=== PATIENT | female | born 1950 | race American Indian/Alaskan Native ===

== ENCOUNTER 2016-09-07 22:43 | Observation (INO) | payer MEDICAID, OTHER ==
[~2016-09-07] VITALS: Ht 165.1 cm; Wt 70.0 kg
[~2016-09-07 22:43] MED LIST: ALBU8.5H5 INH; FLUO20CA19 PO; FLUT16SP NAS; HYDR25TA11 PO; HYDR50TA13 PO; LEVO750T26 PO; OXYB5TAB7 PO; PHEN30CA PO; PREG75CA PO; QUET100T4 PO; QUET300T5 PO; TRAZ50TA18 PO
[2016-09-07 23:40] LABS: ASPARTATE AMINO TRANSFERASE 30 U/L (15-37); BLOOD UREA NITROGEN 6 mg/dL (7-18)
[2016-09-07 23:57] LABS: ACETAMINOPHEN < 2 mcg/mL (10-30)
[2016-09-08 00:32] LABS: DAU SCREEN DISCLAIMER
[2016-09-08] MEDS ORDERED: SERT25TA3 PO (01:34)
[2016-09-08] MEDS ORDERED: OXYB5TAB7 PO (01:34)
[2016-09-08] MEDS ORDERED: PREG50CA PO (01:34)
[2016-09-08] MEDS ORDERED: TRAZ50TA18 PO (01:34)
[2016-09-08] MEDS ORDERED: BISACODYL 10 MG SUPP PR PRN (05:00)
[2016-09-08] MEDS ORDERED: TRAZODONE 50MG TABLET PO PRN ×2 (05:00→21:00)
[2016-09-08] MEDS ORDERED: ACETAMINOPHEN 325 MG TABLET PO PRN (05:00)
[2016-09-08] MEDS ORDERED: POLYETHYLENE GLYCOL 17 GM PACKET PO PRN (05:00)
[2016-09-08] MEDS ORDERED: DOCUSATE 100 MG CAPSULE PO PRN (05:00)
[2016-09-08] MEDS ORDERED: FOLIC ACID 1 MG TABLET PO SCH (09:00)
[2016-09-08 17:33] VITALS: BP 112/71
[2016-09-08 19:21] VITALS: BP 113/70
[2016-09-08] MEDS: THIAMINE 100MG TABLET PO SCH (20:30)
[2016-09-08] MEDS: LORazepam 1MG TABLET PO PRN (23:52)
[2016-09-09] MEDS: THIAMINE 100MG TABLET PO SCH (08:26)
[2016-09-09] MEDS: LORazepam 1MG TABLET PO PRN ×2 (08:26→17:49)
[2016-09-09 08:33] VITALS: BP 112/72
[2016-09-09] MEDS ORDERED: OXYBUTYNIN CHLORIDE 5 MG TABLET PO SCH (09:00)
[2016-09-09] MEDS: FOLIC ACID 1 MG TABLET PO SCH (09:46)
[2016-09-09] MEDS: SERTRALINE 50MG TABLET PO SCH (10:13)
[2016-09-09] MEDS: SULFAMETH./TRIMETHOPRIM DS 800MG/160MG TABLET PO SCH ×2 (11:19→20:32)
[2016-09-09 20:01] VITALS: BP 111/75
[2016-09-09] MEDS: FLUOXETINE 20 MG CAPSULE PO SCH (20:31)
[2016-09-09] MEDS: TRAZODONE 150MG TABLET PO SCH (20:32)
[2016-09-09] MEDS: OXYBUTYNIN CHLORIDE 5 MG TABLET PO SCH (21:06)
[2016-09-10] MEDS: LORazepam 1MG TABLET PO PRN ×2 (01:39→16:42)
[2016-09-10 08:02] VITALS: BP 128/76
[2016-09-10] MEDS: OXYBUTYNIN CHLORIDE 5 MG TABLET PO SCH ×2 (08:14→20:40)
[2016-09-10] MEDS: THIAMINE 100MG TABLET PO SCH (08:14)
[2016-09-10] MEDS: SULFAMETH./TRIMETHOPRIM DS 800MG/160MG TABLET PO SCH ×2 (08:14→20:39)
[2016-09-10] MEDS: FOLIC ACID 1 MG TABLET PO SCH (08:14)
[2016-09-10] MEDS: SERTRALINE 50MG TABLET PO SCH (08:15)
[2016-09-10 20:00] VITALS: BP 110/73
[2016-09-10] MEDS: TRAZODONE 150MG TABLET PO SCH (20:39)
[2016-09-10] MEDS: FLUOXETINE 20 MG CAPSULE PO SCH (20:39)
[2016-09-11 08:32] VITALS: BP 83/53
[2016-09-11] MEDS: SULFAMETH./TRIMETHOPRIM DS 800MG/160MG TABLET PO SCH (08:47)
[2016-09-11] MEDS: FOLIC ACID 1 MG TABLET PO SCH (08:47)
[2016-09-11] MEDS: THIAMINE 100MG TABLET PO SCH (08:47)
[2016-09-11] MEDS: OXYBUTYNIN CHLORIDE 5 MG TABLET PO SCH ×2 (08:47→20:35)
[2016-09-11] MEDS: ARIPIPRAZOLE 10 MG TABLET PO SCH (12:38)
[2016-09-11] MEDS: LORazepam 1MG TABLET PO PRN ×2 (18:11→22:50)
[2016-09-11] MEDS: TRAZODONE 150MG TABLET PO SCH (20:35)
[2016-09-11] MEDS: FLUOXETINE 20 MG CAPSULE PO SCH (20:36)
[2016-09-11 21:02] VITALS: BP 122/76
[2016-09-12 08:00] VITALS: BP 100/63
[2016-09-12] MEDS: THIAMINE 100MG TABLET PO SCH (08:44)
[2016-09-12] MEDS: ARIPIPRAZOLE 10 MG TABLET PO SCH (08:44)
[2016-09-12] MEDS: OXYBUTYNIN CHLORIDE 5 MG TABLET PO SCH ×2 (08:44→20:50)
[2016-09-12] MEDS: FOLIC ACID 1 MG TABLET PO SCH (08:44)
[2016-09-12] MEDS ORDERED: FLUOXETINE 20 MG CAPSULE PO ONE (12:16)
[2016-09-12 20:05] VITALS: BP 104/61
[2016-09-12] MEDS: TRAZODONE 150MG TABLET PO SCH (20:50)
[2016-09-13 07:34] VITALS: BP 101/57
[2016-09-13] MEDS: ARIPIPRAZOLE 10 MG TABLET PO SCH (08:04)
[2016-09-13] MEDS: OXYBUTYNIN CHLORIDE 5 MG TABLET PO SCH (08:04)
[2016-09-13] MEDS: THIAMINE 100MG TABLET PO SCH (08:04)
[2016-09-13] MEDS: FOLIC ACID 1 MG TABLET PO SCH (08:31)
[2016-09-13] MEDS ORDERED: FLUOXETINE 20 MG CAPSULE PO SCH (09:00)
[2016-09-13] MEDS ORDERED: FLUO20CA8 PO (12:30)
[2016-09-13] MEDS ORDERED: ARIP10TA13 PO (12:30)
[2016-09-13] MEDS ORDERED: NALT50TA PO (12:33)
== END 2016-09-13 16:24 | disposition home or self-care (01) ==
LOC: ED 23:28 → EDIP 09-08 04:34 → 3E 09-08 17:28
PROVIDERS: ADMIT Internal Medicine
DX: R45.851 Suicidal ideations (principal); F43.21 Adjustment disorder with depressed mood; F31.9 Bipolar disorder, unspecified; F10.220 Alcohol dependence with intoxication, uncomplicated; M19.90 Unspecified osteoarthritis, unspecified site; E86.0 Dehydration; R79.89 Other specified abnormal findings of blood chemistry; E87.1 Hypo-osmolality and hyponatremia; F29 Unspecified psychosis not due to a substance or known physiological condition; N39.0 Urinary tract infection, site not specified; R45.850 Homicidal ideations; Z90.49 Acquired absence of other specified parts of digestive tract
CPT/HCPCS: 36415; 80053; 80307; 80329; 81001; 85025; 87086; 99285; G0378; Q0177; G0480

== ENCOUNTER 2016-12-16 17:48 | Inpatient (IN) | payer OTHER ==
[~2016-12-16] VITALS: Ht 170.2 cm; Wt 67.0 kg
[~2016-12-16 17:48] MED LIST changes: +ARIP10TA33 PO; +ETOMIDATE 40 MG/20 ML ONE; +FLUO20CA8 PO; +MAGNESIUM SULFATE 8 MEQ/2 ML, 2ML ONE; +MIDAZOLAM 1 MG/ML, 5ML ONE; +NALT50TA PO; +PREG50CA PO; +PROPOFOL 10 MG/ML, 50ML ONE; +SERT25TA3 PO; +VECURONIUM 10 MG ONE
[2016-12-16] MEDS ORDERED: LORazepam 2 MG/ML, 1ML ONE (17:52)
[2016-12-16] MEDS ORDERED: SODIUM CHLORIDE 0.9% 1,000ML IVBOLUS ONE (18:00)
[2016-12-16] MEDS ORDERED: PLEASE ENTER HEIGHT AND WEIGHT MC SCH (18:00)
[2016-12-16] MEDS ORDERED: LORazepam 2 MG/ML, 1ML IVPush ONE (18:00)
[2016-12-16] MEDS ORDERED: SODIUM CHLORIDE FLUSH 10ML SYR IVF ONE (18:00)
[2016-12-16 18:04] LABS: HEMATOCRIT 41.6 % (34.6-47.8); HEMOGLOBIN 13.9 g/dL (11.7-16.4); WHITE BLOOD COUNT 8.5 x10^3/uL (3.4-10)
[2016-12-16 18:22] LABS: ASPARTATE AMINO TRANSFERASE 28 U/L (15-37); BLOOD UREA NITROGEN 12 mg/dL (7-18)
[2016-12-16 18:26] LABS: DAU SCREEN DISCLAIMER
[2016-12-16 18:28] LABS: IS PT STATUS REG ER OR PRE ER? YES
[2016-12-16] MEDS ORDERED: METOPROLOL 1 MG/ML, 5ML ONE ×2 (18:54→19:07)
[2016-12-16] MEDS ORDERED: MAGNESIUM SULFATE PMX 2GM/50ML 50 ML IV ONE (19:00)
[2016-12-16] MEDS ORDERED: MAGNESIUM SULFATE 1 GM/2 ML IVPush ONE ×3 (19:00→19:30)
[2016-12-16] MEDS ORDERED: PROPOFOL 100 ML IV PRN (19:30)
[2016-12-16] MEDS ORDERED: VECURONIUM 10 MG IVPush ONE (19:30)
[2016-12-16] MEDS ORDERED: ESMOLOL/NS PMX 250 ML IV PRN ×2 (19:30→21:30)
[2016-12-16] MEDS ORDERED: MAGNESIUM SULFATE PMX 4GM/100M 100 ML IV ONE (19:30)
[2016-12-16] MEDS ORDERED: ETOMIDATE 40 MG/20 ML IVPush ONE (19:30)
[2016-12-16 19:33] LABS: ACETAMINOPHEN < 2 mcg/mL (10-30)
[2016-12-16 19:48] LABS: ABG COLLECTION SITE LEFT BRACHIAL
[2016-12-16] MEDS ORDERED: METOPROLOL 1 MG/ML, 5ML IVPush ONE (20:30)
[2016-12-16] MEDS ORDERED: MIDAZOLAM 1 MG/ML, 5ML IVPush ONE (20:30)
[2016-12-16] MEDS ORDERED: MIDAZOLAM HCL 25 MG in SODIUM CHLORIDE 0.9% 245 ML IV PRN (21:00)
[2016-12-16] MEDS ORDERED: SODIUM CHLORIDE FLUSH 10ML SYR IVF PRN (21:00)
[2016-12-16] MEDS ORDERED: BISACODYL 10 MG SUPP PR PRN ×2 (21:30→22:30)
[2016-12-16] MEDS ORDERED: SENNA/DOCUSATE TABLET NG PRN ×2 (21:30→22:30)
[2016-12-16] MEDS ORDERED: LACTULOSE 20 GM/30 ML UDC NG PRN ×2 (21:30→22:30)
[2016-12-16] MEDS ORDERED: GLUCAGON 1 MG IM PRN (21:30)
[2016-12-16] MEDS ORDERED: DEXTROSE 50%, 50ML SYRINGE IVPush PRN (21:30)
[2016-12-16] MEDS ORDERED: LIDOCAINE-MPF 1%, 2ML ENDO PRN ×2 (21:30→22:30)
[2016-12-16] MEDS ORDERED: PHARMACY MAY ADJ FOR RENAL FX MC SCH ×2 (21:30→22:30)
[2016-12-16] MEDS ORDERED: SENNOSIDES 8.8 MG/5 ML ORAL SOL NG PRN ×2 (21:30→22:30)
[2016-12-16] MEDS: ALBUTEROL/IPRATROPIUM 2.5MG/0.5MG, 3 ML INLINE SCH (22:30)
[2016-12-16] MEDS ORDERED: MIDAZOLAM 1 MG/ML, 2ML IVPush PRN (22:30)
[2016-12-16] MEDS ORDERED: PROPOFOL 100 ML IV ONE (23:19)
[2016-12-16] MEDS: FAMOTIDINE 20 MG/2 ML IV SCH (23:44)
[2016-12-16] MEDS: PROPOFOL 100 ML IV PRN (23:44)
[2016-12-17] MEDS: ALBUTEROL/IPRATROPIUM 2.5MG/0.5MG, 3 ML INLINE SCH ×2 (02:30→06:30)
[2016-12-17 02:32] LABS: HEMATOCRIT 38.3 % (34.6-47.8); HEMOGLOBIN 12.8 g/dL (11.7-16.4); WHITE BLOOD COUNT 7.7 x10^3/uL (3.4-10)
[2016-12-17 02:44] LABS: ASPARTATE AMINO TRANSFERASE 17 U/L (15-37); BLOOD UREA NITROGEN 10 mg/dL (7-18)
[2016-12-17] MEDS ORDERED: POTASSIUM CHLORIDE PMX 100 ML IV STA (03:08)
[2016-12-17] MEDS ORDERED: MAGNESIUM SULFATE PMX 2GM/50ML 50 ML IV STA (03:11)
[2016-12-17] MEDS: PROPOFOL 100 ML IV PRN ×4 (03:31→18:20)
[2016-12-17 04:27] LABS: ABG COLLECTION SITE LEFT RADIAL; COLLATERAL CIRCULATION TESTING NORMAL
[2016-12-17 04:59] VITALS: BP 128/79
[2016-12-17] MEDS ORDERED: LIDOCAINE/DEX 5% IV,2GM/500ML 500 ML IV SCH (07:30)
[2016-12-17] MEDS: LIDOCAINE/DEX 5% IV,2GM/500ML 500 ML IV PRN ×2 (07:57→16:11)
[2016-12-17] MEDS: SODIUM CHLORIDE FLUSH 10ML SYR IVF SCH ×2 (09:03→21:00)
[2016-12-17] MEDS: FAMOTIDINE 20 MG/2 ML IV SCH ×2 (09:04→20:59)
[2016-12-17] MEDS ORDERED: POTASSIUM CHLORIDE 40 MEQ in SODIUM CHLORIDE 0.9% 100 ML IV STA (11:17)
[2016-12-17] MEDS ORDERED: POTASSIUM CHLORIDE 10% 40 MEQ/30 ML UDC PO ONE ×2 (11:17→20:30)
[2016-12-17] MEDS: POTASSIUM CHLORIDE 30 MEQ in SODIUM CHLORIDE 0.9% 1,000 ML IV SCH (11:40)
[2016-12-17] MEDS: MIDAZOLAM HCL 50 MG in SODIUM CHLORIDE 0.9% 240 ML IV PRN (16:11)
[2016-12-17] MEDS ORDERED: MAGNESIUM SULFATE 1 GM/2 ML ONE (17:02)
[2016-12-17] MEDS ORDERED: ATROPINE 0.4 MG/ML, 1ML ONE (17:02)
[2016-12-17] MEDS ORDERED: EPINEPHRINE 1 MG/ML, 1ML ONE (17:02)
[2016-12-18] MEDS: PROPOFOL 100 ML IV PRN ×5 (00:01→21:58)
[2016-12-18] MEDS: POTASSIUM CHLORIDE 30 MEQ in SODIUM CHLORIDE 0.9% 1,000 ML IV SCH ×2 (02:29→16:28)
[2016-12-18] MEDS: LIDOCAINE/DEX 5% IV,2GM/500ML 500 ML IV PRN (02:30)
[2016-12-18 03:45] VITALS: BP 132/71
[2016-12-18 04:18] LABS: HEMATOCRIT 39.1 % (34.6-47.8); HEMOGLOBIN 12.9 g/dL (11.7-16.4); WHITE BLOOD COUNT 8.7 x10^3/uL (3.4-10)
[2016-12-18 04:25] LABS: BLOOD UREA NITROGEN 8 mg/dL (7-18)
[2016-12-18 04:26] LABS: ABG COLLECTION SITE RIGHT RADIAL; COLLATERAL CIRCULATION TESTING NORMAL
[2016-12-18] MEDS: MIDAZOLAM HCL 50 MG in SODIUM CHLORIDE 0.9% 240 ML IV PRN (04:41)
[2016-12-18] MEDS: ENOXAPARIN 40 MG/0.4 ML SQ SCH (10:14)
[2016-12-18] MEDS: FAMOTIDINE 20 MG/2 ML IV SCH (10:14)
[2016-12-18] MEDS: SODIUM CHLORIDE FLUSH 10ML SYR IVF SCH ×2 (10:14→19:54)
[2016-12-18] MEDS ORDERED: ALBUTEROL/IPRATROPIUM 2.5MG/0.5MG, 3 ML INLINE PRN (10:30)
[2016-12-18] MEDS: THIAMINE 100MG TABLET PO SCH (13:08)
[2016-12-18] MEDS ORDERED: POTASSIUM CHLORIDE 20 MEQ PACKET PO ONE ×2 (17:30→22:00)
[2016-12-18] MEDS: ACETAMINOPHEN 325 MG TABLET PO PRN (20:58)
[2016-12-19] MEDS: PROPOFOL 100 ML IV PRN ×2 (01:50→05:58)
[2016-12-19 04:00] VITALS: BP 118/60
[2016-12-19 04:39] LABS: ABG COLLECTION SITE RIGHT RADIAL; COLLATERAL CIRCULATION TESTING NORMAL
[2016-12-19 05:04] LABS: HEMOGLOBIN 12.6 g/dL (11.7-16.4); WHITE BLOOD COUNT 11.4 x10^3/uL (3.4-10)
[2016-12-19 05:14] LABS: BLOOD UREA NITROGEN 7 mg/dL (7-18)
[2016-12-19] MEDS: POTASSIUM CHLORIDE 30 MEQ in SODIUM CHLORIDE 0.9% 1,000 ML IV SCH (05:57)
[2016-12-19] MEDS ORDERED: MAGNESIUM SULFATE 3 GM in SODIUM CHLORIDE 0.9% 100 ML IV ONE (08:00)
[2016-12-19] MEDS: PANTOPRAZOLE 40 MG IV IVPush SCH (09:35)
[2016-12-19] MEDS: SODIUM CHLORIDE FLUSH 10ML SYR IVF SCH ×2 (09:35→20:17)
[2016-12-19] MEDS: ENOXAPARIN 40 MG/0.4 ML SQ SCH (09:35)
[2016-12-19] MEDS: THIAMINE 100MG TABLET PO SCH (09:35)
[2016-12-19] MEDS: LORazepam 2 MG/ML, 1ML IVPush PRN ×3 (16:05→22:41)
[2016-12-20] MEDS: POTASSIUM CHLORIDE 30 MEQ in SODIUM CHLORIDE 0.9% 1,000 ML IV SCH (00:16)
[2016-12-20] MEDS: LORazepam 2 MG/ML, 1ML IVPush PRN ×4 (00:50→15:29)
[2016-12-20 04:10] VITALS: BP 115/52
[2016-12-20 05:12] LABS: ABG COLLECTION SITE RIGHT RADIAL; COLLATERAL CIRCULATION TESTING NORMAL
[2016-12-20 05:23] LABS: BLOOD UREA NITROGEN 9 mg/dL (7-18)
[2016-12-20 05:29] LABS: HEMATOCRIT 36.9 % (34.6-47.8); HEMOGLOBIN 12.4 g/dL (11.7-16.4); WHITE BLOOD COUNT 10.5 x10^3/uL (3.4-10)
[2016-12-20] MEDS ORDERED: POTASSIUM CHLORIDE 20 MEQ TAB.ER.PRT PO ONE ×2 (06:00→21:00)
[2016-12-20] MEDS: ENOXAPARIN 40 MG/0.4 ML SQ SCH (10:37)
[2016-12-20] MEDS: THIAMINE 100MG TABLET PO SCH (10:37)
[2016-12-20] MEDS: PANTOPRAZOLE 40 MG IV IVPush SCH (12:40)
[2016-12-20] MEDS: SODIUM CHLORIDE FLUSH 10ML SYR IVF SCH ×2 (12:40→22:55)
[2016-12-20 19:45] VITALS: BP 119/75
[2016-12-20] MEDS ORDERED: POTASSIUM CHLORIDE 20 MEQ PACKET PO ONE (22:00)
[2016-12-21] MEDS ORDERED: POTASSIUM CHLORIDE 20 MEQ TAB.ER.PRT PO ONE
[2016-12-21 02:07] VITALS: BP 110/65
[2016-12-21] MEDS: LORazepam 2 MG/ML, 1ML IVPush PRN ×9 (02:10→22:42)
[2016-12-21 05:11] LABS: ABG COLLECTION SITE LEFT RADIAL; COLLATERAL CIRCULATION TESTING NORMAL
[2016-12-21 05:20] LABS: HEMATOCRIT 34.2 % (34.6-47.8); HEMOGLOBIN 11.4 g/dL (11.7-16.4); WHITE BLOOD COUNT 6.3 x10^3/uL (3.4-10)
[2016-12-21 05:28] LABS: ASPARTATE AMINO TRANSFERASE 14 U/L (15-37); BLOOD UREA NITROGEN 14 mg/dL (7-18)
[2016-12-21] MEDS: ACETAMINOPHEN 325 MG TABLET PO PRN ×2 (05:57→22:15)
[2016-12-21 07:41] VITALS: BP 102/68
[2016-12-21] MEDS: SODIUM CHLORIDE FLUSH 10ML SYR IVF SCH ×2 (09:24→20:41)
[2016-12-21] MEDS: PANTOPRAZOLE 40 MG IV IVPush SCH (09:33)
[2016-12-21] MEDS: THIAMINE 100MG TABLET PO SCH (09:33)
[2016-12-21] MEDS: ENOXAPARIN 40 MG/0.4 ML SQ SCH (09:33)
[2016-12-21 14:29] VITALS: BP 128/82
[2016-12-21 19:10] VITALS: BP 124/79
[2016-12-21] MEDS: FENTANYL PF 100 MCG/2ML IVPush PRN (23:30)
[2016-12-22] MEDS: LORazepam 2 MG/ML, 1ML IVPush PRN ×5 (02:20→22:06)
[2016-12-22 02:31] VITALS: BP 138/82
[2016-12-22] MEDS: FENTANYL PF 100 MCG/2ML IVPush PRN ×2 (03:10→05:51)
[2016-12-22 05:49] LABS: ABG COLLECTION SITE RIGHT RADIAL; COLLATERAL CIRCULATION TESTING NORMAL
[2016-12-22 06:21] LABS: HEMATOCRIT 33.6 % (34.6-47.8); HEMOGLOBIN 11.3 g/dL (11.7-16.4); WHITE BLOOD COUNT 5.6 x10^3/uL (3.4-10)
[2016-12-22 06:38] LABS: ASPARTATE AMINO TRANSFERASE 17 U/L (15-37); BLOOD UREA NITROGEN 14 mg/dL (7-18)
[2016-12-22 07:08] LABS: DIFF TOTAL CELLS COUNTED 100 CELL DIFF
[2016-12-22 07:12] LABS: VERIFY COUNTS? YES
[2016-12-22 07:49] VITALS: BP 146/80
[2016-12-22] MEDS: PANTOPRAZOLE 40 MG IV IVPush SCH (07:49)
[2016-12-22] MEDS: SODIUM CHLORIDE FLUSH 10ML SYR IVF SCH ×2 (07:50→22:07)
[2016-12-22] MEDS: THIAMINE 100MG TABLET PO SCH (07:50)
[2016-12-22] MEDS: ENOXAPARIN 40 MG/0.4 ML SQ SCH (07:50)
[2016-12-22 20:05] VITALS: BP 106/68
[2016-12-23] MEDS: LORazepam 2 MG/ML, 1ML IVPush PRN (01:49)
[2016-12-23] MEDS: FENTANYL PF 100 MCG/2ML IVPush PRN ×6 (02:42→22:58)
[2016-12-23 04:29] VITALS: BP 118/77
[2016-12-23 05:07] LABS: BLOOD UREA NITROGEN 20 mg/dL (7-18)
[2016-12-23 07:17] VITALS: BP 106/72
[2016-12-23] MEDS: THIAMINE 100MG TABLET PO SCH (08:10)
[2016-12-23] MEDS: ENOXAPARIN 40 MG/0.4 ML SQ SCH (08:10)
[2016-12-23] MEDS: SODIUM CHLORIDE FLUSH 10ML SYR IVF SCH ×2 (08:11→21:00)
[2016-12-23] MEDS: PANTOPRAZOLE 40 MG IV IVPush SCH (08:11)
[2016-12-23 08:55] LABS: ABG COLLECTION SITE RIGHT BRACHIAL
[2016-12-23 15:35] VITALS: BP 121/78
[2016-12-23] MEDS ORDERED: BISACODYL 10 MG SUPP PR PRN (20:00)
[2016-12-23] MEDS ORDERED: GLUCAGON 1 MG IM PRN (20:00)
[2016-12-23] MEDS ORDERED: PHARMACY MAY ADJ FOR RENAL FX MC SCH (20:00)
[2016-12-23] MEDS ORDERED: ACETAMINOPHEN 325 MG TABLET PO PRN (20:00)
[2016-12-23] MEDS ORDERED: LIDOCAINE-MPF 1%, 2ML ENDO PRN (20:00)
[2016-12-23] MEDS ORDERED: DEXTROSE 50%, 50ML SYRINGE IVPush PRN (20:00)
[2016-12-23] MEDS ORDERED: ALBUTEROL/IPRATROPIUM 2.5MG/0.5MG, 3 ML INLINE PRN (20:00)
[2016-12-23 21:30] VITALS: BP 127/70
[2016-12-24 02:14] VITALS: BP 100/64
[2016-12-24] MEDS: FENTANYL PF 100 MCG/2ML IVPush PRN ×4 (02:30→18:40)
[2016-12-24 06:07] LABS: HEMATOCRIT 37.3 % (34.6-47.8); HEMOGLOBIN 12.3 g/dL (11.7-16.4); WHITE BLOOD COUNT 7.2 x10^3/uL (3.4-10)
[2016-12-24 06:41] LABS: ASPARTATE AMINO TRANSFERASE 22 U/L (15-37); BLOOD UREA NITROGEN 34 mg/dL (7-18)
[2016-12-24 07:00] VITALS: BP 116/68
[2016-12-24] MEDS: ENOXAPARIN 40 MG/0.4 ML SQ SCH (08:45)
[2016-12-24] MEDS: PANTOPRAZOLE 40 MG IV IVPush SCH (08:45)
[2016-12-24] MEDS: SODIUM CHLORIDE FLUSH 10ML SYR IVF SCH ×2 (08:45→19:54)
[2016-12-24] MEDS: THIAMINE 100MG TABLET PO SCH (08:45)
[2016-12-24 12:32] VITALS: BP 108/67
[2016-12-24 12:43] LABS: BLOOD UREA NITROGEN 34 mg/dL (7-18)
[2016-12-24 13:52] LABS: HEMATOCRIT 37.9 % (34.6-47.8); HEMOGLOBIN 12.4 g/dL (11.7-16.4); WHITE BLOOD COUNT 8.7 x10^3/uL (3.4-10)
[2016-12-24 15:07] VITALS: BP 108/69
[2016-12-24 18:46] VITALS: BP 100/67
[2016-12-25 01:01] VITALS: BP 107/56
[2016-12-25 05:12] LABS: HEMATOCRIT 36.3 % (34.6-47.8); HEMOGLOBIN 11.8 g/dL (11.7-16.4); WHITE BLOOD COUNT 8.5 x10^3/uL (3.4-10)
[2016-12-25 05:26] LABS: BLOOD UREA NITROGEN 25 mg/dL (7-18)
[2016-12-25] MEDS ORDERED: CYANOCOBALAMIN 1,000 MCG/ML, 1ML IM ONE (07:00)
[2016-12-25 07:55] VITALS: BP 101/56
[2016-12-25] MEDS: ENOXAPARIN 40 MG/0.4 ML SQ SCH (09:19)
[2016-12-25] MEDS: THIAMINE 100MG TABLET PO SCH (09:19)
[2016-12-25] MEDS: OMEPRAZOLE 20 MG CAPSULE.DR PO SCH (09:19)
[2016-12-25] MEDS: SODIUM CHLORIDE FLUSH 10ML SYR IVF SCH ×2 (09:20→21:22)
[2016-12-25 13:22] VITALS: BP 101/61
[2016-12-25] MEDS ORDERED: TRAZ50TA18 PO (16:57)
[2016-12-25] MEDS ORDERED: QUET100T PO (16:57)
[2016-12-25 19:21] VITALS: BP 105/65
[2016-12-26 01:15] VITALS: BP 104/63
[2016-12-26 06:07] LABS: HEMATOCRIT 38.1 % (34.6-47.8); HEMOGLOBIN 12.8 g/dL (11.7-16.4); WHITE BLOOD COUNT 6.4 x10^3/uL (3.4-10)
[2016-12-26 06:38] LABS: BLOOD UREA NITROGEN 15 mg/dL (7-18)
[2016-12-26 07:35] VITALS: BP 99/63
[2016-12-26] MEDS: OMEPRAZOLE 20 MG CAPSULE.DR PO SCH (09:07)
[2016-12-26] MEDS: THIAMINE 100MG TABLET PO SCH (09:07)
[2016-12-26] MEDS: SODIUM CHLORIDE FLUSH 10ML SYR IVF SCH (09:08)
[2016-12-26] MEDS: ENOXAPARIN 40 MG/0.4 ML SQ SCH (09:08)
[2016-12-26 15:00] VITALS: BP 95/55
[2016-12-26 18:57] VITALS: BP 129/79
[2016-12-27 01:47] VITALS: BP 94/53
[2016-12-27 06:05] LABS: BLOOD UREA NITROGEN 14 mg/dL (7-18)
[2016-12-27 06:15] VITALS: BP 107/67
[2016-12-27 06:16] LABS: DIFF TOTAL CELLS COUNTED 100 CELL DIFF; HEMATOCRIT 39.4 % (34.6-47.8); HEMOGLOBIN 12.7 g/dL (11.7-16.4); WHITE BLOOD COUNT 10.9 x10^3/uL (3.4-10)
[2016-12-27 06:19] LABS: VERIFY COUNTS? YES
[2016-12-27 06:22] LABS: POLYCHROMASIA 1+
[2016-12-27] MEDS: SODIUM CHLORIDE FLUSH 10ML SYR IVF SCH ×2 (07:18→07:51)
[2016-12-27] MEDS: OMEPRAZOLE 20 MG CAPSULE.DR PO SCH (07:51)
[2016-12-27] MEDS: THIAMINE 100MG TABLET PO SCH (07:51)
[2016-12-27] MEDS: ENOXAPARIN 40 MG/0.4 ML SQ SCH (07:53)
[2016-12-27] MEDS ORDERED: TEMAZEPAM 30 MG CAPSULE PO PRN (08:00)
[2016-12-27 13:10] VITALS: BP 110/63
[2016-12-27] MEDS ORDERED: LURASIDONE 20 MG TABLET PO SCH (16:30)
[2016-12-27 19:13] VITALS: BP 122/73
[2016-12-27] MEDS ORDERED: TEMAZEPAM 15 MG CAPSULE ONE (23:06)
[2016-12-28] MEDS ORDERED: TEMAZEPAM 15 MG CAPSULE ONE (00:13)
[2016-12-28 01:38] VITALS: BP 117/64
[2016-12-28 07:25] LABS: HEMATOCRIT 40.6 % (34.6-47.8); HEMOGLOBIN 13.5 g/dL (11.7-16.4); WHITE BLOOD COUNT 7.4 x10^3/uL (3.4-10)
[2016-12-28 07:27] VITALS: BP 123/77
[2016-12-28 07:33] LABS: BLOOD UREA NITROGEN 14 mg/dL (7-18)
[2016-12-28] MEDS ORDERED: TEMA15CA PO (07:48)
[2016-12-28] MEDS ORDERED: LURA20TA PO (07:48)
[2016-12-28] MEDS: SODIUM CHLORIDE FLUSH 10ML SYR IVF SCH ×2 (09:00→09:04)
[2016-12-28] MEDS: OMEPRAZOLE 20 MG CAPSULE.DR PO SCH (09:04)
[2016-12-28] MEDS: ENOXAPARIN 40 MG/0.4 ML SQ SCH (09:04)
[2016-12-28] MEDS: THIAMINE 100MG TABLET PO SCH (09:04)
[2016-12-28] MEDS ORDERED: PNEUMOCOCCAL 23 VACCINE IM-VACC ONE (09:30)
== END 2016-12-28 12:50 | disposition home or self-care (01) | DRG 208 ==
LOC: ED 20:25 → EDIP 20:56 → CCU 21:44 → 5SO 12-20 17:52 → DCLOUNGE 12-28 12:35
PROVIDERS: ADMIT Hospitalist; ATTEND Hospitalist
PROC: 5A1945Z Respiratory Ventilation, 24-96 Consecutive Hours (ICD-10-PCS; principal; 2016-12-16)
PROC: 0BH17EZ Insertion of Endotracheal Airway into Trachea, Via Natural or Artificial Opening (ICD-10-PCS; 2016-12-16)
PROC: 02HV33Z Insertion of Infusion Device into Superior Vena Cava, Percutaneous Approach (ICD-10-PCS; 2016-12-16)
DX: J96.00 Acute respiratory failure, unspecified whether with hypoxia or hypercapnia (principal); I46.9 Cardiac arrest, cause unspecified; J69.0 Pneumonitis due to inhalation of food and vomit; G93.40 Encephalopathy, unspecified; I47.2 Ventricular tachycardia; F10.239 Alcohol dependence with withdrawal, unspecified; J98.11 Atelectasis; E87.6 Hypokalemia; F29 Unspecified psychosis not due to a substance or known physiological condition; F31.9 Bipolar disorder, unspecified; I48.91 Unspecified atrial fibrillation; F51.04 Psychophysiologic insomnia; M19.90 Unspecified osteoarthritis, unspecified site; Z78.1 Physical restraint status; Z87.891 Personal history of nicotine dependence; Z90.49 Acquired absence of other specified parts of digestive tract
CPT/HCPCS: 31500; 36415; 36600; 70450; 71010; 74000; 80048; 80053; 80307; 80329; 82040; 82140; 82607; 82803; 82962; 83735; 84100; 84132; 84443; 84478; 84484; 85025; 85610; 85730; 87070; 87081; 87205; 90732; 93005; 93306; 94002; 94003; 94150; 94640; 96361; 96374; 96375; 96376; 99292; J0171; J0461; J1650; J2001; J2250; J2704; J3010; J3475; J3480; J7620; C1751; C9113; G0479; G0480; J2060; J3420; J7030; J7050; S0028

== ENCOUNTER 2017-05-25 17:08 | Emergency (ER) | payer MEDICARE, MEDICAID ==
[~2017-05-25 17:08] MED LIST changes: -ETOMIDATE 40 MG/20 ML ONE; +LURA20TA PO; -MAGNESIUM SULFATE 8 MEQ/2 ML, 2ML ONE; -MIDAZOLAM 1 MG/ML, 5ML ONE; -PROPOFOL 10 MG/ML, 50ML ONE; +QUET100T PO; +TEMA15CA PO; -VECURONIUM 10 MG ONE
[2017-05-25 17:48] VITALS: BP 110/86
== END 2017-05-25 18:22 | disposition home or self-care (01) ==
LOC: ED 18:14
DX: R11.2 Nausea with vomiting, unspecified (principal); Z53.21 Procedure and treatment not carried out due to patient leaving prior to being seen by health care provider

== ENCOUNTER 2017-06-25 17:06 | Inpatient (IN) | payer MEDICARE, MEDICAID ==
[~2017-06-25] VITALS: Ht 167.6 cm; Wt 83.6 kg
[2017-06-25] MEDS ORDERED: SODIUM CHLORIDE 0.9% 1,000ML IVBOLUS ONE (17:30)
[2017-06-25] MEDS ORDERED: DILTIAZEM 5 MG/ML, 5ML ONE (17:43)
[2017-06-25] MEDS ORDERED: DILTIAZEM 5 MG/ML, 5ML IVPush ONE ×2 (18:00)
[2017-06-25 18:05] LABS: BASOPHILS % (AUTO) 0 % (0-1); EOSINOPHILS % (AUTO) 0 % (1-7); LYMPHOCYTES # (AUTO) 0.34 x10^3/uL (1-3.4); LYMPHOCYTES % (AUTO) 4 % (22-44); MD NO; MEAN CORPUSCULAR HEMOGLOBIN 30.4 pg (27.0-34.8); MEAN CORPUSCULAR HGB CONC 33.1 g/dL (32.4-35.8); MEAN CORPUSCULAR VOLUME 91.9 fL (80-100); MEAN PLATELET VOLUME 6.5 fL (7.4-10.4); MONOCYTES # (AUTO) 0.52 x10^3/uL (0.2-0.8); MONOCYTES % (AUTO) 6 % (2-9); NEUTROPHILS # (AUTO) 7.89 x10^3/uL (1.8-6.8); NEUTROPHILS % (AUTO) 90 % (42-75); PLATELET COUNT 190 x10^3/uL (130-400); RED BLOOD COUNT 4.55 x10^6/uL (3.82-5.3); RED CELL DISTRIBUTION WIDTH 16.7 % (9.6-15.2)
[2017-06-25 18:13] LABS: ALANINE AMINOTRANSFERASE 48 U/L (12-78); ALBUMIN 3.4 g/dL (3.4-5.0); ANION GAP 25 mmol/L (5-15); CALCIUM 8.5 mg/dL (8.5-10.1); CHLORIDE 99 mmol/L (98-107); CREATININE 1.21 mg/dL (0.55-1.02)
[2017-06-25] MEDS ORDERED: QUET100T4 PO (18:14)
[2017-06-25] MEDS ORDERED: TRAZ100T15 PO (18:14)
[2017-06-25 18:18] LABS: ALKALINE PHOSPHATASE 133 U/L (45-117); BILIRUBIN,TOTAL 0.8 mg/dL (0.2-1.0)
[2017-06-25] MEDS ORDERED: DILTIAZEM 125 MG in SODIUM CHLORIDE 0.9% 100 ML IV PRN ×2 (19:00→20:30)
[2017-06-25] MEDS ORDERED: ASPIRIN 81 MG TABLET CHEW PO ONE (19:00)
[2017-06-25] MEDS ORDERED: ASPIRIN 81 MG TABLET CHEW ONE ×2 (19:09→19:43)
[2017-06-25] MEDS ORDERED: SODIUM CHLORIDE 0.9% 1,000 ML IV ONE (19:17)
[2017-06-25] MEDS ORDERED: ONDANSETRON 2MG/ML, 2ML IVPush ONE (19:30)
[2017-06-25] MEDS ORDERED: ONDANSETRON ODT 4 MG PO ONE (19:30)
[2017-06-25] MEDS ORDERED: ONDANSETRON 2MG/ML, 2ML IVPush PRN ×2 (19:30→20:30)
[2017-06-25] MEDS ORDERED: LORazepam 2 MG/ML, 1ML ONE (19:42)
[2017-06-25] MEDS ORDERED: LORazepam 2 MG/ML, 1ML IVPush ONE (20:00)
[2017-06-25] MEDS ORDERED: LACTATED RINGERS 1,000 ML IVBOLUS ONE (20:30)
[2017-06-25] MEDS ORDERED: DIGOXIN 0.25 MG/ML, 2ML IVPush ONE (20:30)
[2017-06-25] MEDS ORDERED: ENOXAPARIN 40 MG/0.4 ML SQ SCH (20:30)
[2017-06-25] MEDS ORDERED: ONDANSETRON ODT 4 MG PO PRN (20:30)
[2017-06-25 20:46] VITALS: BP 106/67
[2017-06-25] MEDS ORDERED: LACTATED RINGERS 1,000 ML IV SCH (21:30)
[2017-06-25] MEDS ORDERED: PERMETHRIN CRM 5%, 60GM TP SCH (22:00)
[2017-06-25 23:20] LABS: TROPONIN I 0.159 ng/mL (0.000-0.045)
[2017-06-26] MEDS: LORazepam 2 MG/ML, 1ML IVPush PRN ×3 (00:08→04:49)
[2017-06-26] MEDS: PIPERONYL BUTOXIDE/PYRETHRINS SHAMPOO TP SCH (00:15)
[2017-06-26 01:31] LABS: MICROSCOPIC AUTO
[2017-06-26 01:34] LABS: CULTURE INDICATED? YES
[2017-06-26 01:43] LABS: AMPHETAMINE SCREEN, URINE Negative (Negative); BARBITURATE SCREEN, URINE Negative (Negative); BENZODIAZEPINE SCREEN, URINE Negative (Negative); CANNABINOID SCREEN, URINE Negative (Negative); COCAINE SCREEN, URINE Negative (Negative); METHADONE SCREEN, URINE Negative (Negative); OPIATE SCREEN, URINE Negative (Negative)
[2017-06-26] MEDS ORDERED: DIGOXIN 0.25 MG/ML, 2ML IVPush SCH (02:30)
[2017-06-26] MEDS ORDERED: CEFTRIAXONE PMX 1GM/50ML 50 ML IV SCH (03:00)
[2017-06-26 03:07] VITALS: BP 111/66
[2017-06-26 06:24] LABS: BASOPHILS # (AUTO) 0.02 x10^3/uL (0-0.1); BASOPHILS % (AUTO) 0 % (0-1); EOSINOPHILS % (AUTO) 0 % (1-7); LYMPHOCYTES # (AUTO) 0.33 x10^3/uL (1-3.4); LYMPHOCYTES % (AUTO) 4 % (22-44); MD NO; MEAN CORPUSCULAR HEMOGLOBIN 29.7 pg (27.0-34.8); MEAN CORPUSCULAR HGB CONC 33.1 g/dL (32.4-35.8); MEAN CORPUSCULAR VOLUME 89.9 fL (80-100); MEAN PLATELET VOLUME 6.6 fL (7.4-10.4); MONOCYTES # (AUTO) 0.21 x10^3/uL (0.2-0.8); MONOCYTES % (AUTO) 3 % (2-9); NEUTROPHILS # (AUTO) 7.23 x10^3/uL (1.8-6.8); NEUTROPHILS % (AUTO) 93 % (42-75); PLATELET COUNT 159 x10^3/uL (130-400); RED CELL DISTRIBUTION WIDTH 16.9 % (9.6-15.2)
[2017-06-26] MEDS ORDERED: FUROSEMIDE 20 MG/2 ML IV ONE ×2 (06:30→09:30)
[2017-06-26 06:36] LABS: ALANINE AMINOTRANSFERASE 37 U/L (12-78); ALBUMIN 2.9 g/dL (3.4-5.0); ANION GAP 16 mmol/L (5-15); CALCIUM 8.4 mg/dL (8.5-10.1); CHLORIDE 104 mmol/L (98-107); CREATININE 1.04 mg/dL (0.55-1.02)
[2017-06-26 06:41] LABS: ALKALINE PHOSPHATASE 111 U/L (45-117); TOTAL PROTEIN 6.7 g/dL (6.4-8.2)
[2017-06-26 08:40] VITALS: BP 101/62
[2017-06-26] MEDS ORDERED: FLUMAZENIL 0.1 MG/1 ML, 5ML IVPush ONE ×2 (09:30→12:00)
[2017-06-26] MEDS ORDERED: AMIODARONE 150 MG in DEXTROSE 5% 100 ML IVPB ONE (12:30)
[2017-06-26 12:31] LABS: FIO2 90 %
[2017-06-26] MEDS: AMIODARONE 450 MG in DEXTROSE 5% 250 ML IV PRN ×2 (12:54→21:47)
[2017-06-26] MEDS: FILTER 0.22 MICRON IV PRN (12:54)
[2017-06-26] MEDS: DOXYCYCLINE 100 MG in DEXTROSE 5% 250 ML IV SCH (12:55)
[2017-06-26] MEDS ORDERED: HEPARIN 5,000 UNITS/ML, 1ML IV ONE (13:30)
[2017-06-26] MEDS ORDERED: PROPOFOL 10 MG/ML, 100ML IV ONE (14:00)
[2017-06-26] MEDS ORDERED: SUCCINYLCHOLINE 20 MG/ML, 10ML ONE (14:00)
[2017-06-26] MEDS ORDERED: MIDAZOLAM 1 MG/ML, 5ML ONE (14:00)
[2017-06-26] MEDS: CEFTRIAXONE PMX 2GM/50ML 50 ML IV SCH (15:00)
[2017-06-26] MEDS: HEPARIN 25,000 UNITS/500ML PMX 500 ML IV PRN (15:14)
[2017-06-26] MEDS: ALBUTEROL/IPRATROPIUM 2.5MG/0.5MG, 3 ML INLINE SCH ×3 (16:30→23:13)
[2017-06-26] MEDS: FAMOTIDINE 20 MG/2 ML IV SCH (16:30)
[2017-06-26] MEDS ORDERED: BISACODYL 10 MG SUPP PR PRN (16:30)
[2017-06-26] MEDS ORDERED: SENNA/DOCUSATE TABLET NG PRN (16:30)
[2017-06-26] MEDS ORDERED: LIDOCAINE-MPF 1%, 2ML ENDO PRN (16:30)
[2017-06-26] MEDS ORDERED: PHARMACY MAY ADJ FOR RENAL FX MC SCH (16:30)
[2017-06-26] MEDS ORDERED: SENNOSIDES 8.8 MG/5 ML ORAL SOL NG PRN (16:30)
[2017-06-26] MEDS ORDERED: LACTULOSE 20 GM/30 ML UDC NG PRN (16:30)
[2017-06-26] MEDS: FUROSEMIDE 20 MG/2 ML IV SCH (17:00)
[2017-06-26] MEDS: CEFTRIAXONE 2 GM in DEXTROSE 5% 50 ML IVPB SCH (17:00)
[2017-06-26] MEDS ORDERED: DILTIAZEM 125 MG in SODIUM CHLORIDE 0.9% 100 ML IV SCH (20:30)
[2017-06-26] MEDS ORDERED: FAMOTIDINE 20 MG/2 ML IVPush SCH (21:00)
[2017-06-26] MEDS: POTASSIUM CHLORIDE 10% 20 MEQ/15 ML UDC PO SCH (21:27)
[2017-06-26] MEDS: ACETAMINOPHEN 325 MG TABLET PO PRN (21:37)
[2017-06-26 21:55] LABS: TROPONIN I 0.164 ng/mL (0.000-0.045)
[2017-06-26] MEDS: HEPARIN 5,000 UNITS/ML, 1ML IV PRN (22:50)
[2017-06-26] MEDS: PROPOFOL 100 ML IV PRN (23:02)
[2017-06-27] MEDS: DOXYCYCLINE 100 MG in DEXTROSE 5% 250 ML IV SCH ×3 (00:27→23:18)
[2017-06-27] MEDS: PROPOFOL 100 ML IV PRN ×5 (02:53→23:46)
[2017-06-27] MEDS: ALBUTEROL/IPRATROPIUM 2.5MG/0.5MG, 3 ML INLINE SCH ×6 (03:00→23:08)
[2017-06-27 04:42] LABS: BASOPHILS # (AUTO) 0.01 x10^3/uL (0-0.1); BASOPHILS % (AUTO) 0 % (0-1); EOSINOPHILS # (AUTO) 0.02 x10^3/uL (0-0.4); EOSINOPHILS % (AUTO) 0 % (1-7); LYMPHOCYTES # (AUTO) 1.02 x10^3/uL (1-3.4); LYMPHOCYTES % (AUTO) 17 % (22-44); MD NO; MEAN CORPUSCULAR HEMOGLOBIN 30.6 pg (27.0-34.8); MEAN CORPUSCULAR HGB CONC 33.5 g/dL (32.4-35.8); MEAN CORPUSCULAR VOLUME 91.5 fL (80-100); MEAN PLATELET VOLUME 7.6 fL (7.4-10.4); MONOCYTES # (AUTO) 0.38 x10^3/uL (0.2-0.8); MONOCYTES % (AUTO) 6 % (2-9); NEUTROPHILS % (AUTO) 76 % (42-75); PLATELET COUNT 105 x10^3/uL (130-400); RED BLOOD COUNT 3.95 x10^6/uL (3.82-5.3); RED CELL DISTRIBUTION WIDTH 16.5 % (9.6-15.2)
[2017-06-27 04:49] LABS: ALANINE AMINOTRANSFERASE 26 U/L (12-78); ALBUMIN 2.7 g/dL (3.4-5.0); ANION GAP 10 mmol/L (5-15); CALCIUM 8.3 mg/dL (8.5-10.1); CHLORIDE 98 mmol/L (98-107); CREATININE 0.98 mg/dL (0.55-1.02)
[2017-06-27 04:52] LABS: ALKALINE PHOSPHATASE 95 U/L (45-117); BILIRUBIN,TOTAL 0.8 mg/dL (0.2-1.0); TOTAL PROTEIN 6.7 g/dL (6.4-8.2)
[2017-06-27] MEDS: FAMOTIDINE 20 MG/2 ML IV SCH ×2 (05:05→16:58)
[2017-06-27] MEDS: POTASSIUM CHLORIDE 10% 20 MEQ/15 ML UDC PO SCH (07:45)
[2017-06-27] MEDS: FUROSEMIDE 20 MG/2 ML IV SCH ×2 (07:45→16:58)
[2017-06-27 08:48] LABS: TROPONIN I 0.133 ng/mL (0.000-0.045)
[2017-06-27] MEDS ORDERED: POTASSIUM PHOSPHATE 44 MEQ in SODIUM CHLORIDE 0.9% 500 ML IV ONE (09:00)
[2017-06-27] MEDS ORDERED: MAGNESIUM SULFATE PMX 2GM/50ML 50 ML IV ONE (09:30)
[2017-06-27] MEDS: FENTANYL PF 100 MCG/2ML IVPush PRN ×2 (10:26→18:44)
[2017-06-27] MEDS: HEPARIN 5,000 UNITS/ML, 1ML IV PRN (13:28)
[2017-06-27] MEDS: INSULIN LISPRO 100 UNITS/ML, PEN SQ-INSULIN SCH ×3 (13:29→21:00)
[2017-06-27] MEDS: AMIODARONE 450 MG in DEXTROSE 5% 250 ML IV PRN (13:29)
[2017-06-27] MEDS: FILTER 0.22 MICRON IV PRN (13:29)
[2017-06-27] MEDS: CEFTRIAXONE PMX 2GM/50ML 50 ML IV SCH (15:00)
[2017-06-27] MEDS: HEPARIN 25,000 UNITS/500ML PMX 500 ML IV PRN (15:32)
[2017-06-27] MEDS: CEFTRIAXONE 2 GM in DEXTROSE 5% 50 ML IVPB SCH (16:59)
[2017-06-27] MEDS ORDERED: POTASSIUM CHLORIDE 20 MEQ TAB.ER.PRT PO ONE ×2 (19:00→23:30)
[2017-06-28 02:22] LABS: ANION GAP 8 mmol/L (5-15); CALCIUM 7.7 mg/dL (8.5-10.1); CHLORIDE 100 mmol/L (98-107)
[2017-06-28 02:25] LABS: MEAN CORPUSCULAR HEMOGLOBIN 30.8 pg (27.0-34.8); MEAN CORPUSCULAR HGB CONC 33.9 g/dL (32.4-35.8); MEAN CORPUSCULAR VOLUME 90.9 fL (80-100); RED BLOOD COUNT 3.47 x10^6/uL (3.82-5.3); RED CELL DISTRIBUTION WIDTH 16.3 % (9.6-15.2)
[2017-06-28 02:39] LABS: BASOPHILS # (AUTO) 0.01 x10^3/uL (0-0.1); BASOPHILS % (AUTO) 0 % (0-1); EOSINOPHILS # (AUTO) 0.03 x10^3/uL (0-0.4); EOSINOPHILS % (AUTO) 1 % (1-7); LYMPHOCYTES % (AUTO) 12 % (22-44); MD SCAN; MEAN PLATELET VOLUME 8.4 fL (7.4-10.4); MONOCYTES # (AUTO) 0.26 x10^3/uL (0.2-0.8); MONOCYTES % (AUTO) 6 % (2-9); NEUTROPHILS # (AUTO) 3.42 x10^3/uL (1.8-6.8); NEUTROPHILS % (AUTO) 81 % (42-75); PLATELET COUNT 77 x10^3/uL (130-400)
[2017-06-28] MEDS: ALBUTEROL/IPRATROPIUM 2.5MG/0.5MG, 3 ML INLINE SCH ×4 (02:59→15:00)
[2017-06-28] MEDS: FAMOTIDINE 20 MG/2 ML IV SCH ×2 (04:01→17:08)
[2017-06-28] MEDS: PROPOFOL 100 ML IV PRN (04:01)
[2017-06-28] MEDS: HEPARIN 5,000 UNITS/ML, 1ML IV PRN ×2 (04:20→17:45)
[2017-06-28] MEDS: POTASSIUM CHLORIDE 10% 40 MEQ/30 ML UDC PO SCH ×3 (05:23→20:22)
[2017-06-28] MEDS: INSULIN LISPRO 100 UNITS/ML, PEN SQ-INSULIN SCH ×4 (07:00→20:23)
[2017-06-28] MEDS: AMIODARONE 450 MG in DEXTROSE 5% 250 ML IV PRN ×2 (07:22→23:22)
[2017-06-28] MEDS: FUROSEMIDE 20 MG/2 ML IV SCH ×2 (08:15→17:07)
[2017-06-28] MEDS ORDERED: DEXMEDETOMIDINE 1,000 MCG in SODIUM CHLORIDE 0.9% 240 ML IV PRN (08:30)
[2017-06-28] MEDS ORDERED: DEXMEDETOMIDINE 200 MCG in SODIUM CHLORIDE 0.9% 48 ML IV PRN (09:00)
[2017-06-28] MEDS: DOXYCYCLINE 100 MG in DEXTROSE 5% 250 ML IV SCH ×2 (11:59→23:24)
[2017-06-28 13:58] LABS: HIT RESULT NEGATIVE (NEGATIVE)
[2017-06-28] MEDS: HEPARIN 25,000 UNITS/500ML PMX 500 ML IV PRN (15:31)
[2017-06-28] MEDS: CEFTRIAXONE 2 GM in DEXTROSE 5% 50 ML IVPB SCH (17:07)
[2017-06-28] MEDS: TRAZODONE 100MG TABLET PO SCH (20:23)
[2017-06-28] MEDS: QUETIAPINE 100MG TABLET PO SCH (20:23)
[2017-06-28] MEDS: FILTER 0.22 MICRON IV PRN (23:26)
[2017-06-29] MEDS: METRONIDAZOLE PMX 500MG/100ML 100 ML IV SCH ×3 (03:35→20:21)
[2017-06-29] MEDS: FAMOTIDINE 20 MG/2 ML IV SCH ×2 (03:35→16:30)
[2017-06-29 04:38] LABS: ANION GAP 8 mmol/L (5-15); CALCIUM 8.5 mg/dL (8.5-10.1); CHLORIDE 102 mmol/L (98-107)
[2017-06-29 04:40] LABS: CREATININE 0.74 mg/dL (0.55-1.02); TRIGLYCERIDES 65 mg/dL (50-200)
[2017-06-29] MEDS: THIAMINE 100MG TABLET PO SCH ×2 (04:44→08:00)
[2017-06-29 04:45] LABS: MEAN CORPUSCULAR HGB CONC 33.9 g/dL (32.4-35.8); MEAN CORPUSCULAR VOLUME 91.5 fL (80-100); MEAN PLATELET VOLUME 7.8 fL (7.4-10.4); PLATELET COUNT 87 x10^3/uL (130-400); RED BLOOD COUNT 3.33 x10^6/uL (3.82-5.3); RED CELL DISTRIBUTION WIDTH 16.9 % (9.6-15.2)
[2017-06-29 05:14] LABS: BASOPHILS % (AUTO) 0 % (0-1); EOSINOPHILS # (AUTO) 0.07 x10^3/uL (0-0.4); EOSINOPHILS % (AUTO) 2 % (1-7); LYMPHOCYTES # (AUTO) 0.83 x10^3/uL (1-3.4); LYMPHOCYTES % (AUTO) 27 % (22-44); MD SCAN; MONOCYTES # (AUTO) 0.41 x10^3/uL (0.2-0.8); MONOCYTES % (AUTO) 13 % (2-9); NEUTROPHILS # (AUTO) 1.78 x10^3/uL (1.8-6.8); NEUTROPHILS % (AUTO) 58 % (42-75)
[2017-06-29] MEDS: INSULIN LISPRO 100 UNITS/ML, PEN SQ-INSULIN SCH (07:00)
[2017-06-29] MEDS: POTASSIUM CHLORIDE 10% 40 MEQ/30 ML UDC PO SCH ×2 (08:01→20:22)
[2017-06-29] MEDS: FUROSEMIDE 20 MG/2 ML IV SCH ×2 (08:01→18:39)
[2017-06-29] MEDS: AMIODARONE 200 MG TABLET PO SCH ×2 (10:41→20:21)
[2017-06-29] MEDS ORDERED: OMNIPAQUE 350 MG/ML, 100ML BOTTLE ONE (11:31)
[2017-06-29] MEDS: DOXYCYCLINE 100 MG in DEXTROSE 5% 250 ML IV SCH ×2 (12:05→23:54)
[2017-06-29] MEDS: HEPARIN 25,000 UNITS/500ML PMX 500 ML IV PRN (12:07)
[2017-06-29] MEDS: SODIUM CHLORIDE 0.9% 1,000 ML IV SCH ×2 (12:29→22:08)
[2017-06-29 14:56] VITALS: BP 99/61
[2017-06-29] MEDS: CEFTRIAXONE 2 GM in DEXTROSE 5% 50 ML IVPB SCH (18:39)
[2017-06-29 19:09] VITALS: BP 120/80
[2017-06-29] MEDS ORDERED: QUETIAPINE 25MG TABLET ONE (20:11)
[2017-06-29] MEDS: TRAZODONE 100MG TABLET PO SCH (20:21)
[2017-06-29] MEDS: QUETIAPINE 100MG TABLET PO SCH (20:22)
[2017-06-30 01:31] VITALS: BP 93/61
[2017-06-30] MEDS: METRONIDAZOLE PMX 500MG/100ML 100 ML IV SCH ×2 (03:38→12:50)
[2017-06-30] MEDS: FAMOTIDINE 20 MG/2 ML IV SCH (04:52)
[2017-06-30 05:10] LABS: BASOPHILS # (AUTO) 0.01 x10^3/uL (0-0.1); BASOPHILS % (AUTO) 0 % (0-1); EOSINOPHILS # (AUTO) 0.13 x10^3/uL (0-0.4); EOSINOPHILS % (AUTO) 5 % (1-7); LYMPHOCYTES # (AUTO) 0.81 x10^3/uL (1-3.4); LYMPHOCYTES % (AUTO) 27 % (22-44); MD NO; MEAN CORPUSCULAR HEMOGLOBIN 30.7 pg (27.0-34.8); MEAN CORPUSCULAR HGB CONC 33.4 g/dL (32.4-35.8); MEAN PLATELET VOLUME 7.5 fL (7.4-10.4); MONOCYTES # (AUTO) 0.57 x10^3/uL (0.2-0.8); MONOCYTES % (AUTO) 19 % (2-9); NEUTROPHILS # (AUTO) 1.43 x10^3/uL (1.8-6.8); NEUTROPHILS % (AUTO) 48 % (42-75); PLATELET COUNT 114 x10^3/uL (130-400); RED BLOOD COUNT 3.44 x10^6/uL (3.82-5.3); RED CELL DISTRIBUTION WIDTH 16.9 % (9.6-15.2)
[2017-06-30 05:17] LABS: ANION GAP 10 mmol/L (5-15); CALCIUM 9.1 mg/dL (8.5-10.1); CHLORIDE 102 mmol/L (98-107)
[2017-06-30 05:20] LABS: CREATININE 0.72 mg/dL (0.55-1.02)
[2017-06-30 07:12] VITALS: BP 88/54
[2017-06-30] MEDS ORDERED: MAGNESIUM SULFATE PMX 2GM/50ML 50 ML IV ONE (08:00)
[2017-06-30] MEDS: THIAMINE 100MG TABLET PO SCH (08:13)
[2017-06-30] MEDS: ACETAMINOPHEN 325 MG TABLET PO PRN (08:13)
[2017-06-30] MEDS: AMIODARONE 200 MG TABLET PO SCH ×2 (08:14→20:18)
[2017-06-30] MEDS: FUROSEMIDE 20 MG/2 ML IV SCH (08:14)
[2017-06-30] MEDS: SODIUM CHLORIDE 0.9% 1,000 ML IV SCH (08:14)
[2017-06-30] MEDS: POTASSIUM CHLORIDE 10% 40 MEQ/30 ML UDC PO SCH (09:00)
[2017-06-30] MEDS: HEPARIN 25,000 UNITS/500ML PMX 500 ML IV PRN (10:59)
[2017-06-30] MEDS: DOXYCYCLINE 100 MG in DEXTROSE 5% 250 ML IV SCH (12:50)
[2017-06-30 12:51] VITALS: BP 111/64
[2017-06-30] MEDS: metroNIDAZOLE 500 MG TABLET PO SCH ×2 (16:43→20:18)
[2017-06-30] MEDS: RIVAROXABAN 15 MG TABLET PO SCH (16:43)
[2017-06-30 19:37] VITALS: BP 109/65
[2017-06-30] MEDS ORDERED: QUETIAPINE 25MG TABLET ONE (20:13)
[2017-06-30] MEDS: TRAZODONE 100MG TABLET PO SCH (20:17)
[2017-06-30] MEDS: QUETIAPINE 100MG TABLET PO SCH (20:18)
[2017-07-01 01:07] VITALS: BP 118/72
[2017-07-01 05:25] LABS: MEAN CORPUSCULAR HEMOGLOBIN 30.5 pg (27.0-34.8); MEAN CORPUSCULAR HGB CONC 33.7 g/dL (32.4-35.8); MEAN CORPUSCULAR VOLUME 90.7 fL (80-100); MEAN PLATELET VOLUME 7.2 fL (7.4-10.4); PLATELET COUNT 131 x10^3/uL (130-400); RED BLOOD COUNT 3.23 x10^6/uL (3.82-5.3); RED CELL DISTRIBUTION WIDTH 16.5 % (9.6-15.2)
[2017-07-01 05:28] LABS: ANION GAP 8 mmol/L (5-15); CALCIUM 8.9 mg/dL (8.5-10.1); CHLORIDE 102 mmol/L (98-107); CREATININE 0.69 mg/dL (0.55-1.02)
[2017-07-01 06:19] LABS: MD YES
[2017-07-01 06:24] LABS: BAND#(MANUAL) 0.03 x10^3/uL; BANDS%(MANUAL) 1 % (0-7); EOS#(MANUAL) 0.16 x10^3/uL (0.0-0.4); EOS% (MANUAL) 6 % (1-7); LYMPH#(MANUAL) 0.65 x10^3/uL (1-3.4); LYMPHS% (MANUAL) 24 % (22-44); MONOS#(MANUAL) 0.51 x10^3/uL (0.3-2.7); MONOS% (MANUAL) 19 % (2-9); REACTIVE LYMPHS # (MANUAL) 0.03 x10^3/uL (0-0); REACTIVE LYMPHS % (MANUAL) 1 % (0-0); SEG#(MANUAL) 1.32 x10^3/uL (1.8-6.8); SEGS% (MANUAL) 49 % (42-75)
[2017-07-01 06:25] LABS: ANISOCYTOSIS 1+
[2017-07-01 06:26] LABS: <PLATELET ESTIMATE> DECREASED; <PLT MORPHOLOGY> NORMAL PLT MORPH; POLYCHROMASIA 1+
[2017-07-01] MEDS: metroNIDAZOLE 500 MG TABLET PO SCH ×3 (09:24→20:33)
[2017-07-01] MEDS: AMIODARONE 200 MG TABLET PO SCH ×2 (09:24→20:34)
[2017-07-01] MEDS: FUROSEMIDE 40 MG TABLET PO SCH (09:25)
[2017-07-01] MEDS: POTASSIUM CHLORIDE 10 MEQ TABLET.ER PO SCH (09:25)
[2017-07-01] MEDS: THIAMINE 100MG TABLET PO SCH (09:25)
[2017-07-01 09:45] VITALS: BP 104/68
[2017-07-01] MEDS ORDERED: DIPHENHYDRAMINE 25 MG CAPSULE PO ONE (15:00)
[2017-07-01] MEDS: RIVAROXABAN 15 MG TABLET PO SCH (17:33)
[2017-07-01 20:24] VITALS: BP 99/65
[2017-07-01] MEDS ORDERED: DIPHENHYDRAMINE 25 MG CAPSULE ONE (20:29)
[2017-07-01] MEDS ORDERED: QUETIAPINE 25MG TABLET ONE (20:30)
[2017-07-01] MEDS: TRAZODONE 100MG TABLET PO SCH (20:33)
[2017-07-01] MEDS: QUETIAPINE 100MG TABLET PO SCH (20:34)
[2017-07-02 01:36] VITALS: BP 108/69
[2017-07-02 05:23] LABS: MEAN CORPUSCULAR HEMOGLOBIN 30.6 pg (27.0-34.8); MEAN CORPUSCULAR HGB CONC 33.4 g/dL (32.4-35.8); MEAN CORPUSCULAR VOLUME 91.5 fL (80-100); MEAN PLATELET VOLUME 7.5 fL (7.4-10.4); PLATELET COUNT 175 x10^3/uL (130-400); RED BLOOD COUNT 3.61 x10^6/uL (3.82-5.3); RED CELL DISTRIBUTION WIDTH 16.8 % (9.6-15.2)
[2017-07-02 05:29] LABS: CHLORIDE 100 mmol/L (98-107)
[2017-07-02 05:33] LABS: ANION GAP 9 mmol/L (5-15); CALCIUM 9.5 mg/dL (8.5-10.1); CREATININE 0.85 mg/dL (0.55-1.02); TRIGLYCERIDES 114 mg/dL (50-200)
[2017-07-02 06:00] LABS: MD YES
[2017-07-02 06:03] LABS: EOS#(MANUAL) 0.27 x10^3/uL (0.0-0.4); EOS% (MANUAL) 8 % (1-7); LYMPH#(MANUAL) 1.29 x10^3/uL (1-3.4); LYMPHS% (MANUAL) 38 % (22-44); MONOS#(MANUAL) 0.78 x10^3/uL (0.3-2.7); MONOS% (MANUAL) 23 % (2-9); SEG#(MANUAL) 1.05 x10^3/uL (1.8-6.8); SEGS% (MANUAL) 31 % (42-75)
[2017-07-02 06:04] LABS: <PLATELET ESTIMATE> ADEQUATE; ANISOCYTOSIS 1+; LARGE PLATELETS 1+; POLYCHROMASIA 1+
[2017-07-02 08:27] VITALS: BP 95/58
[2017-07-02] MEDS: POTASSIUM CHLORIDE 10 MEQ TABLET.ER PO SCH (09:10)
[2017-07-02] MEDS: FUROSEMIDE 40 MG TABLET PO SCH (09:10)
[2017-07-02] MEDS: metroNIDAZOLE 500 MG TABLET PO SCH ×3 (09:10→20:37)
[2017-07-02] MEDS: THIAMINE 100MG TABLET PO SCH (09:11)
[2017-07-02] MEDS: AMIODARONE 200 MG TABLET PO SCH ×2 (09:11→20:37)
[2017-07-02 13:32] VITALS: BP_SYST 103; BP_SYST 108; BP_SYST 99; BP_DIAS 64; BP_DIAS 66; BP_DIAS 69
[2017-07-02] MEDS ORDERED: PHENOL THROAT SPRAY BOTTLE MM PRN (16:30)
[2017-07-02] MEDS: RIVAROXABAN 15 MG TABLET PO SCH (17:40)
[2017-07-02] MEDS: ACETAMINOPHEN 325 MG TABLET PO PRN (17:40)
[2017-07-02 19:46] VITALS: BP 100/62
[2017-07-02] MEDS ORDERED: QUETIAPINE 25MG TABLET ONE ×2 (20:35→20:40)
[2017-07-02] MEDS: TRAZODONE 100MG TABLET PO SCH (20:37)
[2017-07-02] MEDS: QUETIAPINE 100MG TABLET PO SCH (20:38)
[2017-07-02 21:35] LABS: TROPONIN I 0.022 ng/mL (0.000-0.045)
[2017-07-02] MEDS: PIPERONYL BUTOXIDE/PYRETHRINS SHAMPOO TP SCH (22:07)
[2017-07-03 00:03] VITALS: BP 98/61
[2017-07-03 05:24] LABS: MEAN CORPUSCULAR HEMOGLOBIN 30.4 pg (27.0-34.8); MEAN CORPUSCULAR HGB CONC 33.1 g/dL (32.4-35.8); MEAN CORPUSCULAR VOLUME 91.7 fL (80-100); MEAN PLATELET VOLUME 7.6 fL (7.4-10.4); PLATELET COUNT 217 x10^3/uL (130-400); RED BLOOD COUNT 3.61 x10^6/uL (3.82-5.3); RED CELL DISTRIBUTION WIDTH 16.6 % (9.6-15.2)
[2017-07-03 05:35] LABS: TROPONIN I 0.022 ng/mL (0.000-0.045)
[2017-07-03 05:36] LABS: ANION GAP 9 mmol/L (5-15); CALCIUM 9.3 mg/dL (8.5-10.1); CHLORIDE 101 mmol/L (98-107); CREATININE 0.95 mg/dL (0.55-1.02)
[2017-07-03 06:35] LABS: MD YES
[2017-07-03 06:38] LABS: <PLATELET ESTIMATE> ADEQUATE; ANISOCYTOSIS 1+; BAND#(MANUAL) 0.04 x10^3/uL; BANDS%(MANUAL) 1 % (0-7); EOS% (MANUAL) 8 % (1-7); LYMPH#(MANUAL) 2.09 x10^3/uL (1-3.4); LYMPHS% (MANUAL) 55 % (22-44); MONOS#(MANUAL) 0.65 x10^3/uL (0.3-2.7); MONOS% (MANUAL) 17 % (2-9); POLYCHROMASIA 1+; SEG#(MANUAL) 0.72 x10^3/uL (1.8-6.8); SEGS% (MANUAL) 19 % (42-75)
[2017-07-03 06:39] LABS: <PLT MORPHOLOGY> NORMAL PLT MORPH
[2017-07-03 08:40] VITALS: BP 88/57
[2017-07-03] MEDS: metroNIDAZOLE 500 MG TABLET PO SCH ×3 (08:43→20:50)
[2017-07-03] MEDS: POTASSIUM CHLORIDE 10 MEQ TABLET.ER PO SCH (08:43)
[2017-07-03] MEDS: AMIODARONE 200 MG TABLET PO SCH ×2 (08:43→20:50)
[2017-07-03] MEDS: THIAMINE 100MG TABLET PO SCH (08:44)
[2017-07-03 09:00] VITALS: BP 93/64
[2017-07-03] MEDS: FUROSEMIDE 40 MG TABLET PO SCH ×2 (09:00→13:32)
[2017-07-03] MEDS ORDERED: REGADENOSON 0.4 MG/5 ML SYRINGE ONE (10:43)
[2017-07-03 13:23] VITALS: BP 112/72
[2017-07-03] MEDS: ACETAMINOPHEN 325 MG TABLET PO PRN (13:28)
[2017-07-03] MEDS: RIVAROXABAN 15 MG TABLET PO SCH (17:12)
[2017-07-03] MEDS: GUAIFENESIN 100 MG/5 ML, 10ML UDC PO PRN (18:08)
[2017-07-03 18:35] VITALS: BP 112/65
[2017-07-03] MEDS ORDERED: QUETIAPINE 25MG TABLET ONE (20:46)
[2017-07-03] MEDS: TRAZODONE 100MG TABLET PO SCH (20:49)
[2017-07-03] MEDS: QUETIAPINE 100MG TABLET PO SCH (20:50)
[2017-07-04 00:46] VITALS: BP 95/57
[2017-07-04 05:36] LABS: ANION GAP 7 mmol/L (5-15); CALCIUM 9.4 mg/dL (8.5-10.1); CHLORIDE 101 mmol/L (98-107)
[2017-07-04 05:37] LABS: CREATININE 1.13 mg/dL (0.55-1.02)
[2017-07-04 05:39] LABS: MEAN CORPUSCULAR HEMOGLOBIN 30.3 pg (27.0-34.8); MEAN CORPUSCULAR VOLUME 91.6 fL (80-100); MEAN PLATELET VOLUME 7.4 fL (7.4-10.4); PLATELET COUNT 295 x10^3/uL (130-400); RED BLOOD COUNT 3.67 x10^6/uL (3.82-5.3); RED CELL DISTRIBUTION WIDTH 16.7 % (9.6-15.2)
[2017-07-04 05:58] LABS: MD YES
[2017-07-04 06:01] LABS: BAND#(MANUAL) 0.04 x10^3/uL; BANDS%(MANUAL) 1 % (0-7); EOS#(MANUAL) 0.11 x10^3/uL (0.0-0.4); EOS% (MANUAL) 3 % (1-7); LYMPH#(MANUAL) 2.18 x10^3/uL (1-3.4); LYMPHS% (MANUAL) 59 % (22-44); MONOS#(MANUAL) 0.56 x10^3/uL (0.3-2.7); MONOS% (MANUAL) 15 % (2-9)
[2017-07-04 06:02] LABS: REACTIVE LYMPHS # (MANUAL) 0.04 x10^3/uL (0-0); REACTIVE LYMPHS % (MANUAL) 1 % (0-0); SEG#(MANUAL) 0.78 x10^3/uL (1.8-6.8); SEGS% (MANUAL) 21 % (42-75)
[2017-07-04 06:03] LABS: <PLATELET ESTIMATE> ADEQUATE; <PLT MORPHOLOGY> NORMAL PLT MORPH; ANISOCYTOSIS 1+; POLYCHROMASIA 1+
[2017-07-04 07:20] VITALS: BP 93/58
[2017-07-04] MEDS: THIAMINE 100MG TABLET PO SCH (09:21)
[2017-07-04] MEDS: FUROSEMIDE 40 MG TABLET PO SCH (09:21)
[2017-07-04] MEDS: POTASSIUM CHLORIDE 10 MEQ TABLET.ER PO SCH (09:21)
[2017-07-04] MEDS: metroNIDAZOLE 500 MG TABLET PO SCH ×2 (09:21→16:34)
[2017-07-04] MEDS: AMIODARONE 200 MG TABLET PO SCH (09:22)
[2017-07-04 13:00] VITALS: BP 96/60
[2017-07-04] MEDS: GUAIFENESIN 100 MG/5 ML, 10ML UDC PO PRN (13:51)
[2017-07-04] MEDS: RIVAROXABAN 15 MG TABLET PO SCH (16:34)
[2017-07-04] MEDS ORDERED: FURO40TA6 PO (17:02)
[2017-07-04] MEDS ORDERED: THIA100T6 PO (17:02)
[2017-07-04] MEDS ORDERED: METR500T PO (17:02)
[2017-07-04] MEDS ORDERED: POTA10TA5 PO (17:02)
[2017-07-04] MEDS ORDERED: AMIO200T42 PO (17:02)
[2017-07-04] MEDS ORDERED: RIVA15TA PO (17:02)
[2017-07-04] MEDS ORDERED: AMIODARONE 200 MG TABLET PO SCH (21:00)
== END 2017-07-04 20:08 | disposition home or self-care (01) | DRG 208 ==
LOC: ED 17:24 → SUATTDRO 19:58 → EDIP 20:09 → 5SO 21:40 → CCU 06-26 10:47 → 5SO 06-29 16:27 → UNDODISIN 07-04 19:05
PROVIDERS: ADMIT Hospitalist; ATTEND Hospitalist
PROC: 5A1945Z Respiratory Ventilation, 24-96 Consecutive Hours (ICD-10-PCS; principal; 2017-06-27)
PROC: 0BH17EZ Insertion of Endotracheal Airway into Trachea, Via Natural or Artificial Opening (ICD-10-PCS; 2017-06-27)
DX: J96.01 Acute respiratory failure with hypoxia (principal); Z99.11 Dependence on respirator [ventilator] status; G93.40 Encephalopathy, unspecified; E87.2 Acidosis; D68.69 Other thrombophilia; I24.8 Other forms of acute ischemic heart disease; I48.1 Persistent atrial fibrillation; N39.0 Urinary tract infection, site not specified; J98.11 Atelectasis; D69.6 Thrombocytopenia, unspecified; I27.20 Pulmonary hypertension, unspecified; B85.2 Pediculosis, unspecified; Z91.410 Personal history of adult physical and sexual abuse; Z86.74 Personal history of sudden cardiac arrest; F31.9 Bipolar disorder, unspecified
CPT/HCPCS: 36415; 36600; 70450; 71045; 71275; 78452; 80048; 80053; 80307; 81001; 82803; 82962; 83605; 83735; 84100; 84132; 84443; 84478; 84484; 85025; 85520; 86022; 87040; 87070; 87081; 87086; 87205; 93005; 93017; 93306; 94002; 94003; 94150; 94640; 96361; 96374; 96375; J0696; J1644; J2250; J2704; J2785; J3010; J7060; J7620; Q0162; Q9967; A9502; C9898; J0282; J0330; J1160; J1815; J1940; J2060; J3475; J7030; J7040; J7050; J7120; Q0163; S0028

== ENCOUNTER 2017-07-28 14:36 | Emergency (ER) | payer MEDICARE, MEDICAID ==
[~2017-07-28] VITALS: Ht 167.6 cm; Wt 70.0 kg
[~2017-07-28 14:36] MED LIST changes: +AMIO200T42 PO; +FURO40TA6 PO; +HYDR10TA4 PO; +LAMO25TA52 PO; +METR500T PO; +MIRT7.5T8 PO; +POTA10TA5 PO; +RIVA15TA PO; +THIA100T6 PO; +TRAZ100T15 PO
[2017-07-28 15:19] LABS: BASOPHILS % (AUTO) 0 % (0-1); EOSINOPHILS % (AUTO) 0 % (1-7); LYMPHOCYTES # (AUTO) 0.78 x10^3/uL (1-3.4); LYMPHOCYTES % (AUTO) 19 % (22-44); MD NO; MEAN CORPUSCULAR HEMOGLOBIN 30.2 pg (27.0-34.8); MEAN CORPUSCULAR HGB CONC 33.2 g/dL (32.4-35.8); MONOCYTES # (AUTO) 0.15 x10^3/uL (0.2-0.8); MONOCYTES % (AUTO) 4 % (2-9); NEUTROPHILS # (AUTO) 3.26 x10^3/uL (1.8-6.8); NEUTROPHILS % (AUTO) 78 % (42-75); PLATELET COUNT 222 x10^3/uL (130-400); RED BLOOD COUNT 4.31 x10^6/uL (3.82-5.3)
[2017-07-28 15:31] LABS: ALBUMIN 3.5 g/dL (3.4-5.0); ANION GAP 21 mmol/L (5-15); CALCIUM 7.9 mg/dL (8.5-10.1); CHLORIDE 101 mmol/L (98-107)
[2017-07-28 15:36] LABS: ALANINE AMINOTRANSFERASE 52 U/L (12-78); ALKALINE PHOSPHATASE 101 U/L (45-117); BILIRUBIN,TOTAL 0.9 mg/dL (0.2-1.0); CREATININE 0.73 mg/dL (0.55-1.02); TOTAL PROTEIN 7.6 g/dL (6.4-8.2); TROPONIN I < 0.015 ng/mL (0.000-0.045)
[2017-07-28 15:37] LABS: INTERNATIONAL NORMALIZED RATIO 1.04 (0.93-1.1); PROTHROMBIN TIME 10.7 Seconds (9.6-11.5)
[2017-07-28 17:02] VITALS: BP 114/53
[2017-07-28 18:18] LABS: TROPONIN I < 0.015 ng/mL (0.000-0.045)
[2017-07-28] MEDS ORDERED: ONDANSETRON ODT 4 MG PO ONE (18:30)
[2017-07-28] MEDS ORDERED: ONDANSETRON ODT 4 MG ONE (18:39)
== END 2017-07-28 18:59 | disposition home or self-care (01) ==
LOC: ED 15:11
DX: F10.220 Alcohol dependence with intoxication, uncomplicated (principal); R07.9 Chest pain, unspecified; I10 Essential (primary) hypertension; I48.91 Unspecified atrial fibrillation; I25.2 Old myocardial infarction; Y90.9 Presence of alcohol in blood, level not specified
CPT/HCPCS: 36415; 71045; 80053; 83880; 84484; 85025; 85610; 85730; 93005; 99285; Q0162

== ENCOUNTER 2017-08-25 01:07 | Emergency (ER) | payer MEDICARE, MEDICAID ==
[~2017-08-25] VITALS: Ht 165.1 cm; Wt 75.0 kg
[2017-08-25 02:30] VITALS: BP 98/54
== END 2017-08-25 03:29 | disposition home or self-care (01) ==
LOC: ED 03:24
DX: S00.03XA Contusion of scalp, initial encounter (principal); I11.9 Hypertensive heart disease without heart failure; I25.2 Old myocardial infarction; F31.9 Bipolar disorder, unspecified; I48.91 Unspecified atrial fibrillation; M19.90 Unspecified osteoarthritis, unspecified site; F10.20 Alcohol dependence, uncomplicated; Z90.49 Acquired absence of other specified parts of digestive tract; W18.39XA Other fall on same level, initial encounter; Y93.89 Activity, other specified; Y92.488 Other paved roadways as the place of occurrence of the external cause; Y99.8 Other external cause status
CPT/HCPCS: 70450; 82962; 99284

== ENCOUNTER 2017-09-15 20:49 | Emergency (ER) | payer MEDICARE, MEDICAID ==
[~2017-09-15] VITALS: Ht 172.7 cm; Wt 71.0 kg
[2017-09-15 21:48] LABS: BASOPHILS # (AUTO) 0.03 x10^3/uL (0-0.1); BASOPHILS % (AUTO) 1 % (0-1); EOSINOPHILS % (AUTO) 3 % (1-7); LYMPHOCYTES # (AUTO) 1.68 x10^3/uL (1-3.4); LYMPHOCYTES % (AUTO) 44 % (22-44); MD NO; MEAN CORPUSCULAR HEMOGLOBIN 29.6 pg (27.0-34.8); MEAN CORPUSCULAR HGB CONC 32.9 g/dL (32.4-35.8); MEAN PLATELET VOLUME 6.5 fL (7.4-10.4); MONOCYTES # (AUTO) 0.44 x10^3/uL (0.2-0.8); MONOCYTES % (AUTO) 12 % (2-9); NEUTROPHILS # (AUTO) 1.57 x10^3/uL (1.8-6.8); NEUTROPHILS % (AUTO) 41 % (42-75); PLATELET COUNT 197 x10^3/uL (130-400); RED BLOOD COUNT 4.85 x10^6/uL (3.82-5.3)
[2017-09-15 21:57] LABS: ALANINE AMINOTRANSFERASE 28 U/L (12-78); ALBUMIN 3.3 g/dL (3.4-5.0); ANION GAP 12 mmol/L (5-15); CALCIUM 8.2 mg/dL (8.5-10.1); CHLORIDE 109 mmol/L (98-107)
[2017-09-15 22:02] LABS: ALKALINE PHOSPHATASE 168 U/L (45-117); BILIRUBIN,TOTAL 0.7 mg/dL (0.2-1.0); CREATININE 0.82 mg/dL (0.55-1.02); TOTAL PROTEIN 7.8 g/dL (6.4-8.2)
[2017-09-16 01:14] VITALS: BP 123/74
== END 2017-09-16 01:14 | disposition home or self-care (01) ==
LOC: ED 21:14
DX: F10.120 Alcohol abuse with intoxication, uncomplicated (principal); F19.10 Other psychoactive substance abuse, uncomplicated; Z72.9 Problem related to lifestyle, unspecified; F31.9 Bipolar disorder, unspecified; I25.2 Old myocardial infarction; I10 Essential (primary) hypertension
CPT/HCPCS: 36415; 71045; 80053; 80307; 85025; 99285

== ENCOUNTER 2017-12-20 18:19 | Inpatient (IN) | payer MEDICARE, MEDICAID ==
[~2017-12-20] VITALS: Ht 170.2 cm; Wt 73.1 kg
[~2017-12-20 18:19] MED LIST changes: -THIA100T6 PO; +THIA100T67 PO; +TRAZ-136 PO; +TRAZ-137 PO; -TRAZ100T15 PO; -TRAZ50TA18 PO
[2017-12-20] MEDS ORDERED: SODIUM CHLORIDE 0.9% 1,000 ML IV ONE (19:21)
[2017-12-20] MEDS ORDERED: ASPIRIN 81 MG TABLET CHEW ONE (19:29)
[2017-12-20] MEDS ORDERED: SODIUM CHLORIDE 0.9% 1,000ML IVBOLUS ONE (19:30)
[2017-12-20] MEDS ORDERED: ASPIRIN 81 MG TABLET CHEW PO ONE (19:30)
[2017-12-20] MEDS ORDERED: SODIUM CHLORIDE FLUSH 10ML SYR IVF ONE (19:30)
[2017-12-20 19:37] LABS: BASOPHILS # (AUTO) 0.06 x10^3/uL (0-0.1); BASOPHILS % (AUTO) 1 % (0-1); EOSINOPHILS # (AUTO) 0.02 x10^3/uL (0-0.4); EOSINOPHILS % (AUTO) 0 % (1-7); LYMPHOCYTES % (AUTO) 19 % (22-44); MD MORPH REVIEW ONLY; MEAN CORPUSCULAR HEMOGLOBIN 31.1 pg (27.0-34.8); MEAN CORPUSCULAR HGB CONC 33.3 g/dL (32.4-35.8); MEAN CORPUSCULAR VOLUME 93.6 fL (80-100); MEAN PLATELET VOLUME 6.2 fL (7.4-10.4); MONOCYTES # (AUTO) 0.79 x10^3/uL (0.2-0.8); MONOCYTES % (AUTO) 9 % (2-9); NEUTROPHILS # (AUTO) 6.35 x10^3/uL (1.8-6.8); NEUTROPHILS % (AUTO) 71 % (42-75); PLATELET COUNT 234 x10^3/uL (130-400); RED CELL DISTRIBUTION WIDTH 19.7 % (9.6-15.2)
[2017-12-20 19:47] LABS: ALBUMIN 3.3 g/dL (3.4-5.0); ANION GAP 14 mmol/L (5-15); CALCIUM 7.8 mg/dL (8.5-10.1); CHLORIDE 107 mmol/L (98-107)
[2017-12-20 19:49] LABS: INTERNATIONAL NORMALIZED RATIO 1.1 (0.93-1.1); PROTHROMBIN TIME 11.4 Seconds (9.6-11.5)
[2017-12-20 19:53] LABS: ALANINE AMINOTRANSFERASE 60 U/L (12-78); ALKALINE PHOSPHATASE 197 U/L (45-117); BILIRUBIN,TOTAL 0.4 mg/dL (0.2-1.0); CREATININE 1.01 mg/dL (0.55-1.02); TROPONIN I < 0.015 ng/mL (0.000-0.045)
[2017-12-20 19:59] LABS: <PLATELET ESTIMATE> ADEQUATE; <PLT MORPHOLOGY> NORMAL PLT MORPH; ANISOCYTOSIS 1+
[2017-12-20] MEDS ORDERED: SODIUM CHLORIDE FLUSH 10ML SYR IVF PRN (21:00)
[2017-12-20] MEDS ORDERED: CEFTRIAXONE 1,000 MG in SODIUM CHLORIDE 0.9% 50 ML IVPB ONE (21:00)
[2017-12-20] MEDS ORDERED: AZITHROMYCIN 500 MG in SODIUM CHLORIDE 0.9% 250 ML IVPB ONE (21:00)
[2017-12-20] MEDS ORDERED: CEFTRIAXONE PMX 1GM/50ML 50 ML ONE (21:09)
[2017-12-20] MEDS ORDERED: BISACODYL 10 MG SUPP PR PRN (21:30)
[2017-12-20] MEDS ORDERED: ACETAMINOPHEN 325 MG TABLET PO PRN (21:30)
[2017-12-20] MEDS ORDERED: ONDANSETRON ODT 4 MG PO PRN (21:30)
[2017-12-20] MEDS: CEFTRIAXONE 1,000 MG in SODIUM CHLORIDE 0.9% 50 ML IV SCH (21:30)
[2017-12-20] MEDS ORDERED: AZITHROMYCIN 500 MG in SODIUM CHLORIDE 0.9% 250 ML IV SCH (21:30)
[2017-12-20] MEDS ORDERED: POLYETHYLENE GLYCOL 17 GM PACKET PO PRN (21:30)
[2017-12-20] MEDS ORDERED: HEPARIN 5,000 UNITS/ML, 1ML ONE (22:35)
[2017-12-20] MEDS: HEPARIN 5,000 UNITS/ML, 1ML SQ SCH (22:38)
[2017-12-20] MEDS ORDERED: POTASSIUM CHLORIDE 20 MEQ, MAGNESIUM SULFATE 2 GM, THIAMINE 100 MG, MVI ADULT 10 ML, FO... IV SCH (23:00)
[2017-12-21 01:16] VITALS: BP 103/64
[2017-12-21] MEDS: HEPARIN 5,000 UNITS/ML, 1ML SQ SCH ×3 (05:12→20:47)
[2017-12-21 05:14] LABS: BASOPHILS # (AUTO) 0.01 x10^3/uL (0-0.1); BASOPHILS % (AUTO) 0 % (0-1); EOSINOPHILS # (AUTO) 0.04 x10^3/uL (0-0.4); EOSINOPHILS % (AUTO) 1 % (1-7); LYMPHOCYTES # (AUTO) 1.04 x10^3/uL (1-3.4); LYMPHOCYTES % (AUTO) 18 % (22-44); MD NO; MEAN CORPUSCULAR HEMOGLOBIN 30.6 pg (27.0-34.8); MEAN CORPUSCULAR HGB CONC 33.2 g/dL (32.4-35.8); MEAN CORPUSCULAR VOLUME 92.4 fL (80-100); MEAN PLATELET VOLUME 6.6 fL (7.4-10.4); MONOCYTES # (AUTO) 0.53 x10^3/uL (0.2-0.8); MONOCYTES % (AUTO) 9 % (2-9); NEUTROPHILS # (AUTO) 4.11 x10^3/uL (1.8-6.8); NEUTROPHILS % (AUTO) 72 % (42-75); PLATELET COUNT 172 x10^3/uL (130-400); RED BLOOD COUNT 3.78 x10^6/uL (3.82-5.3); RED CELL DISTRIBUTION WIDTH 19.5 % (9.6-15.2)
[2017-12-21 05:22] LABS: CHLORIDE 111 mmol/L (98-107)
[2017-12-21 05:56] LABS: ALANINE AMINOTRANSFERASE 48 U/L (12-78); ALBUMIN 2.8 g/dL (3.4-5.0); ALKALINE PHOSPHATASE 169 U/L (45-117); ANION GAP 13 mmol/L (5-15); BILIRUBIN,TOTAL 0.4 mg/dL (0.2-1.0); CALCIUM 7.4 mg/dL (8.5-10.1); CREATININE 0.73 mg/dL (0.55-1.02); TOTAL PROTEIN 6.7 g/dL (6.4-8.2); TROPONIN I < 0.015 ng/mL (0.000-0.045)
[2017-12-21 07:28] VITALS: BP 131/70
[2017-12-21] MEDS ORDERED: TRAZ-137 PO (07:35)
[2017-12-21] MEDS ORDERED: QUET100T4 PO (07:35)
[2017-12-21] MEDS: SENNA/DOCUSATE TABLET PO SCH (07:41)
[2017-12-21] MEDS ORDERED: LORazepam 2 MG/ML, 1ML IVPush PRN (11:00)
[2017-12-21 11:28] LABS: TROPONIN I < 0.015 ng/mL (0.000-0.045)
[2017-12-21] MEDS: DOXYCYCLINE 100 MG in DEXTROSE 5% 250 ML IV SCH ×2 (12:10→23:25)
[2017-12-21 14:30] VITALS: BP 137/77
[2017-12-21] MEDS: BACLOFEN 10 MG TABLET PO SCH ×2 (14:48→20:47)
[2017-12-21 19:50] VITALS: BP 136/73
[2017-12-21] MEDS: CEFTRIAXONE 1,000 MG in SODIUM CHLORIDE 0.9% 50 ML IV SCH (20:47)
[2017-12-21] MEDS: GUAIFENESIN ER 600 MG TABLET PO SCH (20:47)
[2017-12-22 03:40] VITALS: BP 150/75
[2017-12-22 05:05] LABS: BASOPHILS # (AUTO) 0.03 x10^3/uL (0-0.1); BASOPHILS % (AUTO) 1 % (0-1); EOSINOPHILS # (AUTO) 0.03 x10^3/uL (0-0.4); EOSINOPHILS % (AUTO) 1 % (1-7); LYMPHOCYTES # (AUTO) 0.93 x10^3/uL (1-3.4); LYMPHOCYTES % (AUTO) 18 % (22-44); MD NO; MEAN CORPUSCULAR HEMOGLOBIN 30.9 pg (27.0-34.8); MEAN CORPUSCULAR HGB CONC 33.7 g/dL (32.4-35.8); MEAN CORPUSCULAR VOLUME 91.8 fL (80-100); MEAN PLATELET VOLUME 7.1 fL (7.4-10.4); MONOCYTES # (AUTO) 0.55 x10^3/uL (0.2-0.8); MONOCYTES % (AUTO) 11 % (2-9); NEUTROPHILS # (AUTO) 3.65 x10^3/uL (1.8-6.8); NEUTROPHILS % (AUTO) 70 % (42-75); PLATELET COUNT 145 x10^3/uL (130-400); RED BLOOD COUNT 3.97 x10^6/uL (3.82-5.3); RED CELL DISTRIBUTION WIDTH 19.6 % (9.6-15.2)
[2017-12-22 05:14] LABS: ALANINE AMINOTRANSFERASE 35 U/L (12-78); ALBUMIN 2.6 g/dL (3.4-5.0); ANION GAP 8 mmol/L (5-15); CALCIUM 8.1 mg/dL (8.5-10.1); CHLORIDE 108 mmol/L (98-107); CREATININE 0.78 mg/dL (0.55-1.02)
[2017-12-22 05:17] LABS: ALKALINE PHOSPHATASE 166 U/L (45-117); BILIRUBIN,TOTAL 0.4 mg/dL (0.2-1.0); TOTAL PROTEIN 6.6 g/dL (6.4-8.2)
[2017-12-22] MEDS: HEPARIN 5,000 UNITS/ML, 1ML SQ SCH ×3 (05:30→20:58)
[2017-12-22 07:02] VITALS: BP 110/64
[2017-12-22] MEDS: FOLIC ACID 1 MG TABLET PO SCH (09:50)
[2017-12-22] MEDS: SENNA/DOCUSATE TABLET PO SCH ×2 (09:50→09:51)
[2017-12-22] MEDS: BACLOFEN 10 MG TABLET PO SCH ×3 (09:50→20:58)
[2017-12-22] MEDS: THIAMINE 100MG TABLET PO SCH (09:50)
[2017-12-22] MEDS: GUAIFENESIN ER 600 MG TABLET PO SCH ×2 (09:50→20:58)
[2017-12-22] MEDS: MULTIVITAMIN 1 TABLET PO SCH (09:50)
[2017-12-22] MEDS: DOXYCYCLINE 100 MG in DEXTROSE 5% 250 ML IV SCH ×2 (12:20→23:10)
[2017-12-22] MEDS ORDERED: POTASSIUM CHLORIDE 20 MEQ TAB.ER.PRT PO ONE (12:30)
[2017-12-22 14:59] VITALS: BP_SYST 144; BP_SYST 166; BP_DIAS 73; BP_DIAS 82
[2017-12-22 19:06] VITALS: BP 162/81
[2017-12-22] MEDS: CEFTRIAXONE 1,000 MG in SODIUM CHLORIDE 0.9% 50 ML IV SCH (20:58)
[2017-12-22] MEDS ORDERED: DIPHENHYDRAMINE 50 MG CAPSULE PO PRN (21:00)
[2017-12-22 21:13] LABS: MICROSCOPIC NOT IND
[2017-12-22 21:15] LABS: CULTURE INDICATED? NO
[2017-12-22 23:46] VITALS: BP 162/89
[2017-12-23] MEDS: HEPARIN 5,000 UNITS/ML, 1ML SQ SCH ×3 (05:29→21:01)
[2017-12-23 06:04] LABS: ANION GAP 10 mmol/L (5-15); CHLORIDE 107 mmol/L (98-107)
[2017-12-23 06:05] LABS: CREATININE 0.67 mg/dL (0.55-1.02)
[2017-12-23 06:23] LABS: BASOPHILS # (AUTO) 0.02 x10^3/uL (0-0.1); BASOPHILS % (AUTO) 0 % (0-1); EOSINOPHILS # (AUTO) 0.08 x10^3/uL (0-0.4); EOSINOPHILS % (AUTO) 2 % (1-7); LYMPHOCYTES # (AUTO) 1.33 x10^3/uL (1-3.4); LYMPHOCYTES % (AUTO) 26 % (22-44); MD NO; MEAN CORPUSCULAR HEMOGLOBIN 31.1 pg (27.0-34.8); MEAN CORPUSCULAR HGB CONC 33.7 g/dL (32.4-35.8); MEAN CORPUSCULAR VOLUME 92.3 fL (80-100); MEAN PLATELET VOLUME 7.7 fL (7.4-10.4); MONOCYTES # (AUTO) 0.59 x10^3/uL (0.2-0.8); MONOCYTES % (AUTO) 12 % (2-9); NEUTROPHILS # (AUTO) 3.08 x10^3/uL (1.8-6.8); NEUTROPHILS % (AUTO) 60 % (42-75); PLATELET COUNT 128 x10^3/uL (130-400); RED BLOOD COUNT 4.13 x10^6/uL (3.82-5.3)
[2017-12-23 07:47] VITALS: BP 121/71
[2017-12-23] MEDS: SENNA/DOCUSATE TABLET PO SCH (07:59)
[2017-12-23] MEDS: BACLOFEN 10 MG TABLET PO SCH ×3 (07:59→21:01)
[2017-12-23] MEDS: GUAIFENESIN ER 600 MG TABLET PO SCH ×2 (07:59→21:01)
[2017-12-23] MEDS: FOLIC ACID 1 MG TABLET PO SCH (07:59)
[2017-12-23] MEDS: THIAMINE 100MG TABLET PO SCH (07:59)
[2017-12-23] MEDS: MULTIVITAMIN 1 TABLET PO SCH (07:59)
[2017-12-23] MEDS: DOXYCYCLINE 100 MG in DEXTROSE 5% 250 ML IV SCH ×2 (11:00→23:08)
[2017-12-23 13:46] VITALS: BP 132/73
[2017-12-23 20:39] VITALS: BP 144/85
[2017-12-23] MEDS ORDERED: TRAZODONE 50MG TABLET PO PRN (21:00)
[2017-12-23] MEDS: CEFTRIAXONE 1,000 MG in SODIUM CHLORIDE 0.9% 50 ML IV SCH (21:01)
[2017-12-24 03:14] VITALS: BP 115/67
[2017-12-24] MEDS: HEPARIN 5,000 UNITS/ML, 1ML SQ SCH ×2 (05:25→13:30)
[2017-12-24 07:42] VITALS: BP 120/73
[2017-12-24] MEDS: SENNA/DOCUSATE TABLET PO SCH (09:00)
[2017-12-24] MEDS: FOLIC ACID 1 MG TABLET PO SCH (09:50)
[2017-12-24] MEDS: THIAMINE 100MG TABLET PO SCH (09:51)
[2017-12-24] MEDS: MULTIVITAMIN 1 TABLET PO SCH (09:51)
[2017-12-24] MEDS: GUAIFENESIN ER 600 MG TABLET PO SCH (09:51)
[2017-12-24] MEDS: BACLOFEN 10 MG TABLET PO SCH (09:51)
[2017-12-24] MEDS: DOXYCYCLINE 100 MG in DEXTROSE 5% 250 ML IV SCH (11:14)
[2017-12-24] MEDS ORDERED: THIA100T67 PO (11:59)
[2017-12-24] MEDS ORDERED: FOLI-17 PO (11:59)
[2017-12-24] MEDS ORDERED: MULT1TAB60 PO (11:59)
[2017-12-24] MEDS ORDERED: CEFD300C37 PO (12:02)
[2017-12-24] MEDS ORDERED: DOXY100T PO (12:02)
== END 2017-12-24 15:05 | disposition home or self-care (01) | DRG 871 ==
LOC: ED 20:55 → EDIP 21:00 → ED 21:13 → 4EST 22:24
PROVIDERS: ADMIT Hospitalist; ATTEND Hospitalist
DX: A41.9 Sepsis, unspecified organism (principal); J18.9 Pneumonia, unspecified organism; E44.1 Mild protein-calorie malnutrition; I42.1 Obstructive hypertrophic cardiomyopathy; E87.2 Acidosis; F10.229 Alcohol dependence with intoxication, unspecified; F31.9 Bipolar disorder, unspecified; I48.91 Unspecified atrial fibrillation; Z66 Do not resuscitate; G90.8 Other disorders of autonomic nervous system; G47.00 Insomnia, unspecified; I25.2 Old myocardial infarction; Z82.49 Family history of ischemic heart disease and other diseases of the circulatory system; Z68.25 Body mass index [BMI] 25.0-25.9, adult; Z79.899 Other long term (current) drug therapy; Z90.49 Acquired absence of other specified parts of digestive tract; Z90.89 Acquired absence of other organs; Z80.8 Family history of malignant neoplasm of other organs or systems
CPT/HCPCS: 36415; 71045; 80048; 80053; 80307; 81003; 83605; 83690; 83880; 84145; 84484; 85025; 85610; 85730; 87040; 87070; 87205; 93005; 93306; 93880; 96361; 96365; 96375; 99285; G0378; J0456; J0696; J1644; J3411; J3475; J3480; J7042; J7060; J7030; J7050

== ENCOUNTER 2018-01-09 14:11 | Inpatient (IN) | payer MEDICARE, MEDICAID ==
[~2018-01-09] VITALS: Ht 167.6 cm; Wt 75.6 kg
[~2018-01-09 14:11] MED LIST changes: +CEFD300C37 PO; +DOXY100T PO; +FOLI-17 PO; +MULT1TAB60 PO
[2018-01-09] MEDS ORDERED: NALOXONE 1 MG/ML, 2ML ONE (14:15)
[2018-01-09] MEDS ORDERED: SODIUM CHLORIDE 0.9% 1,000ML IVBOLUS ONE ×2 (14:30→17:30)
[2018-01-09] MEDS ORDERED: SODIUM CHLORIDE FLUSH 10ML SYR IVF ONE (14:30)
[2018-01-09 14:51] LABS: BASOPHILS # (AUTO) 0.03 x10^3/uL (0-0.1); BASOPHILS % (AUTO) 1 % (0-1); EOSINOPHILS # (AUTO) 0.11 x10^3/uL (0-0.4); EOSINOPHILS % (AUTO) 3 % (1-7); LYMPHOCYTES # (AUTO) 1.45 x10^3/uL (1-3.4); LYMPHOCYTES % (AUTO) 43 % (22-44); MD NO; MEAN CORPUSCULAR HEMOGLOBIN 30.1 pg (27.0-34.8); MEAN CORPUSCULAR HGB CONC 32.4 g/dL (32.4-35.8); MEAN CORPUSCULAR VOLUME 92.9 fL (80-100); MEAN PLATELET VOLUME 6.3 fL (7.4-10.4); MONOCYTES # (AUTO) 0.26 x10^3/uL (0.2-0.8); MONOCYTES % (AUTO) 8 % (2-9); NEUTROPHILS # (AUTO) 1.55 x10^3/uL (1.8-6.8); NEUTROPHILS % (AUTO) 46 % (42-75); PLATELET COUNT 394 x10^3/uL (130-400); RED BLOOD COUNT 3.89 x10^6/uL (3.82-5.3); RED CELL DISTRIBUTION WIDTH 18.2 % (9.6-15.2)
[2018-01-09 15:05] LABS: ALANINE AMINOTRANSFERASE 40 U/L (12-78); ALBUMIN 2.8 g/dL (3.4-5.0); ANION GAP 13 mmol/L (5-15); CALCIUM 7.7 mg/dL (8.5-10.1); CHLORIDE 107 mmol/L (98-107); CREATININE 0.73 mg/dL (0.55-1.02)
[2018-01-09 15:07] LABS: ACETAMINOPHEN 56 mcg/mL (10-30); ALKALINE PHOSPHATASE 156 U/L (45-117); BILIRUBIN,TOTAL 0.4 mg/dL (0.2-1.0); TOTAL PROTEIN 6.7 g/dL (6.4-8.2)
[2018-01-09 15:10] LABS: SALICYLATE LEVEL < 1.7 mg/dL (2.8-20.0)
[2018-01-09 15:27] LABS: CULTURE INDICATED? YES; MICROSCOPIC INDICATED
[2018-01-09 15:36] LABS: AMPHETAMINE SCREEN, URINE Negative (Negative); BARBITURATE SCREEN, URINE Negative (Negative); BENZODIAZEPINE SCREEN, URINE Negative (Negative); CANNABINOID SCREEN, URINE Negative (Negative); COCAINE SCREEN, URINE Negative (Negative); METHADONE SCREEN, URINE Negative (Negative); OPIATE SCREEN, URINE Positive (Negative)
[2018-01-09 15:54] LABS: TROPONIN I < 0.015 ng/mL (0.000-0.045)
[2018-01-09] MEDS ORDERED: LORazepam 1MG TABLET PO PRN (17:30)
[2018-01-09] MEDS ORDERED: ONDANSETRON 2MG/ML, 2ML IVPush PRN (17:30)
[2018-01-09] MEDS ORDERED: ENOXAPARIN 40 MG/0.4 ML SQ SCH (17:30)
[2018-01-09] MEDS ORDERED: KETOROLAC 30 MG/1 ML IV PRN (18:00)
[2018-01-09] MEDS ORDERED: MAGNESIUM SULFATE PMX 2GM/50ML 50 ML IV ONE (18:00)
[2018-01-09] MEDS ORDERED: PROCHLORPERAZINE 5 MG TABLET PO PRN (18:00)
[2018-01-09 18:45] VITALS: BP 107/71
[2018-01-09] MEDS: QUETIAPINE 100MG TABLET PO SCH (20:50)
[2018-01-09] MEDS: BACLOFEN 10 MG TABLET PO SCH (20:50)
[2018-01-09 21:00] VITALS: BP 106/69
[2018-01-09] MEDS: NS + 20MEQ KCL 1,000 ML IV SCH (21:24)
[2018-01-09 23:20] VITALS: BP 102/65
[2018-01-10 02:39] VITALS: BP 106/69
[2018-01-10] MEDS: BACLOFEN 10 MG TABLET PO SCH ×2 (04:30→13:09)
[2018-01-10 04:43] LABS: BASOPHILS # (AUTO) 0.07 x10^3/uL (0-0.1); BASOPHILS % (AUTO) 2 % (0-1); EOSINOPHILS # (AUTO) 0.06 x10^3/uL (0-0.4); EOSINOPHILS % (AUTO) 2 % (1-7); LYMPHOCYTES # (AUTO) 1.77 x10^3/uL (1-3.4); LYMPHOCYTES % (AUTO) 44 % (22-44); MD NO; MEAN CORPUSCULAR HEMOGLOBIN 30.4 pg (27.0-34.8); MEAN CORPUSCULAR HGB CONC 32.6 g/dL (32.4-35.8); MEAN CORPUSCULAR VOLUME 93.3 fL (80-100); MEAN PLATELET VOLUME 6.6 fL (7.4-10.4); MONOCYTES # (AUTO) 0.46 x10^3/uL (0.2-0.8); MONOCYTES % (AUTO) 12 % (2-9); NEUTROPHILS # (AUTO) 1.65 x10^3/uL (1.8-6.8); NEUTROPHILS % (AUTO) 41 % (42-75); PLATELET COUNT 359 x10^3/uL (130-400); RED CELL DISTRIBUTION WIDTH 17.8 % (9.6-15.2)
[2018-01-10 04:52] LABS: ALANINE AMINOTRANSFERASE 46 U/L (12-78); ALBUMIN 2.7 g/dL (3.4-5.0); ANION GAP 8 mmol/L (5-15); CALCIUM 7.1 mg/dL (8.5-10.1); CHLORIDE 112 mmol/L (98-107); CREATININE 0.79 mg/dL (0.55-1.02)
[2018-01-10 04:54] LABS: ALKALINE PHOSPHATASE 167 U/L (45-117); BILIRUBIN,TOTAL 0.3 mg/dL (0.2-1.0); TOTAL PROTEIN 6.5 g/dL (6.4-8.2)
[2018-01-10 07:30] VITALS: BP 102/65
[2018-01-10] MEDS ORDERED: POTASSIUM CHLORIDE 20 MEQ TAB.ER.PRT PO SCH (08:00)
[2018-01-10] MEDS ORDERED: THIAMINE 100MG TABLET PO SCH (09:00)
[2018-01-10] MEDS ORDERED: MULTIVITAMIN 1 TABLET PO SCH (09:00)
[2018-01-10] MEDS ORDERED: FOLIC ACID 1 MG TABLET PO SCH (09:00)
[2018-01-10] MEDS: QUETIAPINE 100MG TABLET PO SCH (10:06)
[2018-01-10] MEDS: NS + 20MEQ KCL 1,000 ML IV SCH (10:22)
[2018-01-10] MEDS ORDERED: FLUCONAZOLE 200 MG TABLET PO ONE (12:30)
[2018-01-10 12:40] VITALS: BP 100/66
[2018-01-10] MEDS ORDERED: FLUC100T PO (14:15)
[2018-01-11] MEDS ORDERED: FLUCONAZOLE 100 MG TABLET PO SCH (12:30)
== END 2018-01-10 14:30 | DRG 917 ==
LOC: ED 15:50 → EDIP 17:22 → 4WST 18:16
PROVIDERS: ADMIT Internal Medicine; ATTEND Internal Medicine
DX: T40.2X2A Poisoning by other opioids, intentional self-harm, initial encounter (principal); G92 Toxic encephalopathy; J96.01 Acute respiratory failure with hypoxia; E44.0 Moderate protein-calorie malnutrition; N39.0 Urinary tract infection, site not specified; F10.229 Alcohol dependence with intoxication, unspecified; E87.6 Hypokalemia; I48.0 Paroxysmal atrial fibrillation; F31.9 Bipolar disorder, unspecified; Z66 Do not resuscitate; I10 Essential (primary) hypertension; G40.909 Epilepsy, unspecified, not intractable, without status epilepticus; Z60.2 Problems related to living alone; Y90.8 Blood alcohol level of 240 mg/100 ml or more; G47.00 Insomnia, unspecified; Z90.89 Acquired absence of other organs; Z90.49 Acquired absence of other specified parts of digestive tract; Z82.49 Family history of ischemic heart disease and other diseases of the circulatory system; Z87.01 Personal history of pneumonia (recurrent); I25.2 Old myocardial infarction; Z80.9 Family history of malignant neoplasm, unspecified; Z68.26 Body mass index [BMI] 26.0-26.9, adult; Y92.89 Other specified places as the place of occurrence of the external cause
CPT/HCPCS: 36415; 80053; 80307; 80329; 81001; 82140; 84484; 85025; 87086; 87106; 93005; 96360; 99285; G0378; J1650; J3480; G0480; J3475; J7030

== ENCOUNTER 2018-01-10 13:29 | Inpatient (IN) | payer MEDICARE, MEDICAID ==
[~2018-01-10] VITALS: Ht 167.6 cm; Wt 75.4 kg
[2018-01-10] MEDS ORDERED: FLUC100T PO (14:15)
[2018-01-10 14:40] VITALS: BP 91/56
[2018-01-10] MEDS ORDERED: ACETAMINOPHEN 325 MG TABLET PO PRN (15:00)
[2018-01-10] MEDS ORDERED: DOCUSATE 100 MG CAPSULE PO PRN (15:00)
[2018-01-10] MEDS ORDERED: BISACODYL 10 MG SUPP PR PRN (15:00)
[2018-01-10] MEDS ORDERED: POLYETHYLENE GLYCOL 17 GM PACKET PO PRN (15:00)
[2018-01-10 15:05] VITALS: BP 91/59
[2018-01-10] MEDS ORDERED: NALOXONE 0.4 MG/ML, 1ML IVPush ONE (15:30)
[2018-01-10] MEDS ORDERED: SODIUM CHLORIDE 0.9%, 500ML IVBOLUS ONE (15:30)
[2018-01-10] MEDS ORDERED: PLEASE ENTER HEIGHT AND WEIGHT MC SCH (15:30)
[2018-01-10 15:42] VITALS: BP 152/73
[2018-01-10 15:55] LABS: BASOPHILS # (AUTO) 0.03 x10^3/uL (0-0.1); BASOPHILS % (AUTO) 1 % (0-1); EOSINOPHILS # (AUTO) 0.06 x10^3/uL (0-0.4); EOSINOPHILS % (AUTO) 1 % (1-7); LYMPHOCYTES # (AUTO) 1.33 x10^3/uL (1-3.4); LYMPHOCYTES % (AUTO) 24 % (22-44); MD NO; MEAN CORPUSCULAR HEMOGLOBIN 30.6 pg (27.0-34.8); MEAN CORPUSCULAR HGB CONC 32.4 g/dL (32.4-35.8); MEAN CORPUSCULAR VOLUME 94.4 fL (80-100); MEAN PLATELET VOLUME 6.7 fL (7.4-10.4); MONOCYTES # (AUTO) 0.67 x10^3/uL (0.2-0.8); MONOCYTES % (AUTO) 12 % (2-9); NEUTROPHILS % (AUTO) 62 % (42-75); PLATELET COUNT 208 x10^3/uL (130-400); RED BLOOD COUNT 4.04 x10^6/uL (3.82-5.3); RED CELL DISTRIBUTION WIDTH 17.6 % (9.6-15.2)
[2018-01-10 16:01] LABS: ALANINE AMINOTRANSFERASE 449 U/L (12-78); ALBUMIN 2.9 g/dL (3.4-5.0); ANION GAP 5 mmol/L (5-15); CALCIUM 7.9 mg/dL (8.5-10.1); CHLORIDE 111 mmol/L (98-107); CREATININE 1.02 mg/dL (0.55-1.02)
[2018-01-10 16:04] LABS: ALKALINE PHOSPHATASE 235 U/L (45-117); BILIRUBIN,TOTAL 1.6 mg/dL (0.2-1.0); TOTAL PROTEIN 6.7 g/dL (6.4-8.2)
[2018-01-10 17:03] VITALS: BP 91/56
[2018-01-10 17:55] VITALS: BP 137/93
[2018-01-10 19:46] VITALS: BP 117/76
[2018-01-10] MEDS: SODIUM CHLORIDE FLUSH 10ML SYR IVF SCH (20:23)
[2018-01-11] VITALS (8 sets, daily range): BP systolic 98–171; BP diastolic 50–81
[2018-01-11 06:38] LABS: HCT (SEDRATE) 35.2 % (34.6-47.8)
[2018-01-11 06:51] LABS: CHOLESTEROL, TOTAL 85 mg/dL (140-239); TRIGLYCERIDES 52 mg/dL (50-200); VLDL CHOLESTEROL 10 mg/dL (0-25)
[2018-01-11 07:16] LABS: CHOL/HDL RATIO 1.5; FREE T4 (FREE THYROXINE) 1.29 ng/dL (0.76-1.46); HDL CHOL % 66 % (28-40); HDL CHOLESTEROL (DIRECT) 56 mg/dL (40-60); LDL CHOLESTEROL,CALCULATED 19 mg/dL (54-169); LDL/HDL RATIO 0.3 (0.5-3.0); THYROID STIMULATING HORMONE 0.927 mIU/L (0.358-3.740)
[2018-01-11 07:23] LABS: ACETAMINOPHEN < 2 mcg/mL (10-30)
[2018-01-11 08:53] LABS: CULTURE INDICATED? YES; MICROSCOPIC INDICATED
[2018-01-11] MEDS: SODIUM CHLORIDE FLUSH 10ML SYR IVF SCH ×2 (09:43→22:25)
[2018-01-11] MEDS ORDERED: LORazepam 1MG TABLET PO PRN (14:00)
[2018-01-11 15:30] LABS: ALBUMIN 2.9 g/dL (3.4-5.0); ANION GAP 12 mmol/L (5-15); CALCIUM 8.6 mg/dL (8.5-10.1); CHLORIDE 104 mmol/L (98-107); CREATININE 0.92 mg/dL (0.55-1.02)
[2018-01-11 15:45] LABS: ALANINE AMINOTRANSFERASE 2936 U/L (12-78); ALKALINE PHOSPHATASE 255 U/L (45-117); BILIRUBIN,TOTAL 4.4 mg/dL (0.2-1.0); TOTAL PROTEIN 6.4 g/dL (6.4-8.2)
[2018-01-11] MEDS ORDERED: ACETYLCYSTEINE IV ONE ×3 (17:00→22:00)
[2018-01-11] MEDS ORDERED: SODIUM CHLORIDE 0.9% 1,000ML IVBOLUS ONE (17:00)
[2018-01-11] MEDS ORDERED: DEXTROSE 5% IV ONE ×3 (17:00→22:00)
[2018-01-11] MEDS: ACETYLCYSTEINE IV ONE ×2 (18:00→20:27)
[2018-01-11] MEDS: DEXTROSE 5% IV ONE ×2 (18:00→20:27)
[2018-01-11] MEDS: SODIUM CHLORIDE 0.9% 1,000 ML IV SCH (18:32)
[2018-01-11] MEDS ORDERED: ACETYLCYSTEINE IV SCH (22:15)
[2018-01-11] MEDS ORDERED: DEXTROSE 5% IV SCH (22:15)
[2018-01-11] MEDS ORDERED: ONDANSETRON ODT 4 MG PO PRN (23:00)
[2018-01-11] MEDS ORDERED: LORazepam 2 MG/ML, 1ML IVPush PRN (23:00)
[2018-01-12] MEDS: SODIUM CHLORIDE 0.9% 1,000 ML IV SCH ×2 (02:30→12:11)
[2018-01-12 02:51] VITALS: BP 154/76
[2018-01-12 05:59] LABS: BASOPHILS # (AUTO) 0.03 x10^3/uL (0-0.1); BASOPHILS % (AUTO) 1 % (0-1); EOSINOPHILS % (AUTO) 0 % (1-7); LYMPHOCYTES # (AUTO) 0.52 x10^3/uL (1-3.4); LYMPHOCYTES % (AUTO) 7 % (22-44); MD NO; MEAN CORPUSCULAR HGB CONC 33.6 g/dL (32.4-35.8); MEAN CORPUSCULAR VOLUME 92.2 fL (80-100); MONOCYTES # (AUTO) 0.33 x10^3/uL (0.2-0.8); MONOCYTES % (AUTO) 4 % (2-9); NEUTROPHILS # (AUTO) 6.76 x10^3/uL (1.8-6.8); NEUTROPHILS % (AUTO) 88 % (42-75); PLATELET COUNT 148 x10^3/uL (130-400); RED BLOOD COUNT 3.95 x10^6/uL (3.82-5.3); RED CELL DISTRIBUTION WIDTH 17.3 % (9.6-15.2)
[2018-01-12 06:09] LABS: ALBUMIN 2.6 g/dL (3.4-5.0); ANION GAP 13 mmol/L (5-15); CALCIUM 8.7 mg/dL (8.5-10.1); CHLORIDE 99 mmol/L (98-107); CREATININE 0.62 mg/dL (0.55-1.02)
[2018-01-12 06:19] LABS: ALKALINE PHOSPHATASE 241 U/L (45-117); BILIRUBIN,TOTAL 5.2 mg/dL (0.2-1.0); TOTAL PROTEIN 6.2 g/dL (6.4-8.2)
[2018-01-12 06:32] LABS: ALANINE AMINOTRANSFERASE 4270 U/L (12-78)
[2018-01-12 07:51] VITALS: BP 146/85
[2018-01-12] MEDS: SODIUM CHLORIDE FLUSH 10ML SYR IVF SCH (09:00)
[2018-01-12 12:24] VITALS: BP 155/85
[2018-01-12 15:23] VITALS: BP 133/83
== END 2018-01-12 15:37 | DRG 917 ==
LOC: 3E 14:28 → 4NOR 01-12 15:15
PROVIDERS: ADMIT Counselor Mental Health; ATTEND Counselor Mental Health
DX: T39.1X2A Poisoning by 4-Aminophenol derivatives, intentional self-harm, initial encounter (principal); G92 Toxic encephalopathy; F31.30 Bipolar disorder, current episode depressed, mild or moderate severity, unspecified; N39.0 Urinary tract infection, site not specified; F10.229 Alcohol dependence with intoxication, unspecified; I48.0 Paroxysmal atrial fibrillation; K75.9 Inflammatory liver disease, unspecified; Z66 Do not resuscitate; Z82.49 Family history of ischemic heart disease and other diseases of the circulatory system; Z91.5 Personal history of self-harm; I25.2 Old myocardial infarction; Z90.49 Acquired absence of other specified parts of digestive tract
CPT/HCPCS: 36415; 70450; 76700; 80053; 80061; 80307; 81001; 82140; 82607; 84439; 84443; 85025; 85651; 86592; 87086; J0132; J2310; J7060; J7070; J2060; J7030; J7040

== ENCOUNTER 2018-01-12 15:09 | Inpatient (IN) | payer MEDICARE, MEDICAID ==
[~2018-01-12] VITALS: Ht 167.6 cm; Wt 73.1 kg
[~2018-01-12 15:09] MED LIST changes: +FLUC100T PO
[2018-01-12 15:23] VITALS: BP 133/83
[2018-01-12] MEDS ORDERED: hydrALAzine 20 MG/ML, 1ML IVPush PRN (15:30)
[2018-01-12] MEDS ORDERED: BISACODYL 10 MG SUPP PR PRN (15:30)
[2018-01-12] MEDS ORDERED: DOCUSATE 100 MG CAPSULE PO PRN (15:30)
[2018-01-12] MEDS ORDERED: ONDANSETRON 2MG/ML, 2ML IVPush PRN (15:30)
[2018-01-12] MEDS ORDERED: POLYETHYLENE GLYCOL 17 GM PACKET PO PRN (15:30)
[2018-01-12] MEDS ORDERED: PLEASE ENTER HEIGHT AND WEIGHT MC SCH (16:00)
[2018-01-12] MEDS ORDERED: NALOXONE 0.4 MG/ML, 1ML IVPush ONE (18:00)
[2018-01-12] MEDS: ACETYLCYSTEINE IV SCH (18:30)
[2018-01-12] MEDS: DEXTROSE 5% IV SCH (18:30)
[2018-01-12] MEDS: KETOROLAC 30 MG/1 ML IV PRN (19:23)
[2018-01-12 20:11] VITALS: BP 147/84
[2018-01-12] MEDS: SODIUM CHLORIDE 0.9% 1,000 ML IV SCH (20:14)
[2018-01-12] MEDS: LACTULOSE 20 GM/30 ML UDC PO SCH (20:14)
[2018-01-12] MEDS: ENOXAPARIN 40 MG/0.4 ML SQ SCH (20:14)
[2018-01-13 00:50] VITALS: BP 141/78
[2018-01-13 04:49] LABS: BASOPHILS # (AUTO) 0.03 x10^3/uL (0-0.1); BASOPHILS % (AUTO) 1 % (0-1); EOSINOPHILS # (AUTO) 0.13 x10^3/uL (0-0.4); EOSINOPHILS % (AUTO) 2 % (1-7); LYMPHOCYTES # (AUTO) 0.87 x10^3/uL (1-3.4); LYMPHOCYTES % (AUTO) 16 % (22-44); MD NO; MEAN CORPUSCULAR HEMOGLOBIN 31.2 pg (27.0-34.8); MEAN CORPUSCULAR HGB CONC 33.8 g/dL (32.4-35.8); MEAN CORPUSCULAR VOLUME 92.1 fL (80-100); MEAN PLATELET VOLUME 6.9 fL (7.4-10.4); MONOCYTES # (AUTO) 0.43 x10^3/uL (0.2-0.8); MONOCYTES % (AUTO) 8 % (2-9); NEUTROPHILS # (AUTO) 4.16 x10^3/uL (1.8-6.8); NEUTROPHILS % (AUTO) 74 % (42-75); PLATELET COUNT 153 x10^3/uL (130-400); RED BLOOD COUNT 3.86 x10^6/uL (3.82-5.3); RED CELL DISTRIBUTION WIDTH 17.9 % (9.6-15.2)
[2018-01-13 04:55] LABS: ALBUMIN 2.3 g/dL (3.4-5.0); ANION GAP 10 mmol/L (5-15); CALCIUM 8.2 mg/dL (8.5-10.1); CHLORIDE 103 mmol/L (98-107)
[2018-01-13 05:14] LABS: ALANINE AMINOTRANSFERASE 2630 U/L (12-78); ALKALINE PHOSPHATASE 222 U/L (45-117); BILIRUBIN,TOTAL 5.9 mg/dL (0.2-1.0); TOTAL PROTEIN 5.3 g/dL (6.4-8.2)
[2018-01-13 07:23] VITALS: BP 163/76
[2018-01-13] MEDS ORDERED: ONDANSETRON ODT 4 MG PO PRN (07:30)
[2018-01-13] MEDS: LACTULOSE 20 GM/30 ML UDC PO SCH ×3 (08:03→21:51)
[2018-01-13] MEDS: POTASSIUM CHLORIDE 20 MEQ TAB.ER.PRT PO SCH ×2 (08:04→16:39)
[2018-01-13] MEDS: SODIUM CHLORIDE 0.9% 1,000 ML IV SCH ×2 (09:29→23:40)
[2018-01-13] MEDS: KETOROLAC 30 MG/1 ML IV PRN ×2 (09:40→16:41)
[2018-01-13] MEDS: ACETYLCYSTEINE IV SCH (12:56)
[2018-01-13] MEDS: DEXTROSE 5% IV SCH (12:56)
[2018-01-13 13:16] VITALS: BP 167/78
[2018-01-13 20:00] VITALS: BP 144/76
[2018-01-13] MEDS: ENOXAPARIN 40 MG/0.4 ML SQ SCH (21:51)
[2018-01-13] MEDS: LORazepam 1MG TABLET PO PRN (21:51)
[2018-01-14] MEDS: KETOROLAC 30 MG/1 ML IV PRN ×4 (00:49→18:04)
[2018-01-14 01:33] VITALS: BP 152/84
[2018-01-14] MEDS: ACETYLCYSTEINE IV SCH ×2 (05:40→22:06)
[2018-01-14] MEDS: DEXTROSE 5% IV SCH ×2 (05:40→22:06)
[2018-01-14 07:08] LABS: ALBUMIN 2.4 g/dL (3.4-5.0); ANION GAP 7 mmol/L (5-15); CHLORIDE 106 mmol/L (98-107)
[2018-01-14 07:16] LABS: ALANINE AMINOTRANSFERASE 1776 U/L (12-78); ALKALINE PHOSPHATASE 197 U/L (45-117); BILIRUBIN,TOTAL 6.3 mg/dL (0.2-1.0); TOTAL PROTEIN 5.5 g/dL (6.4-8.2)
[2018-01-14 07:17] VITALS: BP 159/79
[2018-01-14] MEDS: POTASSIUM CHLORIDE 20 MEQ TAB.ER.PRT PO SCH ×2 (09:15→16:18)
[2018-01-14] MEDS: LACTULOSE 20 GM/30 ML UDC PO SCH ×3 (09:15→21:09)
[2018-01-14] MEDS: SODIUM CHLORIDE 0.9% 1,000 ML IV SCH (10:09)
[2018-01-14 13:00] VITALS: BP 146/81
[2018-01-14 19:00] VITALS: BP 131/78
[2018-01-14] MEDS: ENOXAPARIN 40 MG/0.4 ML SQ SCH (21:09)
[2018-01-15] MEDS: KETOROLAC 30 MG/1 ML IV PRN ×4 (00:08→19:29)
[2018-01-15 01:41] VITALS: BP 145/75
[2018-01-15] MEDS: SODIUM CHLORIDE 0.9% 1,000 ML IV SCH ×2 (02:20→15:40)
[2018-01-15] MEDS: LORazepam 1MG TABLET PO PRN ×2 (02:25→20:27)
[2018-01-15 06:11] LABS: ALBUMIN 2.2 g/dL (3.4-5.0); ANION GAP 9 mmol/L (5-15); CALCIUM 8.2 mg/dL (8.5-10.1); CHLORIDE 106 mmol/L (98-107); CREATININE 0.56 mg/dL (0.55-1.02)
[2018-01-15 06:18] LABS: ALANINE AMINOTRANSFERASE 1107 U/L (12-78); ALKALINE PHOSPHATASE 190 U/L (45-117); BILIRUBIN,TOTAL 4.7 mg/dL (0.2-1.0); TOTAL PROTEIN 5.4 g/dL (6.4-8.2)
[2018-01-15 07:58] VITALS: BP_SYST 103; BP_SYST 119; BP_DIAS 67; BP_DIAS 68
[2018-01-15] MEDS: LACTULOSE 20 GM/30 ML UDC PO SCH ×3 (08:49→20:27)
[2018-01-15 14:07] VITALS: BP 124/73
[2018-01-15] MEDS: DEXTROSE 5% IV SCH (16:19)
[2018-01-15] MEDS: ACETYLCYSTEINE IV SCH (16:19)
[2018-01-15 19:47] VITALS: BP 126/70
[2018-01-15] MEDS: ENOXAPARIN 40 MG/0.4 ML SQ SCH (20:27)
[2018-01-16] MEDS: LORazepam 1MG TABLET PO PRN ×2 (00:50→21:35)
[2018-01-16 02:29] VITALS: BP 120/71
[2018-01-16] MEDS: KETOROLAC 30 MG/1 ML IV PRN ×4 (02:45→21:35)
[2018-01-16] MEDS: SODIUM CHLORIDE 0.9% 1,000 ML IV SCH ×2 (04:51→18:20)
[2018-01-16 07:56] LABS: ALANINE AMINOTRANSFERASE 750 U/L (12-78); ALBUMIN 2.1 g/dL (3.4-5.0); ANION GAP 10 mmol/L (5-15); CALCIUM 8.3 mg/dL (8.5-10.1); CHLORIDE 106 mmol/L (98-107); CREATININE 0.52 mg/dL (0.55-1.02)
[2018-01-16 07:58] LABS: ALKALINE PHOSPHATASE 173 U/L (45-117); BILIRUBIN,TOTAL 3.7 mg/dL (0.2-1.0); TOTAL PROTEIN 5.4 g/dL (6.4-8.2)
[2018-01-16] MEDS: LACTULOSE 20 GM/30 ML UDC PO SCH ×3 (08:50→21:35)
[2018-01-16 08:54] VITALS: BP 123/79
[2018-01-16] MEDS ORDERED: LACT20SO13 PO (09:52)
[2018-01-16 14:40] VITALS: BP 120/74
[2018-01-16 18:49] VITALS: BP 140/78
[2018-01-16] MEDS: ENOXAPARIN 40 MG/0.4 ML SQ SCH (21:35)
[2018-01-17 00:39] VITALS: BP 134/66
[2018-01-17] MEDS: LORazepam 1MG TABLET PO PRN (02:45)
[2018-01-17] MEDS: KETOROLAC 30 MG/1 ML IV PRN ×2 (03:52→10:10)
[2018-01-17 06:03] LABS: ALANINE AMINOTRANSFERASE 647 U/L (12-78); ALBUMIN 2.5 g/dL (3.4-5.0); ANION GAP 4 mmol/L (5-15); CALCIUM 8.5 mg/dL (8.5-10.1); CHLORIDE 109 mmol/L (98-107); CREATININE 0.62 mg/dL (0.55-1.02)
[2018-01-17 06:06] LABS: ALKALINE PHOSPHATASE 176 U/L (45-117); BILIRUBIN,TOTAL 3.5 mg/dL (0.2-1.0); TOTAL PROTEIN 5.9 g/dL (6.4-8.2)
[2018-01-17] MEDS: SODIUM CHLORIDE 0.9% 1,000 ML IV SCH (07:40)
[2018-01-17 07:58] VITALS: BP 139/66
[2018-01-17] MEDS: LACTULOSE 20 GM/30 ML UDC PO SCH ×2 (09:19→15:46)
[2018-01-17 13:28] VITALS: BP 134/78
== END 2018-01-17 16:00 | DRG 917 ==
LOC: 4NOR 15:43
PROVIDERS: ADMIT Internal Medicine; ATTEND Internal Medicine
PROC: 05HY33Z Insertion of Infusion Device into Upper Vein, Percutaneous Approach (ICD-10-PCS; principal; 2018-01-12)
PROC: B54MZZA Ultrasonography of Right Upper Extremity Veins, Guidance (ICD-10-PCS; 2018-01-12)
PROC: B51M1ZA Fluoroscopy of Right Upper Extremity Veins using Low Osmolar Contrast, Guidance (ICD-10-PCS; 2018-01-12)
DX: T39.1X2A Poisoning by 4-Aminophenol derivatives, intentional self-harm, initial encounter (principal); G93.41 Metabolic encephalopathy; B37.49 Other urogenital candidiasis; E44.0 Moderate protein-calorie malnutrition; T40.2X2A Poisoning by other opioids, intentional self-harm, initial encounter; I95.9 Hypotension, unspecified; G47.00 Insomnia, unspecified; Z60.2 Problems related to living alone; F10.10 Alcohol abuse, uncomplicated; Y90.9 Presence of alcohol in blood, level not specified; I48.0 Paroxysmal atrial fibrillation; R74.0 Nonspecific elevation of levels of transaminase and lactic acid dehydrogenase [LDH]; Z66 Do not resuscitate; F31.9 Bipolar disorder, unspecified; I25.2 Old myocardial infarction; Z82.49 Family history of ischemic heart disease and other diseases of the circulatory system; Z90.49 Acquired absence of other specified parts of digestive tract; Z90.89 Acquired absence of other organs; Z68.26 Body mass index [BMI] 26.0-26.9, adult; Y92.89 Other specified places as the place of occurrence of the external cause
CPT/HCPCS: 36415; 36569; 76937; 77001; 80053; 84460; 85025; G0378; J0132; J1650; J1885; J2310; J2405; J7070; C1751

== ENCOUNTER 2018-01-17 12:40 | Inpatient (IN) | payer MEDICARE, MEDICAID ==
[~2018-01-17] VITALS: Ht 170.2 cm; Wt 57.2 kg
[~2018-01-17 12:40] MED LIST changes: +LACT20SO13 PO
[2018-01-17 16:21] VITALS: BP 126/70
[2018-01-17] MEDS ORDERED: PLEASE ENTER HEIGHT AND WEIGHT MC SCH (16:30)
[2018-01-17 16:31] VITALS: BP 126/70
[2018-01-17] MEDS ORDERED: POLYETHYLENE GLYCOL 17 GM PACKET PO PRN (17:00)
[2018-01-17] MEDS ORDERED: BISACODYL 10 MG SUPP PR PRN (17:00)
[2018-01-17] MEDS: LORazepam 0.5MG TABLET PO PRN ×2 (18:08→22:11)
[2018-01-17 19:26] VITALS: BP 139/72
[2018-01-17] MEDS: ACAMPROSATE 333 MG TABLET.DR PO SCH (20:40)
[2018-01-17] MEDS: QUETIAPINE 25MG TABLET PO SCH (20:41)
[2018-01-18 06:21] LABS: MEAN CORPUSCULAR HEMOGLOBIN 31.7 pg (27.0-34.8); MEAN CORPUSCULAR HGB CONC 33.2 g/dL (32.4-35.8); MEAN CORPUSCULAR VOLUME 95.3 fL (80-100); MEAN PLATELET VOLUME 8.4 fL (7.4-10.4); PLATELET COUNT 107 x10^3/uL (130-400); RED CELL DISTRIBUTION WIDTH 19.6 % (9.6-15.2)
[2018-01-18 06:23] LABS: BASOPHILS # (AUTO) 0.03 x10^3/uL (0-0.1); BASOPHILS % (AUTO) 1 % (0-1); EOSINOPHILS # (AUTO) 0.15 x10^3/uL (0-0.4); EOSINOPHILS % (AUTO) 3 % (1-7); LYMPHOCYTES # (AUTO) 1.39 x10^3/uL (1-3.4); LYMPHOCYTES % (AUTO) 33 % (22-44); MD SCAN; MONOCYTES # (AUTO) 0.78 x10^3/uL (0.2-0.8); MONOCYTES % (AUTO) 18 % (2-9); NEUTROPHILS # (AUTO) 1.92 x10^3/uL (1.8-6.8); NEUTROPHILS % (AUTO) 45 % (42-75)
[2018-01-18 08:00] VITALS: BP 111/63
[2018-01-18] MEDS: QUETIAPINE 25MG TABLET PO SCH ×2 (08:33→20:57)
[2018-01-18] MEDS: ACAMPROSATE 333 MG TABLET.DR PO SCH ×3 (08:33→20:57)
[2018-01-18] MEDS: SENNA/DOCUSATE TABLET PO SCH (08:34)
[2018-01-18] MEDS: LORazepam 0.5MG TABLET PO PRN ×3 (11:32→22:08)
[2018-01-18 19:33] VITALS: BP 129/79
[2018-01-18] MEDS: MELATONIN 5 MG TABLET PO SCH (20:57)
[2018-01-19] MEDS: LORazepam 0.5MG TABLET PO PRN ×4 (05:52→21:09)
[2018-01-19 07:30] VITALS: BP 104/63
[2018-01-19] MEDS: ACAMPROSATE 333 MG TABLET.DR PO SCH ×3 (09:19→21:09)
[2018-01-19] MEDS: SENNA/DOCUSATE TABLET PO SCH (09:20)
[2018-01-19] MEDS: QUETIAPINE 25MG TABLET PO SCH ×2 (09:20→21:10)
[2018-01-19 20:00] VITALS: BP 111/70
[2018-01-19] MEDS: MELATONIN 5 MG TABLET PO SCH (21:10)
[2018-01-20 07:52] VITALS: BP 105/64
[2018-01-20] MEDS: LORazepam 0.5MG TABLET PO PRN ×4 (08:13→21:03)
[2018-01-20] MEDS: ACAMPROSATE 333 MG TABLET.DR PO SCH ×3 (08:15→21:03)
[2018-01-20] MEDS: SENNA/DOCUSATE TABLET PO SCH (08:15)
[2018-01-20] MEDS: QUETIAPINE 25MG TABLET PO SCH ×2 (08:16→21:02)
[2018-01-20 19:47] VITALS: BP 138/66
[2018-01-20] MEDS: IBUPROFEN 200 MG TABLET PO PRN (19:53)
[2018-01-20] MEDS: MELATONIN 5 MG TABLET PO SCH (21:03)
[2018-01-21 07:57] VITALS: BP 94/58
[2018-01-21] MEDS: SENNA/DOCUSATE TABLET PO SCH (08:21)
[2018-01-21] MEDS: QUETIAPINE 25MG TABLET PO SCH ×2 (08:22→20:32)
[2018-01-21] MEDS: ACAMPROSATE 333 MG TABLET.DR PO SCH ×3 (08:22→20:32)
[2018-01-21] MEDS: LORazepam 0.5MG TABLET PO PRN ×3 (08:27→20:32)
[2018-01-21 20:00] VITALS: BP 96/63
[2018-01-21] MEDS: IBUPROFEN 200 MG TABLET PO PRN (20:32)
[2018-01-21] MEDS: MELATONIN 5 MG TABLET PO SCH (20:32)
[2018-01-22 08:04] VITALS: BP 121/76
[2018-01-22] MEDS: QUETIAPINE 25MG TABLET PO SCH ×2 (08:41→20:51)
[2018-01-22] MEDS: ACAMPROSATE 333 MG TABLET.DR PO SCH ×3 (08:42→20:53)
[2018-01-22] MEDS: SENNA/DOCUSATE TABLET PO SCH (08:44)
[2018-01-22] MEDS: LORazepam 0.5MG TABLET PO PRN ×3 (08:48→21:00)
[2018-01-22 19:41] VITALS: BP 145/73
[2018-01-22] MEDS: MELATONIN 5 MG TABLET PO SCH (20:51)
[2018-01-23 07:58] VITALS: BP 118/65
[2018-01-23] MEDS: LORazepam 0.5MG TABLET PO PRN ×4 (08:36→22:01)
[2018-01-23] MEDS: ACAMPROSATE 333 MG TABLET.DR PO SCH ×3 (08:36→20:33)
[2018-01-23] MEDS: QUETIAPINE 25MG TABLET PO SCH ×2 (08:36→20:34)
[2018-01-23] MEDS: SENNA/DOCUSATE TABLET PO SCH (09:00)
[2018-01-23 19:32] VITALS: BP 99/60
[2018-01-23] MEDS: MELATONIN 5 MG TABLET PO SCH (20:34)
[2018-01-24] MEDS: LORazepam 0.5MG TABLET PO PRN ×4 (04:09→20:04)
[2018-01-24] MEDS: QUETIAPINE 25MG TABLET PO SCH ×2 (08:16→20:04)
[2018-01-24] MEDS: ACAMPROSATE 333 MG TABLET.DR PO SCH ×3 (08:16→20:04)
[2018-01-24 08:20] VITALS: BP 97/62
[2018-01-24] MEDS: SENNA/DOCUSATE TABLET PO SCH (08:30)
[2018-01-24 19:53] VITALS: BP 103/65
[2018-01-24] MEDS: MELATONIN 5 MG TABLET PO SCH (20:04)
[2018-01-25 07:30] VITALS: BP 118/69
[2018-01-25] MEDS: QUETIAPINE 25MG TABLET PO SCH ×2 (08:38→20:35)
[2018-01-25] MEDS: ACAMPROSATE 333 MG TABLET.DR PO SCH ×3 (08:40→20:35)
[2018-01-25] MEDS: LORazepam 0.5MG TABLET PO PRN ×3 (08:45→20:35)
[2018-01-25] MEDS: SENNA/DOCUSATE TABLET PO SCH (09:00)
[2018-01-25 15:13] VITALS: BP 99/64
[2018-01-25 19:50] VITALS: BP 88/51
[2018-01-25] MEDS: MELATONIN 5 MG TABLET PO SCH (20:35)
[2018-01-25] MEDS: IBUPROFEN 200 MG TABLET PO PRN (20:35)
[2018-01-26 07:30] VITALS: BP 112/69
[2018-01-26 08:06] VITALS: BP 114/65
[2018-01-26] MEDS: ACAMPROSATE 333 MG TABLET.DR PO SCH ×3 (08:32→20:29)
[2018-01-26] MEDS: LORazepam 0.5MG TABLET PO PRN ×3 (08:33→20:29)
[2018-01-26] MEDS: QUETIAPINE 25MG TABLET PO SCH ×2 (08:33→20:29)
[2018-01-26] MEDS: SENNA/DOCUSATE TABLET PO SCH (08:33)
[2018-01-26 19:49] VITALS: BP 100/62
[2018-01-26] MEDS: MELATONIN 5 MG TABLET PO SCH (20:29)
[2018-01-27] MEDS: LORazepam 0.5MG TABLET PO PRN ×3 (05:44→20:13)
[2018-01-27 07:54] VITALS: BP 104/63
[2018-01-27] MEDS: SENNA/DOCUSATE TABLET PO SCH (08:27)
[2018-01-27] MEDS: ACAMPROSATE 333 MG TABLET.DR PO SCH ×3 (08:27→20:13)
[2018-01-27] MEDS: QUETIAPINE 25MG TABLET PO SCH ×2 (08:28→20:13)
[2018-01-27 19:44] VITALS: BP 92/56
[2018-01-27] MEDS: MELATONIN 5 MG TABLET PO SCH (20:13)
[2018-01-28 07:30] VITALS: BP 103/68
[2018-01-28] MEDS: LORazepam 0.5MG TABLET PO PRN ×3 (07:54→20:48)
[2018-01-28] MEDS: QUETIAPINE 25MG TABLET PO SCH ×2 (08:43→20:17)
[2018-01-28] MEDS: ACAMPROSATE 333 MG TABLET.DR PO SCH ×3 (08:43→20:18)
[2018-01-28] MEDS: SENNA/DOCUSATE TABLET PO SCH (08:44)
[2018-01-28] MEDS: IBUPROFEN 200 MG TABLET PO PRN (17:06)
[2018-01-28 19:44] VITALS: BP 87/57
[2018-01-28] MEDS: MELATONIN 5 MG TABLET PO SCH (20:18)
[2018-01-29 07:45] VITALS: BP 100/63
[2018-01-29] MEDS: LORazepam 0.5MG TABLET PO PRN ×3 (08:19→20:13)
[2018-01-29] MEDS: QUETIAPINE 25MG TABLET PO SCH ×2 (08:20→20:13)
[2018-01-29] MEDS: ACAMPROSATE 333 MG TABLET.DR PO SCH ×3 (08:20→20:13)
[2018-01-29] MEDS: SENNA/DOCUSATE TABLET PO SCH (08:20)
[2018-01-29 19:17] VITALS: BP 115/70
[2018-01-29] MEDS: MELATONIN 5 MG TABLET PO SCH (20:13)
[2018-01-30 07:28] VITALS: BP 115/76
[2018-01-30] MEDS: LORazepam 0.5MG TABLET PO PRN (07:33)
[2018-01-30] MEDS: SENNA/DOCUSATE TABLET PO SCH (07:51)
[2018-01-30] MEDS: ACAMPROSATE 333 MG TABLET.DR PO SCH (08:08)
[2018-01-30] MEDS: QUETIAPINE 25MG TABLET PO SCH (08:09)
== END 2018-01-30 10:30 | DRG 918 ==
LOC: 3E 16:02
PROVIDERS: ADMIT Counselor Mental Health; ATTEND Counselor Mental Health
DX: T39.1X2A Poisoning by 4-Aminophenol derivatives, intentional self-harm, initial encounter (principal); F31.30 Bipolar disorder, current episode depressed, mild or moderate severity, unspecified; B37.49 Other urogenital candidiasis; E44.0 Moderate protein-calorie malnutrition; Z68.1 Body mass index [BMI] 19.9 or less, adult; F10.20 Alcohol dependence, uncomplicated; I48.0 Paroxysmal atrial fibrillation; G47.00 Insomnia, unspecified; I25.2 Old myocardial infarction; Z91.5 Personal history of self-harm; Z82.49 Family history of ischemic heart disease and other diseases of the circulatory system; Z90.49 Acquired absence of other specified parts of digestive tract; Y92.89 Other specified places as the place of occurrence of the external cause
CPT/HCPCS: 36415; 85025

== ENCOUNTER 2018-02-05 15:43 | Inpatient (IN) | payer MEDICARE, MEDICAID ==
[~2018-02-05] VITALS: Ht 167.6 cm; Wt 78.5 kg
[2018-02-05] MEDS ORDERED: DILTIAZEM 5 MG/ML, 5ML IVPush STA (15:57)
[2018-02-05] MEDS ORDERED: ONDANSETRON ODT 4 MG PO ONE (16:00)
[2018-02-05] MEDS ORDERED: THIAMINE 100MG TABLET PO ONE (16:00)
[2018-02-05] MEDS ORDERED: SODIUM CHLORIDE FLUSH 10ML SYR IVF ONE (16:00)
[2018-02-05] MEDS ORDERED: SODIUM CHLORIDE 0.9% 1,000ML IVBOLUS ONE (16:00)
[2018-02-05] MEDS ORDERED: ASPIRIN 81 MG TABLET CHEW PO ONE (16:00)
[2018-02-05] MEDS ORDERED: ASPIRIN 81 MG TABLET CHEW ONE (16:06)
[2018-02-05] MEDS ORDERED: THIAMINE 100MG TABLET ONE (16:06)
[2018-02-05] MEDS ORDERED: ONDANSETRON ODT 4 MG ONE (16:06)
[2018-02-05] MEDS ORDERED: DILTIAZEM 5 MG/ML, 5ML ONE (16:07)
[2018-02-05 16:25] LABS: BASOPHILS # (AUTO) 0.03 x10^3/uL (0-0.1); BASOPHILS % (AUTO) 0 % (0-1); EOSINOPHILS % (AUTO) 0 % (1-7); LYMPHOCYTES # (AUTO) 0.67 x10^3/uL (1-3.4); LYMPHOCYTES % (AUTO) 8 % (22-44); MD NO; MEAN CORPUSCULAR HEMOGLOBIN 30.2 pg (27.0-34.8); MEAN CORPUSCULAR HGB CONC 32.4 g/dL (32.4-35.8); MEAN CORPUSCULAR VOLUME 93.2 fL (80-100); MEAN PLATELET VOLUME 7.4 fL (7.4-10.4); MONOCYTES # (AUTO) 0.55 x10^3/uL (0.2-0.8); MONOCYTES % (AUTO) 6 % (2-9); NEUTROPHILS % (AUTO) 86 % (42-75); PLATELET COUNT 289 x10^3/uL (130-400); RED BLOOD COUNT 4.02 x10^6/uL (3.82-5.3)
[2018-02-05 16:31] LABS: INTERNATIONAL NORMALIZED RATIO 1.22 (0.93-1.1); PROTHROMBIN TIME 12.6 Seconds (9.6-11.5)
[2018-02-05 16:33] LABS: ALANINE AMINOTRANSFERASE 40 U/L (12-78); ALBUMIN 3.5 g/dL (3.4-5.0); ANION GAP 19 mmol/L (5-15); CALCIUM 8.5 mg/dL (8.5-10.1); CHLORIDE 101 mmol/L (98-107)
[2018-02-05 16:37] LABS: ALKALINE PHOSPHATASE 149 U/L (45-117); BILIRUBIN,TOTAL 1.9 mg/dL (0.2-1.0); CREATININE 0.78 mg/dL (0.55-1.02)
[2018-02-05] MEDS ORDERED: DILTIAZEM 125 MG in DEXTROSE 5% 100 ML IV SCH (16:52)
[2018-02-05] MEDS ORDERED: TRAZ-137 PO (17:18)
[2018-02-05] MEDS ORDERED: FLUO20CA8 PO (17:18)
[2018-02-05] MEDS ORDERED: HYDR25TA11 PO (17:18)
[2018-02-05] MEDS ORDERED: DOCUSATE 100 MG CAPSULE PO PRN (18:00)
[2018-02-05] MEDS ORDERED: DILTIAZEM 125 MG in SODIUM CHLORIDE 0.9% 100 ML IV SCH (18:00)
[2018-02-05] MEDS ORDERED: hydrALAzine 20 MG/ML, 1ML IVPush PRN (18:00)
[2018-02-05] MEDS ORDERED: ONDANSETRON ODT 4 MG PO PRN (18:00)
[2018-02-05] MEDS ORDERED: ENOXAPARIN 60 MG/0.6 ML SQ SCH (18:30)
[2018-02-05 18:32] VITALS: BP 104/60
[2018-02-05] MEDS ORDERED: ENOXAPARIN 60 MG/0.6 ML ONE (18:49)
[2018-02-05 20:00] VITALS: BP 118/65
[2018-02-05] MEDS: TRAZODONE 100MG TABLET PO SCH (20:30)
[2018-02-05] MEDS: ATORVASTATIN 40 MG TABLET PO SCH (20:30)
[2018-02-05] MEDS ORDERED: DILTIAZEM 125 MG in SODIUM CHLORIDE 0.9% 100 ML IV PRN (20:30)
[2018-02-05 22:00] VITALS: BP 93/57
[2018-02-05] MEDS ORDERED: LORazepam 2 MG/ML, 1ML IVPush PRN (22:30)
[2018-02-05] MEDS ORDERED: SODIUM CHLORIDE 0.9%, 500ML IVBOLUS ONE ×2 (22:30)
[2018-02-05] MEDS ORDERED: POTASSIUM CHLORIDE 20 MEQ TAB.ER.PRT PO ONE (23:30)
[2018-02-05] MEDS ORDERED: FUROSEMIDE 20 MG/2 ML IV ONE (23:30)
[2018-02-05] MEDS ORDERED: MORPHINE SULFATE 4 MG/ML, 1ML ONE (23:52)
[2018-02-06] MEDS ORDERED: LORazepam 2 MG/ML, 1ML IV PRN ×5
[2018-02-06] MEDS ORDERED: LORazepam 1MG TABLET PO PRN ×4
[2018-02-06] MEDS ORDERED: LORazepam 0.5MG TABLET PO PRN
[2018-02-06] MEDS ORDERED: MORPHINE SULFATE 4 MG/ML, 1ML IVPush ONE
[2018-02-06 00:19] LABS: TROPONIN I 0.259 ng/mL (0.000-0.045)
[2018-02-06 01:11] VITALS: BP 93/59
[2018-02-06] MEDS ORDERED: GUAIFENESIN/DM 100-10MG, 5ML UDC PO PRN (02:00)
[2018-02-06] MEDS ORDERED: FUROSEMIDE 40 MG/4 ML IV ONE (03:30)
[2018-02-06] MEDS ORDERED: DOXYCYCLINE 100 MG in DEXTROSE 5% 250 ML IV SCH (04:30)
[2018-02-06] MEDS ORDERED: CEFTRIAXONE PMX 2GM/50ML 50 ML IV SCH (04:30)
[2018-02-06] MEDS ORDERED: SODIUM CHLORIDE 0.9% 1,000 ML IV SCH (04:30)
[2018-02-06 04:38] LABS: CALCIUM 7.6 mg/dL (8.5-10.1); CHLORIDE 100 mmol/L (98-107)
[2018-02-06 04:43] LABS: MEAN CORPUSCULAR HEMOGLOBIN 31.5 pg (27.0-34.8); MEAN CORPUSCULAR HGB CONC 33.9 g/dL (32.4-35.8); MEAN PLATELET VOLUME 7.5 fL (7.4-10.4); PLATELET COUNT 247 x10^3/uL (130-400); RED CELL DISTRIBUTION WIDTH 17.9 % (9.6-15.2)
[2018-02-06 04:47] LABS: ANION GAP 9 mmol/L (5-15); BASOPHILS # (AUTO) 0.03 x10^3/uL (0-0.1); BASOPHILS % (AUTO) 0 % (0-1); CHOL/HDL RATIO 2.1; CHOLESTEROL, TOTAL 97 mg/dL (140-239); EOSINOPHILS # (AUTO) 0.04 x10^3/uL (0-0.4); EOSINOPHILS % (AUTO) 1 % (1-7); HDL CHOL % 47 % (28-40); HDL CHOLESTEROL (DIRECT) 46 mg/dL (40-60); LDL CHOLESTEROL,CALCULATED 31 mg/dL (54-169); LDL/HDL RATIO 0.7 (0.5-3.0); LYMPHOCYTES # (AUTO) 1.24 x10^3/uL (1-3.4); LYMPHOCYTES % (AUTO) 15 % (22-44); MD NO; MONOCYTES % (AUTO) 7 % (2-9); NEUTROPHILS # (AUTO) 6.41 x10^3/uL (1.8-6.8); NEUTROPHILS % (AUTO) 77 % (42-75); TRIGLYCERIDES 102 mg/dL (50-200); VLDL CHOLESTEROL 20 mg/dL (0-25)
[2018-02-06] MEDS: PIPERACILLIN/TAZO/PMX 3.375GM 50 ML IV SCH ×3 (07:00→18:23)
[2018-02-06] MEDS ORDERED: methylPREDNISolone SOD SUCC 40 MG/ML IV ONE (08:01)
[2018-02-06] MEDS ORDERED: ALBUTEROL 0.5%, 20ML ONE (08:11)
[2018-02-06] MEDS ORDERED: methylPREDNISolone SOD SUCC 40 MG/ML ONE (08:18)
[2018-02-06] MEDS: POTASSIUM CHLORIDE 20 MEQ, MAGNESIUM SULFATE 1 GM, THIAMINE 200 MG, FOLIC ACID 1 MG, MV... IV SCH (08:27)
[2018-02-06] MEDS ORDERED: ALBUTEROL 0.5%, 20ML NPPBCONT ONE ×2 (08:30)
[2018-02-06] MEDS: MULTIVITAMIN 1 TABLET PO SCH (09:00)
[2018-02-06] MEDS ORDERED: THIAMINE 100MG TABLET PO SCH (09:00)
[2018-02-06] MEDS ORDERED: FOLIC ACID 1 MG TABLET PO SCH (09:00)
[2018-02-06] MEDS: methylPREDNISolone SOD SUCC 40 MG/ML IVPush SCH ×2 (10:00→18:09)
[2018-02-06 10:46] LABS: AMPHETAMINE SCREEN, URINE Positive (Negative); BARBITURATE SCREEN, URINE Negative (Negative); BENZODIAZEPINE SCREEN, URINE Negative (Negative); CANNABINOID SCREEN, URINE Negative (Negative); COCAINE SCREEN, URINE Negative (Negative); METHADONE SCREEN, URINE Negative (Negative); OPIATE SCREEN, URINE Negative (Negative)
[2018-02-06] MEDS: FLUOXETINE HCL 20 MG CAPSULE PO SCH (13:27)
[2018-02-06] MEDS: ASPIRIN 81 MG TABLET CHEW PO/NG SCH (13:32)
[2018-02-06] MEDS ORDERED: FUROSEMIDE 20 MG/2 ML IV ONE ×2 (18:00)
[2018-02-06] MEDS: TRAZODONE 100MG TABLET PO SCH (21:02)
[2018-02-06] MEDS: ATORVASTATIN 40 MG TABLET PO SCH (21:02)
[2018-02-07] MEDS: PIPERACILLIN/TAZO/PMX 3.375GM 50 ML IV SCH ×4 (00:37→18:37)
[2018-02-07] MEDS: methylPREDNISolone SOD SUCC 40 MG/ML IVPush SCH ×3 (01:49→18:14)
[2018-02-07] MEDS ORDERED: SODIUM CHLORIDE 0.9% 500 ML IV ONE (03:03)
[2018-02-07 04:56] LABS: ALBUMIN 2.5 g/dL (3.4-5.0); CALCIUM 8.6 mg/dL (8.5-10.1); CHLORIDE 110 mmol/L (98-107)
[2018-02-07 05:01] LABS: ALANINE AMINOTRANSFERASE 25 U/L (12-78); ALKALINE PHOSPHATASE 106 U/L (45-117); ANION GAP 7 mmol/L (5-15); BILIRUBIN,TOTAL 1.1 mg/dL (0.2-1.0); CREATININE 0.93 mg/dL (0.55-1.02); TOTAL PROTEIN 6.3 g/dL (6.4-8.2)
[2018-02-07] MEDS ORDERED: POTASSIUM PHOSPHATE 22 MEQ in SODIUM CHLORIDE 0.9% 500 ML IV ONE (07:30)
[2018-02-07] MEDS: ASPIRIN 81 MG TABLET CHEW PO/NG SCH (08:54)
[2018-02-07] MEDS: MULTIVITAMIN 1 TABLET PO SCH (08:54)
[2018-02-07] MEDS: FLUOXETINE HCL 20 MG CAPSULE PO SCH (08:54)
[2018-02-07] MEDS: POTASSIUM CHLORIDE 20 MEQ, MAGNESIUM SULFATE 1 GM, THIAMINE 200 MG, FOLIC ACID 1 MG, MV... IV SCH (13:33)
[2018-02-07 19:17] VITALS: BP 104/67
[2018-02-07] MEDS: ATORVASTATIN 40 MG TABLET PO SCH (20:39)
[2018-02-07] MEDS: ACETAMINOPHEN 325 MG TABLET PO PRN (20:39)
[2018-02-07] MEDS: TRAZODONE 100MG TABLET PO SCH (20:39)
[2018-02-08 00:30] VITALS: BP 117/70
[2018-02-08] MEDS: methylPREDNISolone SOD SUCC 40 MG/ML IVPush SCH (02:03)
[2018-02-08] MEDS: PIPERACILLIN/TAZO/PMX 3.375GM 50 ML IV SCH (02:04)
[2018-02-08 07:26] VITALS: BP 115/68
[2018-02-08] MEDS: MULTIVITAMIN 1 TABLET PO SCH (08:12)
[2018-02-08] MEDS: FLUOXETINE HCL 20 MG CAPSULE PO SCH (08:12)
[2018-02-08] MEDS: ASPIRIN 81 MG TABLET CHEW PO/NG SCH (08:13)
[2018-02-08 08:31] LABS: MEAN CORPUSCULAR HEMOGLOBIN 30.5 pg (27.0-34.8); MEAN CORPUSCULAR HGB CONC 32.5 g/dL (32.4-35.8); MEAN CORPUSCULAR VOLUME 93.9 fL (80-100); MEAN PLATELET VOLUME 7.4 fL (7.4-10.4); PLATELET COUNT 217 x10^3/uL (130-400); RED CELL DISTRIBUTION WIDTH 18.6 % (9.6-15.2)
[2018-02-08 08:40] LABS: ANION GAP 7 mmol/L (5-15); CALCIUM 8.1 mg/dL (8.5-10.1); CHLORIDE 108 mmol/L (98-107); CREATININE 0.83 mg/dL (0.55-1.02)
[2018-02-08 08:45] LABS: BASOPHILS % (AUTO) 0 % (0-1); EOSINOPHILS % (AUTO) 0 % (1-7); LYMPHOCYTES % (AUTO) 4 % (22-44); MD SCAN; MONOCYTES # (AUTO) 0.15 x10^3/uL (0.2-0.8); MONOCYTES % (AUTO) 2 % (2-9); NEUTROPHILS # (AUTO) 9.46 x10^3/uL (1.8-6.8); NEUTROPHILS % (AUTO) 95 % (42-75)
[2018-02-08] MEDS ORDERED: METOPROLOL TARTRATE 25 MG TABLET PO SCH ×2 (09:00→18:00)
[2018-02-08] MEDS: SODIUM CHLORIDE 0.9% 1,000 ML IV SCH ×2 (12:07→21:52)
[2018-02-08] MEDS: ACETAMINOPHEN 325 MG TABLET PO PRN ×2 (12:29→21:47)
[2018-02-08 15:16] VITALS: BP 113/54
[2018-02-08] MEDS: ENOXAPARIN 40 MG/0.4 ML SQ SCH (15:36)
[2018-02-08] MEDS: AMOXICILLIN/CLAV 875-125MG TABLET PO SCH ×2 (15:37→21:46)
[2018-02-08 19:29] VITALS: BP 112/76
[2018-02-08] MEDS: TRAZODONE 100MG TABLET PO SCH (21:46)
[2018-02-08] MEDS: ATORVASTATIN 40 MG TABLET PO SCH (21:47)
[2018-02-09 00:27] VITALS: BP 126/74
[2018-02-09] MEDS: SODIUM CHLORIDE 0.9% 1,000 ML IV SCH ×3 (06:22→22:22)
[2018-02-09] MEDS: METOPROLOL TARTRATE 25 MG TABLET PO SCH ×2 (06:26→17:13)
[2018-02-09 06:30] VITALS: BP 134/88
[2018-02-09] MEDS: ACETAMINOPHEN 325 MG TABLET PO PRN ×2 (06:34→14:26)
[2018-02-09 06:48] VITALS: BP 129/78
[2018-02-09] MEDS: MULTIVITAMIN 1 TABLET PO SCH (08:22)
[2018-02-09] MEDS: AMOXICILLIN/CLAV 875-125MG TABLET PO SCH ×2 (08:22→21:10)
[2018-02-09] MEDS: ASPIRIN 81 MG TABLET CHEW PO/NG SCH (08:22)
[2018-02-09] MEDS: FLUOXETINE HCL 20 MG CAPSULE PO SCH (08:22)
[2018-02-09 11:50] LABS: CLOSTRIDIUM DIFFICILE ANTIGEN NEGATIVE; CLOSTRIDIUM DIFFICILE TOXIN NEGATIVE (Negative)
[2018-02-09 12:27] VITALS: BP 145/80
[2018-02-09] MEDS: ENOXAPARIN 40 MG/0.4 ML SQ SCH (14:45)
[2018-02-09 19:02] VITALS: BP 137/76
[2018-02-09] MEDS: TRAZODONE 100MG TABLET PO SCH (21:10)
[2018-02-09] MEDS: ATORVASTATIN 40 MG TABLET PO SCH (21:10)
[2018-02-10 02:07] VITALS: BP 125/71
[2018-02-10 06:07] VITALS: BP 122/68
[2018-02-10] MEDS: ACETAMINOPHEN 325 MG TABLET PO PRN ×3 (06:11→17:47)
[2018-02-10 07:06] VITALS: BP 129/65
[2018-02-10 10:06] VITALS: BP 135/87
[2018-02-10] MEDS: AMOXICILLIN/CLAV 875-125MG TABLET PO SCH ×2 (10:09→20:51)
[2018-02-10] MEDS: FLUOXETINE HCL 20 MG CAPSULE PO SCH (10:10)
[2018-02-10] MEDS: MULTIVITAMIN 1 TABLET PO SCH (10:10)
[2018-02-10] MEDS: ENOXAPARIN 40 MG/0.4 ML SQ SCH (10:11)
[2018-02-10] MEDS: METOPROLOL TARTRATE 25 MG TABLET PO SCH ×2 (10:16→17:47)
[2018-02-10] MEDS: ASPIRIN 81 MG TABLET CHEW PO/NG SCH (10:16)
[2018-02-10] MEDS: SODIUM CHLORIDE 0.9% 1,000 ML IV SCH ×2 (11:53→20:50)
[2018-02-10 12:06] VITALS: BP 133/76
[2018-02-10] MEDS ORDERED: MULT1TAB60 PO (14:21)
[2018-02-10] MEDS ORDERED: ONDA4TAB13 PO (14:21)
[2018-02-10] MEDS ORDERED: ATOR40TA78 PO (14:21)
[2018-02-10] MEDS ORDERED: FLUO20CA8 PO (14:21)
[2018-02-10] MEDS ORDERED: AMOX1TAB12 PO (14:21)
[2018-02-10] MEDS ORDERED: ASPI-515 PO (14:21)
[2018-02-10] MEDS ORDERED: HYDR25TA11 PO (14:21)
[2018-02-10] MEDS ORDERED: METO25TA35 PO (14:21)
[2018-02-10] MEDS ORDERED: TRAZ-137 PO (14:21)
[2018-02-10] MEDS ORDERED: PRED20TA PO (14:21)
[2018-02-10] MEDS ORDERED: DOCU-131 PO (14:21)
[2018-02-10 18:30] VITALS: BP 116/66
[2018-02-10] MEDS: ATORVASTATIN 40 MG TABLET PO SCH (20:51)
[2018-02-10] MEDS: TRAZODONE 100MG TABLET PO SCH (20:51)
[2018-02-11 00:51] VITALS: BP 148/63
[2018-02-11] MEDS: SODIUM CHLORIDE 0.9% 1,000 ML IV SCH (04:56)
[2018-02-11] MEDS: ACETAMINOPHEN 325 MG TABLET PO PRN ×4 (04:56→17:52)
[2018-02-11 07:18] VITALS: BP 138/75
[2018-02-11] MEDS ORDERED: METOPROLOL TARTRATE 25 MG TABLET ONE (08:38)
[2018-02-11] MEDS: ASPIRIN 81 MG TABLET CHEW PO/NG SCH (08:45)
[2018-02-11] MEDS: AMOXICILLIN/CLAV 875-125MG TABLET PO SCH ×2 (08:45→20:44)
[2018-02-11] MEDS: FLUOXETINE HCL 20 MG CAPSULE PO SCH (08:46)
[2018-02-11] MEDS: MULTIVITAMIN 1 TABLET PO SCH (08:47)
[2018-02-11] MEDS ORDERED: METOPROLOL TARTRATE 25 MG TABLET PO ONE (09:00)
[2018-02-11 13:31] VITALS: BP 125/66
[2018-02-11] MEDS: ENOXAPARIN 40 MG/0.4 ML SQ SCH (13:40)
[2018-02-11 17:51] VITALS: BP 117/71
[2018-02-11] MEDS: METOPROLOL TARTRATE 25 MG TABLET PO SCH (17:53)
[2018-02-11 19:24] VITALS: BP 97/47
[2018-02-11] MEDS: TRAZODONE 100MG TABLET PO SCH (20:44)
[2018-02-11] MEDS: ATORVASTATIN 40 MG TABLET PO SCH (20:44)
[2018-02-12 00:51] VITALS: BP 125/76
[2018-02-12] MEDS: ACETAMINOPHEN 325 MG TABLET PO PRN ×2 (05:32→17:36)
[2018-02-12] MEDS: METOPROLOL TARTRATE 25 MG TABLET PO SCH ×2 (05:35→17:35)
[2018-02-12 07:37] VITALS: BP 150/70
[2018-02-12] MEDS: FLUOXETINE HCL 20 MG CAPSULE PO SCH (07:39)
[2018-02-12] MEDS: ASPIRIN 81 MG TABLET CHEW PO/NG SCH (07:39)
[2018-02-12] MEDS: MULTIVITAMIN 1 TABLET PO SCH (07:39)
[2018-02-12] MEDS: AMOXICILLIN/CLAV 875-125MG TABLET PO SCH ×2 (07:40→20:21)
[2018-02-12 12:40] VITALS: BP 101/65
[2018-02-12] MEDS: ENOXAPARIN 40 MG/0.4 ML SQ SCH (17:34)
[2018-02-12 17:58] VITALS: BP 106/56
[2018-02-12 18:51] VITALS: BP 123/72
[2018-02-12] MEDS: ATORVASTATIN 40 MG TABLET PO SCH (20:20)
[2018-02-12] MEDS: TRAZODONE 100MG TABLET PO SCH (20:21)
[2018-02-13 01:05] VITALS: BP 138/70
[2018-02-13] MEDS: ACETAMINOPHEN 325 MG TABLET PO PRN ×3 (04:59→17:20)
[2018-02-13] MEDS: METOPROLOL TARTRATE 25 MG TABLET PO SCH ×2 (06:05→17:20)
[2018-02-13 07:52] VITALS: BP 129/74
[2018-02-13] MEDS: ASPIRIN 81 MG TABLET CHEW PO/NG SCH (09:07)
[2018-02-13] MEDS: AMOXICILLIN/CLAV 875-125MG TABLET PO SCH ×2 (09:07→20:35)
[2018-02-13] MEDS: FLUOXETINE HCL 20 MG CAPSULE PO SCH (09:07)
[2018-02-13] MEDS: MULTIVITAMIN 1 TABLET PO SCH (09:08)
[2018-02-13 12:19] VITALS: BP 100/63
[2018-02-13] MEDS: ENOXAPARIN 40 MG/0.4 ML SQ SCH (16:20)
[2018-02-13] MEDS: ATORVASTATIN 40 MG TABLET PO SCH (20:35)
[2018-02-13] MEDS: TRAZODONE 100MG TABLET PO SCH (20:35)
[2018-02-13 21:21] VITALS: BP 100/72
[2018-02-14 01:18] VITALS: BP 108/63
[2018-02-14 02:50] VITALS: BP 104/61
[2018-02-14 05:39] LABS: CHLORIDE 108 mmol/L (98-107)
[2018-02-14 05:46] LABS: ALBUMIN 2.3 g/dL (3.4-5.0); ANION GAP 7 mmol/L (5-15); CALCIUM 8.4 mg/dL (8.5-10.1); CREATININE 0.73 mg/dL (0.55-1.02)
[2018-02-14] MEDS: METOPROLOL TARTRATE 25 MG TABLET PO SCH (06:00)
[2018-02-14 07:24] VITALS: BP 97/57
[2018-02-14] MEDS: ASPIRIN 81 MG TABLET CHEW PO/NG SCH (08:25)
[2018-02-14] MEDS: ACETAMINOPHEN 325 MG TABLET PO PRN (08:25)
[2018-02-14] MEDS: MULTIVITAMIN 1 TABLET PO SCH (08:25)
[2018-02-14] MEDS: FLUOXETINE HCL 20 MG CAPSULE PO SCH (08:25)
[2018-02-14] MEDS: AMOXICILLIN/CLAV 875-125MG TABLET PO SCH (08:25)
[2018-02-14 12:25] VITALS: BP 115/65
== END 2018-02-14 13:31 | DRG 177 ==
LOC: ED 15:46 → EDIP 17:02 → 5SO 17:59 → CCU 02-06 02:08 → 5SO 02-07 19:07 → 4WST 02-12 17:55
PROVIDERS: ADMIT Hospitalist; ATTEND Family Medicine
DX: J69.0 Pneumonitis due to inhalation of food and vomit (principal); I21.A1 Myocardial infarction type 2; J96.01 Acute respiratory failure with hypoxia; I48.1 Persistent atrial fibrillation; E87.2 Acidosis; J44.1 Chronic obstructive pulmonary disease with (acute) exacerbation; D68.69 Other thrombophilia; F10.229 Alcohol dependence with intoxication, unspecified; F31.9 Bipolar disorder, unspecified; D69.6 Thrombocytopenia, unspecified; I45.81 Long QT syndrome; M19.90 Unspecified osteoarthritis, unspecified site; I95.9 Hypotension, unspecified; Z91.14 Patient's other noncompliance with medication regimen; E16.2 Hypoglycemia, unspecified; E86.0 Dehydration; G40.909 Epilepsy, unspecified, not intractable, without status epilepticus; G90.9 Disorder of the autonomic nervous system, unspecified; I10 Essential (primary) hypertension; I08.1 Rheumatic disorders of both mitral and tricuspid valves; I45.10 Unspecified right bundle-branch block; I48.0 Paroxysmal atrial fibrillation; S01.112A Laceration without foreign body of left eyelid and periocular area, initial encounter; Y90.1 Blood alcohol level of 20-39 mg/100 ml; Z82.49 Family history of ischemic heart disease and other diseases of the circulatory system; Z91.5 Personal history of self-harm; I25.2 Old myocardial infarction; Z59.0 Homelessness; Z87.891 Personal history of nicotine dependence; Z91.19 Patient's noncompliance with other medical treatment and regimen; Z91.81 History of falling; Z90.49 Acquired absence of other specified parts of digestive tract; Z90.89 Acquired absence of other organs
CPT/HCPCS: 36415; 36600; 70450; 71045; 71275; 72190; 80048; 80053; 80061; 80307; 82040; 82803; 82962; 83605; 83735; 83880; 84100; 84484; 85025; 85610; 85730; 87081; 87324; 93005; 93306; 93880; 94644; 96361; 96374; G0378; J0696; J1650; J2543; J3411; J3475; J3480; J7060; Q0162; J1940; J2060; J2920; J7030; J7040; J7512; Q0177

== ENCOUNTER 2018-10-18 12:34 | Emergency (ER) | payer MEDICAID, MEDICARE ==
[~2018-10-18] VITALS: Ht 167.6 cm; Wt 86.0 kg
[~2018-10-18 12:34] MED LIST changes: +AMOX1TAB12 PO; +ASPI-515 PO; +ATOR40TA78 PO; +DOCU-131 PO; -FLUT16SP NAS; +FLUT16SP24 NAS; +METO25TA35 PO; +ONDA4TAB13 PO; +PRED20TA PO; -TRAZ-136 PO; +TRAZ50TA66 PO
[2018-10-18] MEDS ORDERED: PLEASE ENTER HEIGHT AND WEIGHT MC SCH (13:00)
[2018-10-18] MEDS ORDERED: ASPIRIN 81 MG TABLET CHEW PO ONE (13:00)
--- NOTE | 2018-10-18 13:00 | NUR ---
PT C/O CHEST PAIN, 01/08. PER PT, IT STARTED YESTERDAY. PT REPORTS SHE HAS HAD A TOTAL OF 8 HEART ATTACKS.
[2018-10-18] MEDS ORDERED: ASPIRIN 81 MG TABLET CHEW ONE (14:01)
[2018-10-18 14:02] LABS: MEAN CORPUSCULAR HEMOGLOBIN 27.4 pg (27.0-34.8); MEAN CORPUSCULAR HGB CONC 32.3 g/dL (32.4-35.8); MEAN PLATELET VOLUME 6.3 fL (7.4-10.4); PLATELET COUNT 274 x10^3/uL (130-400); RED BLOOD COUNT 4.72 x10^6/uL (3.82-5.3); RED CELL DISTRIBUTION WIDTH 19.1 % (9.6-15.2)
[2018-10-18 14:03] LABS: ALANINE AMINOTRANSFERASE 63 U/L (12-78); ALBUMIN 3.2 g/dL (3.4-5.0); ANION GAP 12 mmol/L (5-15); CALCIUM 7.8 mg/dL (8.5-10.1); CHLORIDE 98 mmol/L (98-107)
[2018-10-18 14:04] LABS: INTERNATIONAL NORMALIZED RATIO 1.05 (0.93-1.1)
--- NOTE | 2018-10-18 14:07 | NUR ---
PT RESTING IN BED. VSS. I ASKED PT WHAT HER PAIN WAS, SHE SAID A 10. I ASKED HER WHERE HER PAIN WAS, SHE SAID HER BACK. I SAID, "DON'T YOU HAVE CHEST PAIN?" SHE SAID "OH, YES".
[2018-10-18 14:08] LABS: ALKALINE PHOSPHATASE 124 U/L (45-117); CREATININE 0.84 mg/dL (0.55-1.02); TROPONIN I 0.043 ng/mL (0.000-0.045)
[2018-10-18 14:45] LABS: BASOPHILS # (AUTO) 0.05 x10^3/uL (0-0.1); BASOPHILS % (AUTO) 0 % (0-1); EOSINOPHILS % (AUTO) 1 % (1-7); LYMPHOCYTES % (AUTO) 29 % (22-44); MD SCAN; MONOCYTES # (AUTO) 1.54 x10^3/uL (0.2-0.8); MONOCYTES % (AUTO) 14 % (2-9); NEUTROPHILS # (AUTO) 6.22 x10^3/uL (1.8-6.8); NEUTROPHILS % (AUTO) 56 % (42-75)
[2018-10-18] MEDS ORDERED: KETOROLAC 30 MG/1 ML IM ONE (15:00)
[2018-10-18] MEDS ORDERED: ACETAMINOPHEN 325 MG TABLET PO ONE (15:00)
[2018-10-18] MEDS ORDERED: ACETAMINOPHEN 325 MG TABLET ONE (15:05)
[2018-10-18] MEDS ORDERED: KETOROLAC 30 MG/1 ML ONE (15:05)
--- NOTE | 2018-10-18 15:12 | NUR ---
Pt medicated for 10/10 pain per MAR. Pt assisted to use bedpan, denies other needs.
--- NOTE | 2018-10-18 16:30 | NUR ---
Pt resting in bed with eyes closed, resp even and unlabored, NADN.
[2018-10-18 16:47] LABS: TROPONIN I 0.052 ng/mL (0.000-0.045)
--- NOTE | 2018-10-18 18:16 | NUR ---
PT NOT COMPLIANT WITH THE MEDICAL INSTRUCTIONS THAT I ATTEMPTED TO GIVE HER. PT STILL HAS ALL HER PRESCRIPTIONS FROM [facility] - DID NOT GET THEM FILLED. VSS. NAD. PT AMBULATES UNASSISTED.
--- NOTE | 2018-10-18 18:19 | NUR ---
I ATTEMPTED TO GIVE PT SNACKS, SHE DECLINED THEM. I GAVE PT A TAXI VOUCHER.
[2018-10-18 18:20] VITALS: BP 168/101
[2018-10-21] MEDS ORDERED: PRED5TAB19 PO (12:27)
[2018-10-21] MEDS ORDERED: ASPI81TA45 PO (12:27)
[2018-10-21] MEDS ORDERED: CEFD300C37 PO (12:27)
[2018-10-21] MEDS ORDERED: MAGN400T7 PO (12:27)
[2018-10-21] MEDS ORDERED: METO25TA35 PO (12:27)
[2018-10-21] MEDS ORDERED: TRAZ-96 PO (12:27)
[2018-10-21] MEDS ORDERED: AZIT250T89 PO (12:27)
[2018-10-21] MEDS ORDERED: ALBU8.5H8 INH (12:27)
== END 2018-10-18 18:20 | disposition home or self-care (01) ==
LOC: ED 15:13
DX: R07.89 Other chest pain (principal); Z72.9 Problem related to lifestyle, unspecified; I10 Essential (primary) hypertension; I25.2 Old myocardial infarction; I48.91 Unspecified atrial fibrillation; G40.909 Epilepsy, unspecified, not intractable, without status epilepticus
CPT/HCPCS: 36415; 71045; 80053; 84484; 85025; 85610; 85730; 93005; 96372; 99284; J1885

== ENCOUNTER 2018-10-21 07:37 | Inpatient (IN) | payer MEDICARE ==
[~2018-10-21] VITALS: Ht 167.6 cm; Wt 93.2 kg
[2018-10-23 07:18] VITALS: BP 130/82
== END 2018-10-23 15:17 | disposition home or self-care (01) | DRG 391 ==
LOC: ED 08:50 → EDIP 10:14 → 5SO 11:14
PROVIDERS: ADMIT Family Medicine; ATTEND Family Medicine
DX: K29.20 Alcoholic gastritis without bleeding (principal); J18.9 Pneumonia, unspecified organism; F10.239 Alcohol dependence with withdrawal, unspecified; E87.2 Acidosis; J44.0 Chronic obstructive pulmonary disease with (acute) lower respiratory infection; I48.91 Unspecified atrial fibrillation; E16.2 Hypoglycemia, unspecified; E87.6 Hypokalemia; F31.9 Bipolar disorder, unspecified; G40.909 Epilepsy, unspecified, not intractable, without status epilepticus; G89.29 Other chronic pain; M54.9 Dorsalgia, unspecified; I11.0 Hypertensive heart disease with heart failure; I45.10 Unspecified right bundle-branch block; I50.9 Heart failure, unspecified; K52.9 Noninfective gastroenteritis and colitis, unspecified; Z59.0 Homelessness; Z82.49 Family history of ischemic heart disease and other diseases of the circulatory system; Z91.19 Patient's noncompliance with other medical treatment and regimen; I25.2 Old myocardial infarction; Z79.82 Long term (current) use of aspirin; Z79.899 Other long term (current) drug therapy
CPT/HCPCS: 36415; 71045; 80048; 80053; 80307; 81001; 82010; 82274; 82800; 82947; 82962; 83036; 83605; 83690; 83735; 84145; 84484; 85025; 85610; 85730; 87040; 87086; 87324; 89055; 93005; 96361; 96374; 96376; G0378; J1885; J3480; C9113; J2060; J7030

== ENCOUNTER 2019-02-17 11:20 | Inpatient (IN) | payer MEDICARE, MEDICAID ==
[~2019-02-17] VITALS: Ht 167.6 cm; Wt 84.0 kg
[~2019-02-17 11:20] MED LIST changes: +ACET325T26 PO; +ACID1TAB7 PO; +ALBU8.5H8 INH; +ASPI81TA45 PO; +AZIT250T89 PO; +FAMO20TA7 PO; +HYDR-826 PO; -HYDR25TA11 PO; +MAGN400T9 PO; +METO-93 PO; +OMEP-110 PO; +OXYB5TAB10 PO; -OXYB5TAB7 PO; +PRED5TAB19 PO; +SUCR1TAB33 PO; +TRAZ-96 PO
--- NOTE | 2019-02-17 11:50 | NUR ---
PT BIB [facility], PER REPORT PT SUSTAINED A GLF WHILE AT THE [facility]. PT STATES SHE STOOD AND FELT DIZZY AND FELL, PT DENIES HITTING HER HEAD OR ANY INJURY FROM FALL. PER EMS BS 104. ERMD IN TO EVAL PT, PT TO BP, CARD MONITOR, CONT PULSE OX, EKG COMPLETED
[2019-02-17] MEDS ORDERED: SODIUM CHLORIDE 0.9% 1,000ML IVBOLUS ONE (12:00)
[2019-02-17] MEDS ORDERED: DILTIAZEM 5 MG/ML, 5ML ONE (12:04)
[2019-02-17] MEDS ORDERED: THIAMINE 100MG TABLET ONE (12:04)
--- NOTE | 2019-02-17 12:12 | NUR ---
PT MEDICATED PER MAY, LAB IN TO DRAW PT. DX CHEST COMPLETED
[2019-02-17 12:43] LABS: ALBUMIN 3.4 g/dL (3.4-5.0); ANION GAP 15 mmol/L (5-15); CALCIUM 8.3 mg/dL (8.5-10.1); CHLORIDE 107 mmol/L (98-107)
[2019-02-17 12:48] LABS: MEAN CORPUSCULAR HEMOGLOBIN 23.1 pg (27.0-34.8); MEAN CORPUSCULAR HGB CONC 30.6 g/dL (32.4-35.8); MEAN CORPUSCULAR VOLUME 75.6 fL (80-100); MEAN PLATELET VOLUME 6.6 fL (7.4-10.4); PLATELET COUNT 265 x10^3/uL (130-400); RED BLOOD COUNT 3.91 x10^6/uL (3.82-5.3); RED CELL DISTRIBUTION WIDTH 23.2 % (9.6-15.2)
[2019-02-17 12:49] LABS: CREATININE 0.78 mg/dL (0.55-1.02); TROPONIN I 0.022 ng/mL (0.000-0.045)
[2019-02-17] MEDS ORDERED: DILTIAZEM 5 MG/ML, 5ML IVPush ONE (13:00)
[2019-02-17] MEDS ORDERED: THIAMINE 100MG TABLET PO ONE (13:00)
[2019-02-17] MEDS ORDERED: SODIUM CHLORIDE FLUSH 10ML SYR IVF ONE (13:00)
[2019-02-17 13:10] LABS: MD YES
[2019-02-17 13:12] LABS: LYMPH#(MANUAL) 1.06 x10^3/uL (1-3.4); LYMPHS% (MANUAL) 19 % (22-44)
[2019-02-17 13:13] LABS: ANISOCYTOSIS 1+; HYPOCHROMIA 1+; MICROCYTOSIS 1+; MONOS#(MANUAL) 0.39 x10^3/uL (0.3-2.7); MONOS% (MANUAL) 7 % (2-9); SEG#(MANUAL) 4.14 x10^3/uL (1.8-6.8); SEGS% (MANUAL) 74 % (42-75)
[2019-02-17 13:14] LABS: OVALOCYTES 1+; POLYCHROMASIA 1+
[2019-02-17 13:15] LABS: <PLATELET ESTIMATE> ADEQUATE; <PLT MORPHOLOGY> NORMAL PLT MORPH
[2019-02-17] MEDS ORDERED: POTASSIUM CHLORIDE 40 MEQ in SODIUM CHLORIDE 0.9% 500 ML IV ONE (14:00)
[2019-02-17] MEDS ORDERED: POTASSIUM CHLORIDE 20 MEQ PACKET PO ONE (14:00)
--- NOTE | 2019-02-17 14:15 | NUR ---
UPDATED ON PT HR GOING BACK UP 120-140. ORDERS RECEIVED FOR A DILT GTT. ONE FAILED ATTEMPT AT IV ACCESS.
[2019-02-17] MEDS ORDERED: ONDANSETRON 2MG/ML, 2ML IVPush PRN (14:30)
[2019-02-17] MEDS ORDERED: NITROGLYCERIN 0.4 MG BOTTLE (25 TABS) SL PRN (14:30)
[2019-02-17] MEDS ORDERED: LORazepam 1MG TABLET PO PRN ×4 (14:30)
[2019-02-17] MEDS ORDERED: LORazepam 2 MG/ML, 1ML IV PRN ×5 (14:30)
[2019-02-17] MEDS ORDERED: METOCLOPRAMIDE 5 MG/ML, 2ML IVPush PRN (14:30)
[2019-02-17] MEDS ORDERED: LABETALOL 5MG/ML, 20ML IVPush PRN (14:30)
[2019-02-17] MEDS ORDERED: hydrALAzine 20 MG/ML, 1ML IVPush PRN (14:30)
[2019-02-17] MEDS ORDERED: LORazepam 0.5MG TABLET PO PRN (14:30)
[2019-02-17] MEDS ORDERED: POLYETHYLENE GLYCOL 17 GM PACKET PO PRN (14:30)
[2019-02-17] MEDS ORDERED: ACETAMINOPHEN 325 MG TABLET PO PRN (14:30)
[2019-02-17] MEDS ORDERED: DOCUSATE 100 MG CAPSULE PO PRN (14:30)
[2019-02-17] MEDS: ENOXAPARIN 40 MG/0.4 ML SQ SCH (14:30)
[2019-02-17] MEDS ORDERED: POTASSIUM CHLORIDE 20 MEQ PACKET ONE (14:32)
--- NOTE | 2019-02-17 14:51 | NUR ---
PT TO XR
[2019-02-17] MEDS: DILTIAZEM 125 MG in SODIUM CHLORIDE 0.9% 100 ML IV SCH ×2 (15:06→17:20)
--- NOTE | 2019-02-17 15:49 | NUR ---
PT AMBULATED TO BR, PT WITH LOOSE BM ALTHOUGH UNABLE TO CATCH IN HAT. ASSISTED PT BACK TO BED. ONE PIV INFILTRATED, WILL ATTEMPT ANOTHER ACCESS
[2019-02-17] MEDS: SUCRALFATE 1 GM TABLET PO SCH ×2 (16:00→20:05)
[2019-02-17] MEDS ORDERED: ALBUTEROL SULFATE INH SCH (16:00)
[2019-02-17] MEDS ORDERED: QUETIAPINE 100MG TABLET ONE (16:14)
[2019-02-17] MEDS: QUETIAPINE 100MG TABLET PO SCH ×2 (16:15→20:05)
--- NOTE | 2019-02-17 16:29 | NUR ---
REPORT GIVEN TO RECTOÑO SIDDIQUI
[2019-02-17] MEDS ORDERED: NS + 20MEQ KCL 1,000 ML IV SCH (17:02)
[2019-02-17 17:20] VITALS: BP 111/68
[2019-02-17] MEDS ORDERED: METOPROLOL TARTRATE 50 MG TABLET ONE (17:26)
[2019-02-17] MEDS: METOPROLOL TARTRATE 50 MG TABLET PO SCH ×2 (17:55→20:05)
[2019-02-17] MEDS: OMEPRAZOLE 20 MG CAPSULE.DR PO SCH (20:04)
[2019-02-17] MEDS: ATORVASTATIN 40 MG TABLET PO SCH (20:05)
[2019-02-17] MEDS: ALBUTEROL SULFATE 2.5 MG/3 ML NPPB SCH (21:00)
[2019-02-17 21:29] VITALS: BP 109/67
[2019-02-17] MEDS ORDERED: TRAZODONE 100MG TABLET PO ONE (21:30)
[2019-02-18] VITALS (8 sets, daily range): BP systolic 104–124; BP diastolic 60–76
[2019-02-18 05:28] LABS: ANION GAP 7 mmol/L (5-15); CALCIUM 8.5 mg/dL (8.5-10.1); CHLORIDE 107 mmol/L (98-107)
[2019-02-18 05:37] LABS: ALANINE AMINOTRANSFERASE 38 U/L (12-78); ALKALINE PHOSPHATASE 80 U/L (45-117); CREATININE 0.69 mg/dL (0.55-1.02)
[2019-02-18] MEDS: SUCRALFATE 1 GM TABLET PO SCH ×4 (05:45→20:48)
[2019-02-18] MEDS ORDERED: METOPROLOL SUCCINATE 50 MG TAB.ER.24H PO SCH (06:00)
[2019-02-18 06:05] LABS: MEAN CORPUSCULAR HEMOGLOBIN 22.9 pg (27.0-34.8); MEAN CORPUSCULAR HGB CONC 30.1 g/dL (32.4-35.8); RED BLOOD COUNT 3.11 x10^6/uL (3.82-5.3); RED CELL DISTRIBUTION WIDTH 22.6 % (9.6-15.2)
[2019-02-18 06:11] LABS: MD YES
[2019-02-18 06:12] LABS: MEAN PLATELET VOLUME 6.7 fL (7.4-10.4); PLATELET COUNT 189 x10^3/uL (130-400)
[2019-02-18 06:15] LABS: <PLATELET ESTIMATE> ADEQUATE; <PLT MORPHOLOGY> NORMAL PLT MORPH; ANISOCYTOSIS 1+; EOS#(MANUAL) 0.14 x10^3/uL (0.0-0.4); EOS% (MANUAL) 3 % (1-7); HYPOCHROMIA 1+; LYMPH#(MANUAL) 1.79 x10^3/uL (1-3.4); LYMPHS% (MANUAL) 39 % (22-44); MICROCYTOSIS 1+; MONOS#(MANUAL) 0.37 x10^3/uL (0.3-2.7); MONOS% (MANUAL) 8 % (2-9); OVALOCYTES 1+; POLYCHROMASIA 1+; SEGS% (MANUAL) 50 % (42-75)
[2019-02-18 06:16] LABS: ECHINOCYTES 1+
[2019-02-18] MEDS: ALBUTEROL SULFATE 2.5 MG/3 ML NPPB SCH ×4 (06:50→19:22)
[2019-02-18] MEDS ORDERED: MAGNESIUM SULFATE PMX 2GM/50ML 50 ML IV ONE (08:00)
[2019-02-18] MEDS: MULTIVITAMINS/MINERALS TABLET PO SCH (08:44)
[2019-02-18] MEDS: FOLIC ACID 1 MG TABLET PO SCH (08:44)
[2019-02-18] MEDS: QUETIAPINE 100MG TABLET PO SCH ×3 (08:44→20:49)
[2019-02-18] MEDS: METOPROLOL TARTRATE 50 MG TABLET PO SCH ×3 (08:45→20:47)
[2019-02-18] MEDS: OMEPRAZOLE 20 MG CAPSULE.DR PO SCH ×2 (08:45→20:48)
[2019-02-18] MEDS: FLUOXETINE HCL 20 MG CAPSULE PO SCH (08:50)
[2019-02-18] MEDS ORDERED: THIAMINE 100MG TABLET PO ONE (09:00)
[2019-02-18] MEDS: ENOXAPARIN 40 MG/0.4 ML SQ SCH (11:53)
[2019-02-18] MEDS: NEUTRA PHOS K 250 MG TABLET PO SCH ×3 (13:17→20:46)
[2019-02-18] MEDS ORDERED: TRAZODONE 100MG TABLET PO PRN (19:00)
[2019-02-18] MEDS: ATORVASTATIN 40 MG TABLET PO SCH (20:46)
[2019-02-19] VITALS (7 sets, daily range): BP systolic 87–123; BP diastolic 54–89
[2019-02-19] MEDS: SUCRALFATE 1 GM TABLET PO SCH ×4 (05:05→21:00)
[2019-02-19 05:48] LABS: CHLORIDE 106 mmol/L (98-107)
[2019-02-19] MEDS: ALBUTEROL SULFATE 2.5 MG/3 ML NPPB SCH ×4 (06:00→20:17)
[2019-02-19 06:03] LABS: MEAN CORPUSCULAR HEMOGLOBIN 23.6 pg (27.0-34.8); MEAN CORPUSCULAR HGB CONC 30.9 g/dL (32.4-35.8); MEAN CORPUSCULAR VOLUME 76.5 fL (80-100); PLATELET COUNT 191 x10^3/uL (130-400); RED BLOOD COUNT 3.18 x10^6/uL (3.82-5.3); RED CELL DISTRIBUTION WIDTH 23.4 % (9.6-15.2)
[2019-02-19 06:12] LABS: % IRON SATURATION 3 % (20-55); ANION GAP 6 mmol/L (5-15); CALCIUM 8.4 mg/dL (8.5-10.1); CREATININE 0.72 mg/dL (0.55-1.02); IRON LEVEL 9 mcg/dL (50-170); TOTAL IRON BINDING CAPACITY 284 mcg/dL (250-450)
[2019-02-19 06:39] LABS: MD YES
[2019-02-19 06:41] LABS: <PLATELET ESTIMATE> ADEQUATE; <PLT MORPHOLOGY> NORMAL PLT MORPH; ANISOCYTOSIS 1+; ECHINOCYTES 1+; EOS#(MANUAL) 0.05 x10^3/uL (0.0-0.4); EOS% (MANUAL) 1 % (1-7); HYPOCHROMIA 1+; LYMPH#(MANUAL) 1.49 x10^3/uL (1-3.4); LYMPHS% (MANUAL) 33 % (22-44); MICROCYTOSIS 1+; MONOS#(MANUAL) 0.36 x10^3/uL (0.3-2.7); MONOS% (MANUAL) 8 % (2-9); OVALOCYTES 1+; POLYCHROMASIA 1+; SEG#(MANUAL) 2.61 x10^3/uL (1.8-6.8); SEGS% (MANUAL) 58 % (42-75)
[2019-02-19 06:44] LABS: ACANTHOCYTES 1+
[2019-02-19] MEDS: MULTIVITAMINS/MINERALS TABLET PO SCH (09:58)
[2019-02-19] MEDS: NEUTRA PHOS K 250 MG TABLET PO SCH ×3 (09:58→21:00)
[2019-02-19] MEDS: FLUOXETINE HCL 20 MG CAPSULE PO SCH (09:58)
[2019-02-19] MEDS: FOLIC ACID 1 MG TABLET PO SCH (09:58)
[2019-02-19] MEDS: METOPROLOL TARTRATE 50 MG TABLET PO SCH ×3 (09:58→21:00)
[2019-02-19] MEDS: QUETIAPINE 100MG TABLET PO SCH ×3 (09:59→21:00)
[2019-02-19] MEDS: OMEPRAZOLE 20 MG CAPSULE.DR PO SCH ×2 (09:59→21:00)
[2019-02-19] MEDS: ENOXAPARIN 40 MG/0.4 ML SQ SCH (16:10)
[2019-02-19 18:07] LABS: OCCULT BLOOD NEGATIVE (NEGATIVE)
[2019-02-19] MEDS ORDERED: TRAZODONE 100MG TABLET PO SCH (21:00)
[2019-02-19] MEDS: ATORVASTATIN 40 MG TABLET PO SCH (21:00)
[2019-02-20 03:59] VITALS: BP 110/61
[2019-02-20] MEDS: ALBUTEROL SULFATE 2.5 MG/3 ML NPPB SCH (06:00)
[2019-02-20 06:07] LABS: MEAN CORPUSCULAR HEMOGLOBIN 23.7 pg (27.0-34.8); MEAN CORPUSCULAR HGB CONC 30.2 g/dL (32.4-35.8); MEAN CORPUSCULAR VOLUME 78.5 fL (80-100); RED BLOOD COUNT 3.46 x10^6/uL (3.82-5.3); RED CELL DISTRIBUTION WIDTH 23.5 % (9.6-15.2)
[2019-02-20] MEDS: SUCRALFATE 1 GM TABLET PO SCH ×2 (06:17→12:31)
[2019-02-20 06:27] LABS: MD YES; MEAN PLATELET VOLUME 7.6 fL (7.4-10.4); PLATELET COUNT 181 x10^3/uL (130-400)
[2019-02-20 06:29] LABS: MONOS#(MANUAL) 0.42 x10^3/uL (0.3-2.7); MONOS% (MANUAL) 10 % (2-9)
[2019-02-20 06:30] LABS: ANISOCYTOSIS 1+; EOS#(MANUAL) 0.17 x10^3/uL (0.0-0.4); EOS% (MANUAL) 4 % (1-7); HYPOCHROMIA 1+; LYMPH#(MANUAL) 1.55 x10^3/uL (1-3.4); LYMPHS% (MANUAL) 37 % (22-44); MICROCYTOSIS 1+; OVALOCYTES 1+; POLYCHROMASIA 1+; SEG#(MANUAL) 2.06 x10^3/uL (1.8-6.8); SEGS% (MANUAL) 49 % (42-75)
[2019-02-20 06:31] LABS: <PLATELET ESTIMATE> ADEQUATE; <PLT MORPHOLOGY> NORMAL PLT MORPH; ECHINOCYTES 1+
[2019-02-20 08:44] VITALS: BP 129/79
[2019-02-20] MEDS: FOLIC ACID 1 MG TABLET PO SCH (09:16)
[2019-02-20] MEDS: METOPROLOL TARTRATE 50 MG TABLET PO SCH (09:16)
[2019-02-20] MEDS: FLUOXETINE HCL 20 MG CAPSULE PO SCH (09:16)
[2019-02-20] MEDS: QUETIAPINE 100MG TABLET PO SCH (09:16)
[2019-02-20] MEDS: MULTIVITAMINS/MINERALS TABLET PO SCH (09:16)
[2019-02-20] MEDS: OMEPRAZOLE 20 MG CAPSULE.DR PO SCH (09:16)
[2019-02-20] MEDS: NEUTRA PHOS K 250 MG TABLET PO SCH (09:17)
[2019-02-20] MEDS ORDERED: ALBUTEROL SULFATE 2.5 MG/3 ML NPPB PRN (10:00)
[2019-02-20] MEDS ORDERED: ACID1TAB7 PO (10:21)
[2019-02-20] MEDS ORDERED: FAMO20TA7 PO (10:21)
[2019-02-20] MEDS ORDERED: ATOR40TA78 PO (10:21)
[2019-02-20] MEDS ORDERED: TRAZ-137 PO (10:21)
[2019-02-20] MEDS ORDERED: ALBU8.5H8 INH (10:21)
[2019-02-20] MEDS ORDERED: METO-93 PO (10:21)
[2019-02-20] MEDS ORDERED: ACET325T26 PO (10:21)
[2019-02-20] MEDS ORDERED: FLUO20CA8 PO (10:21)
[2019-02-20] MEDS ORDERED: QUET100T PO (10:21)
== END 2019-02-20 12:39 | disposition home or self-care (01) | DRG 309 ==
LOC: ED 14:13 → EDIP 14:14 → ED 14:33 → 5SO 16:58
PROVIDERS: ADMIT Internal Medicine; ATTEND Internal Medicine
DX: I48.0 Paroxysmal atrial fibrillation (principal); I50.32 Chronic diastolic (congestive) heart failure; F10.229 Alcohol dependence with intoxication, unspecified; I42.6 Alcoholic cardiomyopathy; E66.9 Obesity, unspecified; Z68.29 Body mass index [BMI] 29.0-29.9, adult; E83.39 Other disorders of phosphorus metabolism; E83.42 Hypomagnesemia; E87.6 Hypokalemia; F31.9 Bipolar disorder, unspecified; G40.909 Epilepsy, unspecified, not intractable, without status epilepticus; I25.2 Old myocardial infarction; J44.9 Chronic obstructive pulmonary disease, unspecified; Z59.0 Homelessness; Z63.8 Other specified problems related to primary support group; Z87.11 Personal history of peptic ulcer disease; I11.0 Hypertensive heart disease with heart failure
CPT/HCPCS: 0399T; 36415; 70450; 71045; 72072; 80048; 80053; 80307; 82040; 82272; 82728; 83540; 83550; 83735; 84100; 84134; 84484; 85025; 93005; 93306; 94640; 96365; 96375; G0378; J1650; J3480; J7613; J2060; J3475; J7030; J7040

== ENCOUNTER 2019-03-02 13:09 | Emergency (ER) | payer MEDICAID, MEDICARE, OTHER ==
[~2019-03-02] VITALS: Ht 167.6 cm; Wt 60.0 kg
--- NOTE | 2019-03-02 13:23 | NUR ---
BETTY HARRISON FROM [facility]. PT C/O COUGH X3 DAYS WITH BROWN SPUTUM.
[2019-03-02] MEDS ORDERED: OMEP-110 PO (13:28)
[2019-03-02] MEDS ORDERED: ASPI-496 PO (13:28)
[2019-03-02] MEDS ORDERED: QUET100T PO (13:28)
[2019-03-02] MEDS ORDERED: SUCR1TAB PO (13:28)
[2019-03-02] MEDS ORDERED: FLUO20CA8 PO (13:28)
[2019-03-02] MEDS ORDERED: ALBU0.63 NEB (13:28)
[2019-03-02] MEDS ORDERED: ATOR-2 PO (13:28)
[2019-03-02] MEDS ORDERED: HYDR-826 PO (13:28)
[2019-03-02] MEDS ORDERED: TRAZ-137 PO (13:28)
[2019-03-02] MEDS ORDERED: METO25TA35 PO (13:28)
[2019-03-02] MEDS ORDERED: ALBU18HF INH (13:28)
[2019-03-02] MEDS ORDERED: OXYB5TAB10 PO (13:28)
[2019-03-02 13:57] LABS: ALBUMIN 3.2 g/dL (3.4-5.0); ANION GAP 13 mmol/L (5-15); CALCIUM 8.3 mg/dL (8.5-10.1); CHLORIDE 105 mmol/L (98-107); CREATININE 0.89 mg/dL (0.55-1.02)
[2019-03-02 14:21] LABS: BASOPHILS # (AUTO) 0.02 x10^3/uL (0-0.1); BASOPHILS % (AUTO) 0 % (0-1); EOSINOPHILS # (AUTO) 0.06 x10^3/uL (0-0.4); EOSINOPHILS % (AUTO) 1 % (1-7); LYMPHOCYTES % (AUTO) 30 % (22-44); MD NO; MEAN CORPUSCULAR HEMOGLOBIN 22.6 pg (27.0-34.8); MEAN CORPUSCULAR HGB CONC 30.2 g/dL (32.4-35.8); MEAN CORPUSCULAR VOLUME 74.9 fL (80-100); MEAN PLATELET VOLUME 6.7 fL (7.4-10.4); MONOCYTES # (AUTO) 0.68 x10^3/uL (0.2-0.8); MONOCYTES % (AUTO) 9 % (2-9); NEUTROPHILS # (AUTO) 4.65 x10^3/uL (1.8-6.8); NEUTROPHILS % (AUTO) 60 % (42-75); PLATELET COUNT 464 x10^3/uL (130-400); RED BLOOD COUNT 3.82 x10^6/uL (3.82-5.3); RED CELL DISTRIBUTION WIDTH 23.8 % (9.6-15.2)
[2019-03-02 14:58] VITALS: BP 105/42
--- NOTE | 2019-03-02 15:08 | NUR ---
task RN note: VS resassessed. bp is 105/42; TIFFANY Roberts notified. TIFFANY zheng RN to dc patient. pt given dc instructions and script, educated regarding rx for tessalon. pt given taxi voucher. pt a&o, resps even and unlabored. pt amb to dc desk with walker. nadn. Addendum: 03/02/19 at 1512 by KEN task RN note: VS resassessed. bp is 105/42; TIFFANY Roberts notified. TIFFANY zheng RN to dc patient. pt given dc instructions and script, educated regarding rx for tessalon. pt given taxi voucher. pt a&o, resps even and unlabored. pt amb to dc desk with own walker, gait steady. nadn.
[2019-03-28] MEDS ORDERED: FERR325T18 PO (07:34)
== END 2019-03-02 15:09 | disposition home or self-care (01) ==
LOC: MERGE 15:00 → ED 15:00
DX: J20.8 Acute bronchitis due to other specified organisms (principal); B34.9 Viral infection, unspecified; I25.2 Old myocardial infarction; Z90.49 Acquired absence of other specified parts of digestive tract
CPT/HCPCS: 36415; 71046; 80048; 82040; 85025; 99284

== ENCOUNTER 2019-03-03 13:53 | Emergency (ER) | payer MEDICAID, OTHER ==
[~2019-03-03] VITALS: Ht 167.6 cm; Wt 81.8 kg
[~2019-03-03 13:53] MED LIST changes: +ALBU0.63 NEB; +ALBU18HF INH; +ASPI-496 PO; +ATOR-2 PO; +SUCR1TAB PO
[2019-03-03 14:06] VITALS: BP 112/64
[2019-03-03 15:12] LABS: ALANINE AMINOTRANSFERASE 57 U/L (12-78); ALBUMIN 3.5 g/dL (3.4-5.0); ANION GAP 15 mmol/L (5-15); CALCIUM 8.4 mg/dL (8.5-10.1); CHLORIDE 107 mmol/L (98-107)
--- NOTE | 2019-03-03 15:12 | NUR ---
COUNTER SALES REPRESENTATIVE: PT TO ROOM FROM LOBBY VIA WHEELCHAIR
[2019-03-03 15:17] LABS: ALKALINE PHOSPHATASE 144 U/L (45-117); BILIRUBIN,TOTAL 0.9 mg/dL (0.2-1.0); CREATININE 0.91 mg/dL (0.55-1.02); TOTAL PROTEIN 8.3 g/dL (6.4-8.2); TROPONIN I < 0.015 ng/mL (0.000-0.045)
[2019-03-03 15:34] LABS: HEMOGRAM NOTE RECHECKED; MEAN CORPUSCULAR HEMOGLOBIN 22.8 pg (27.0-34.8); PLATELET COUNT 527 x10^3/uL (130-400); RED CELL DISTRIBUTION WIDTH 23.8 % (9.6-15.2)
--- NOTE | 2019-03-03 15:34 | NUR ---
PT WITH C/O DECREASED HEARING AND STUFFINESS, PT STATES HAVING A DRY COUGH FOR SEVERAL DAYS. AT THIS TIME PT DENIES SOB, CP. ERMD IN TO EVAL PT. PT WITH LABS PENDING, - DX CHEST. ANTICIPATE DC
[2019-03-03 16:04] LABS: MD YES
[2019-03-03 16:09] LABS: BAND#(MANUAL) 0.18 x10^3/uL; BANDS%(MANUAL) 2 % (0-7); LYMPH#(MANUAL) 1.42 x10^3/uL (1-3.4); LYMPHS% (MANUAL) 16 % (22-44); MONOS#(MANUAL) 0.45 x10^3/uL (0.3-2.7); MONOS% (MANUAL) 5 % (2-9); SEG#(MANUAL) 6.85 x10^3/uL (1.8-6.8); SEGS% (MANUAL) 77 % (42-75)
[2019-03-03 16:10] LABS: ANISOCYTOSIS 1+; MICROCYTOSIS 1+; POLYCHROMASIA 1+
[2019-03-03 16:11] LABS: ECHINOCYTES 1+; HYPOCHROMIA 2+; OVALOCYTES 1+
[2019-03-03 16:12] LABS: <PLATELET ESTIMATE> INCREASED; <PLT MORPHOLOGY> NORMAL PLT MORPH; SPHEROCYTES 1+
--- NOTE | 2019-03-03 16:17 | NUR ---
Patient/Caregiver given discharge instructions and they have confirmed that they understand the instructions. Patient ambulatory with steady gait.
[2019-03-28] MEDS ORDERED: FERR325T18 PO (07:34)
== END 2019-03-03 16:20 | disposition home or self-care (01) ==
LOC: ED 16:09
DX: D50.0 Iron deficiency anemia secondary to blood loss (chronic) (principal); J02.8 Acute pharyngitis due to other specified organisms; B97.89 Other viral agents as the cause of diseases classified elsewhere; I10 Essential (primary) hypertension; I25.2 Old myocardial infarction; I48.91 Unspecified atrial fibrillation; Z90.49 Acquired absence of other specified parts of digestive tract
CPT/HCPCS: 36415; 71046; 80053; 83880; 84484; 85025; 93005; 99284

== ENCOUNTER 2019-03-16 14:52 | Emergency (ER) | payer MEDICARE, MEDICAID ==
[~2019-03-16] VITALS: Ht 167.6 cm; Wt 80.6 kg
--- NOTE | 2019-03-16 15:00 | NUR ---
PT BIB [facility] FOR N/V/D X2 DAYS WITH INTERMITTENT LOWER ABD CRAMPING. PT RECENTLY DX WITH PNA AT [facility] BUT WASNT SENT WITH ABX SCRIPT PER PT. CONNECTED TO ALL MONITORING, VSS. NO C/O PAIN AT THIS TIME. MD TO BEDSIDE FOR ASSESSMENT. GIVEN CHICKEN BROTH TO SIP ON BY MD. CALL LIGHT WITHIN REACH. AWAITING ORDERS AT THIS TIME.
--- NOTE | 2019-03-16 15:31 | NUR ---
TASK RN: PT RESTING ON DAXA. LAB BEDSIDE. NADER
--- NOTE | 2019-03-16 15:46 | NUR ---
TASK RN: BEDSIDE REPORT TO CHEN JONES.
[2019-03-16 16:00] LABS: ALBUMIN 2.8 g/dL (3.4-5.0); ANION GAP 10 mmol/L (5-15); CALCIUM 8.3 mg/dL (8.5-10.1); CHLORIDE 105 mmol/L (98-107)
[2019-03-16 16:01] LABS: CREATININE 0.68 mg/dL (0.55-1.02)
[2019-03-16 16:19] LABS: MEAN CORPUSCULAR HEMOGLOBIN 22.3 pg (27.0-34.8); MEAN CORPUSCULAR VOLUME 74.4 fL (80-100); MEAN PLATELET VOLUME 7.4 fL (7.4-10.4); PLATELET COUNT 381 x10^3/uL (130-400); RED CELL DISTRIBUTION WIDTH 23.7 % (9.6-15.2)
[2019-03-16] MEDS ORDERED: POTASSIUM CHLORIDE 20 MEQ TAB.ER.PRT ONE (16:25)
[2019-03-16] MEDS ORDERED: POTASSIUM CHLORIDE 20 MEQ TAB.ER.PRT PO ONE (16:30)
[2019-03-16 16:39] VITALS: BP 146/76
[2019-03-16 17:42] LABS: BASOPHILS # (AUTO) 0.02 x10^3/uL (0-0.1); BASOPHILS % (AUTO) 0 % (0-1); EOSINOPHILS # (AUTO) 0.09 x10^3/uL (0-0.4); EOSINOPHILS % (AUTO) 1 % (1-7); LYMPHOCYTES # (AUTO) 1.15 x10^3/uL (1-3.4); LYMPHOCYTES % (AUTO) 17 % (22-44); MD MORPH REVIEW ONLY; MONOCYTES # (AUTO) 0.93 x10^3/uL (0.2-0.8); MONOCYTES % (AUTO) 14 % (2-9); NEUTROPHILS # (AUTO) 4.58 x10^3/uL (1.8-6.8); NEUTROPHILS % (AUTO) 68 % (42-75)
[2019-03-16 17:43] LABS: ANISOCYTOSIS 1+; HYPOCHROMIA 2+; MICROCYTOSIS 1+; POLYCHROMASIA 1+
[2019-03-16 17:44] LABS: <PLATELET ESTIMATE> ADEQUATE; <PLT MORPHOLOGY> NORMAL PLT MORPH; ECHINOCYTES 1+; OVALOCYTES 1+
== END 2019-03-16 17:26 | disposition home or self-care (01) ==
LOC: ED 17:20
DX: K52.9 Noninfective gastroenteritis and colitis, unspecified (principal); D50.9 Iron deficiency anemia, unspecified; I48.91 Unspecified atrial fibrillation; I25.2 Old myocardial infarction; I10 Essential (primary) hypertension
CPT/HCPCS: 36415; 71045; 80048; 82040; 85025; 99284

== ENCOUNTER 2019-04-05 13:31 | Emergency (ER) | payer MEDICARE, MEDICAID ==
[~2019-04-05] VITALS: Ht 170.2 cm; Wt 74.0 kg
[~2019-04-05 13:31] MED LIST changes: +FERR325T18 PO
--- NOTE | 2019-04-05 13:53 | NUR ---
biba to ed from [facility] on [address]. c/o weakness/diff ambualting. bgl 108. abd snt. lungs ctab. pt drowsy, falls asleep between questions. denies etoh/drug use. ermd at bedside plan labs/straight cath. vss. side rails x2 call martinez in reach. as
[2019-04-05 14:17] LABS: ALANINE AMINOTRANSFERASE 19 U/L (12-78); ALBUMIN 3.4 g/dL (3.4-5.0); ANION GAP 8 mmol/L (5-15); CALCIUM 9.5 mg/dL (8.5-10.1); CHLORIDE 105 mmol/L (98-107); CREATININE 0.91 mg/dL (0.55-1.02); SALICYLATE LEVEL < 1.7 mg/dL (2.8-20.0)
[2019-04-05 14:19] LABS: MICROSCOPIC NOT IND
[2019-04-05 14:22] LABS: CULTURE INDICATED? NO
[2019-04-05 14:23] LABS: MEAN CORPUSCULAR HGB CONC 30.4 g/dL (32.4-35.8); MEAN CORPUSCULAR VOLUME 69.2 fL (80-100); MEAN PLATELET VOLUME 7.1 fL (7.4-10.4); PLATELET COUNT 371 x10^3/uL (130-400); RED BLOOD COUNT 4.11 x10^6/uL (3.82-5.3); RED CELL DISTRIBUTION WIDTH 22.1 % (9.6-15.2)
[2019-04-05 14:28] LABS: ALKALINE PHOSPHATASE 105 U/L (45-117); BILIRUBIN,TOTAL 0.5 mg/dL (0.2-1.0); TOTAL PROTEIN 7.7 g/dL (6.4-8.2)
[2019-04-05 14:31] LABS: AMPHETAMINE SCREEN, URINE Negative (Negative); BARBITURATE SCREEN, URINE Negative (Negative); BENZODIAZEPINE SCREEN, URINE Negative (Negative); CANNABINOID SCREEN, URINE Negative (Negative); COCAINE SCREEN, URINE Negative (Negative); METHADONE SCREEN, URINE Negative (Negative); OPIATE SCREEN, URINE Negative (Negative)
[2019-04-05 14:34] LABS: BASOPHILS # (AUTO) 0.02 x10^3/uL (0-0.1); BASOPHILS % (AUTO) 1 % (0-1); EOSINOPHILS % (AUTO) 0 % (1-7); LYMPHOCYTES # (AUTO) 0.83 x10^3/uL (1-3.4); LYMPHOCYTES % (AUTO) 16 % (22-44); MD MORPH REVIEW ONLY; MONOCYTES # (AUTO) 0.46 x10^3/uL (0.2-0.8); MONOCYTES % (AUTO) 9 % (2-9); NEUTROPHILS # (AUTO) 3.97 x10^3/uL (1.8-6.8); NEUTROPHILS % (AUTO) 75 % (42-75)
[2019-04-05 14:35] LABS: ANISOCYTOSIS 1+; HYPOCHROMIA 1+; MICROCYTOSIS 1+; OVALOCYTES 1+
[2019-04-05 14:37] LABS: <PLATELET ESTIMATE> ADEQUATE; <PLT MORPHOLOGY> NORMAL PLT MORPH
--- NOTE | 2019-04-05 14:58 | NUR ---
discussed pt's drowsiness w/ md .plan for head ct/ammonia. vss. as
--- NOTE | 2019-04-05 15:21 | NUR ---
PT TO CT. VSS.
--- NOTE | 2019-04-05 15:34 | NUR ---
BACK IN ROOM HEAD CT NEG/AMMONIA/SEPSIS NEG. RECHEKC.
--- NOTE | 2019-04-05 15:40 | NUR ---
pt continues to drift off mid conversation. vss. as
--- NOTE | 2019-04-05 16:02 | NUR ---
jackie neg. pt continues to fall asleep midsentence when speaking w/ rn. was able to hold entire conversation w/ md w/ no issue. md notified. plan for dc. taxi voucher filled out. as
[2019-04-05 16:45] VITALS: BP 116/56
== END 2019-04-05 17:28 | disposition home or self-care (01) ==
LOC: ED 17:00 → MERGE 17:00 → ED 17:28
DX: R53.1 Weakness (principal); F10.20 Alcohol dependence, uncomplicated; Y90.9 Presence of alcohol in blood, level not specified; Z72.9 Problem related to lifestyle, unspecified; Z59.0 Homelessness; D64.9 Anemia, unspecified
CPT/HCPCS: 36415; 70450; 80053; 80307; 81003; 82140; 83605; 84443; 85025; 99284

== ENCOUNTER 2019-06-11 05:07 | Emergency (ER) | payer MEDICARE, MEDICAID ==
[~2019-06-11] VITALS: Ht 170.2 cm; Wt 72.0 kg
[~2019-06-11 05:07] MED LIST changes: +FLUO20CA23 PO; -FLUO20CA8 PO; +HYDR-2995 PO; -HYDR10TA4 PO; -HYDR50TA13 PO; +HYDR50TA99 PO; -TRAZ-137 PO; +TRAZ-175 PO
--- NOTE | 2019-06-11 05:17 | NUR ---
Patient BIB [facility] c/o chest pressure and left arm pain x3 hours. Patient states she has a hx of cardiac arrest last year. Per EMS, patient's HR was 140-150s in possible afib. Patient denies nausea. States she is slightly dizzy. [facility]. Patient states her last alcoholic beverage was yesterday around noon. Patient is in NAD. Respirations even and unlabored. ECG monitoring shows sinus rhythm.
[2019-06-11] MEDS ORDERED: SODIUM CHLORIDE FLUSH 10ML SYR IVF ONE (05:30)
[2019-06-11] MEDS ORDERED: SODIUM CHLORIDE 0.9% 1,000ML IVBOLUS ONE (05:30)
[2019-06-11 06:10] LABS: INTERNATIONAL NORMALIZED RATIO 1.07 (0.93-1.1); PROTHROMBIN TIME 11.4 Seconds (9.6-11.5)
[2019-06-11 06:13] LABS: ALANINE AMINOTRANSFERASE 23 U/L (12-78); ALBUMIN 3.4 g/dL (3.4-5.0); ANION GAP 11 mmol/L (5-15); CALCIUM 9.3 mg/dL (8.5-10.1); CHLORIDE 104 mmol/L (98-107)
[2019-06-11 06:19] LABS: ALKALINE PHOSPHATASE 102 U/L (45-117); BILIRUBIN,TOTAL 1.5 mg/dL (0.2-1.0); CREATININE 0.83 mg/dL (0.55-1.02); TOTAL PROTEIN 7.8 g/dL (6.4-8.2); TROPONIN I 0.025 ng/mL (0.000-0.045)
[2019-06-11 06:22] LABS: MEAN CORPUSCULAR HEMOGLOBIN 21.8 pg (27.0-34.8); MEAN CORPUSCULAR HGB CONC 30.4 g/dL (32.4-35.8); MEAN CORPUSCULAR VOLUME 71.7 fL (80-100); MEAN PLATELET VOLUME 7.2 fL (7.4-10.4); PLATELET COUNT 372 x10^3/uL (130-400); RED BLOOD COUNT 4.94 x10^6/uL (3.82-5.3); RED CELL DISTRIBUTION WIDTH 24.2 % (9.6-15.2)
--- NOTE | 2019-06-11 06:45 | NUR ---
Report given to CHEN Zepeda and CHEN Umana.
--- NOTE | 2019-06-11 06:46 | NUR ---
Bedside report from Genna SIDDIQUI, pt care transferred at this time.
--- NOTE | 2019-06-11 06:48 | NUR ---
Pt resting on gurney, with blankets, NAD, denies additional needs, call light within reach, WCTM.
[2019-06-11 06:54] LABS: MD YES
[2019-06-11 06:57] LABS: BAND#(MANUAL) 0.08 x10^3/uL; BANDS%(MANUAL) 1 % (0-7); EOS#(MANUAL) 0.23 x10^3/uL (0.0-0.4); EOS% (MANUAL) 3 % (1-7); LYMPHS% (MANUAL) 24 % (22-44); MONOS% (MANUAL) 8 % (2-9); SEGS% (MANUAL) 64 % (42-75)
[2019-06-11 06:58] LABS: ANISOCYTOSIS 1+; HYPOCHROMIA 2+
[2019-06-11 06:59] LABS: <PLATELET ESTIMATE> ADEQUATE; <PLT MORPHOLOGY> NORMAL PLT MORPH; OVALOCYTES 1+
[2019-06-11 07:00] LABS: MICROCYTOSIS 1+
[2019-06-11 07:22] VITALS: BP 119/56
--- NOTE | 2019-06-11 07:57 | NUR ---
[facility] called & updated that pt is being released to them, pt given taxi voucher, departing ED in NAD w/ a steady gait.
== END 2019-06-11 07:59 | disposition home or self-care (01) ==
LOC: ED 06:23
DX: I48.0 Paroxysmal atrial fibrillation (principal); R00.0 Tachycardia, unspecified; F10.20 Alcohol dependence, uncomplicated; R07.2 Precordial pain; Z72.9 Problem related to lifestyle, unspecified; Y90.9 Presence of alcohol in blood, level not specified
CPT/HCPCS: 36415; 71045; 80053; 83735; 83880; 84484; 85025; 85610; 93005; 99285; J7030

== ENCOUNTER 2019-06-23 18:25 | Emergency (ER) | payer MEDICAID, MEDICARE ==
[~2019-06-23] VITALS: Ht 170.2 cm; Wt 75.0 kg
--- NOTE | 2019-06-23 18:30 | NUR ---
TASK RN: PT GIVEN ICE PACK FOR FOREHEAD. NOTED LARGE GOOSE EGG FORMING.
--- NOTE | 2019-06-23 18:45 | NUR ---
TREATING PLANT PUMPER AT BEDSIDE FOR ASSESSMENT.
--- NOTE | 2019-06-23 18:57 | NUR ---
PT AMBULATED TO BATHROOM
--- NOTE | 2019-06-23 19:44 | NUR ---
WATER AND ICE PROVIDED TO PT
--- NOTE | 2019-06-23 20:49 | NUR ---
PT RESTING IN [facility]. CRACKERS PROVIDED. VSS. NAD
[2019-06-23 21:42] VITALS: BP 95/59
--- NOTE | 2019-06-23 21:43 | NUR ---
PT RESTING IN [facility]. WARM BROTH PROVIDED
== END 2019-06-23 23:08 | disposition home or self-care (01) ==
LOC: ED 21:01
DX: S09.90XA Unspecified injury of head, initial encounter (principal); F10.129 Alcohol abuse with intoxication, unspecified; I48.91 Unspecified atrial fibrillation; I25.2 Old myocardial infarction; G40.909 Epilepsy, unspecified, not intractable, without status epilepticus; I10 Essential (primary) hypertension; Y90.0 Blood alcohol level of less than 20 mg/100 ml; W01.0XXA Fall on same level from slipping, tripping and stumbling without subsequent striking against object, initial encounter; Y93.89 Activity, other specified; Y92.410 Unspecified street and highway as the place of occurrence of the external cause; Y99.8 Other external cause status
CPT/HCPCS: 36415; 70450; 72125; 80307; 99285

== ENCOUNTER 2019-07-20 18:09 | Emergency (ER) | payer MEDICARE, MEDICAID ==
[~2019-07-20] VITALS: Ht 170.2 cm; Wt 75.0 kg
[2019-07-20 18:20] VITALS: BP 133/67
--- NOTE | 2019-07-20 18:27 | NUR ---
BIB EMS FROM [facility] "NOT FEELING WELL" X LAST NIGHT. PER EMS, PT WAS REPORTING CHEST PAIN, DENIES AT THIS TIME. PT LARGELY NON-COMPLIANT. DENIES PAIN/PRODUCTIVE COUGH/DIZZINESS/WEAKNESS. EKG BY EMS W RBBB, PT REPORTS HX OF SAME. ASA DIRECTOR ON AIR, REFUSED PIV BY EMS. SIGNIFICANT CARDIAC HX, WA X8 W STENT PLACEMENT AND CHF, NON-COMPLIANT WITH ALL MEDICATIONS. BLE WO EDEMA, DENIES ORTHOPNEA. EKG COMPLETED UPON ARRIVAL.
== END 2019-07-20 20:07 | disposition home or self-care (01) ==
LOC: ED 19:29
DX: R00.2 Palpitations (principal); F10.20 Alcohol dependence, uncomplicated; Z72.9 Problem related to lifestyle, unspecified; I48.91 Unspecified atrial fibrillation; G40.909 Epilepsy, unspecified, not intractable, without status epilepticus; M19.90 Unspecified osteoarthritis, unspecified site; I11.9 Hypertensive heart disease without heart failure; I25.2 Old myocardial infarction; Z90.49 Acquired absence of other specified parts of digestive tract; Y90.9 Presence of alcohol in blood, level not specified
CPT/HCPCS: 71045; 93005; 99283

== ENCOUNTER 2019-08-06 22:15 | Emergency (ER) | payer MEDICARE, MEDICAID ==
[~2019-08-06] VITALS: Ht 167.6 cm; Wt 75.0 kg
--- NOTE | 2019-08-06 22:36 | NUR ---
SALLIE RN: BETTY HARRISON FOR MECHANICAL GLF. PT BROUGHT FROM [facility]. IT WAS A WITNESSED FALL BY STAFF. NO LOC. +ETOH TODAY. PT HAS A LARGE HEMATOMA NOTED TO LEFT FOREHEAD. DENIES ANY NECK/BACK PAIN, ONLY PAIN TO HEAD. PT ALERT AND ORIENTED, GCS OF 15. NEURO INTACT. DENIES ANY HEADACHE. ALL MONITORING EQUIPMENT APPLIED. ALL VITALS STABLE. DR. MARTINEZ HAS EVALUATED PT. WILL CONTINUE TO MONITOR. REPORT TO PRIMARY RNCESIA
--- NOTE | 2019-08-06 22:54 | NUR ---
PT RESTING IN [facility] AT THIS TIME;
--- NOTE | 2019-08-07 00:48 | NUR ---
PT ASLEEP IN [facility] AT THIS TIME; NADN. VSS AND UPDATED IN EMR. CALL LIGHT IS WITHIN REACH OF PT AT THIS TIME.
--- NOTE | 2019-08-07 01:44 | NUR ---
REPORT FROM JESSICA RN. PT SLEEPING. EVEN RISE AND FALL OF CHEST OBSERVED. CALL LIGHT IN REACH
[2019-08-07 03:26] VITALS: BP 112/52
--- NOTE | 2019-08-07 03:27 | NUR ---
PT SLEEPING. EVEN RISE AND FALL OF CHEST OBSERVED. VSS. PT HAS NO NEEDS AT THIS TIME. CALL LIGHT IN REACH
--- NOTE | 2019-08-07 05:01 | NUR ---
PT AWAKE AND ABLE TO AMBULATE. PT GIVEN WATER AND A CAB VOUCHER. PT GETTING DRESSED.
== END 2019-08-07 05:16 | disposition home or self-care (01) ==
LOC: ED 23:34
DX: S00.83XA Contusion of other part of head, initial encounter (principal); S09.90XA Unspecified injury of head, initial encounter; G31.2 Degeneration of nervous system due to alcohol; I11.9 Hypertensive heart disease without heart failure; I25.2 Old myocardial infarction; I48.91 Unspecified atrial fibrillation; M19.90 Unspecified osteoarthritis, unspecified site; Z90.49 Acquired absence of other specified parts of digestive tract; W18.30XA Fall on same level, unspecified, initial encounter; Y93.89 Activity, other specified; Y92.009 Unspecified place in unspecified non-institutional (private) residence as the place of occurrence of the external cause; Y99.8 Other external cause status
CPT/HCPCS: 70450; 72125; 99285

== ENCOUNTER 2019-08-26 10:42 | Emergency (ER) | payer MEDICARE, MEDICAID ==
[~2019-08-26] VITALS: Ht 170.2 cm; Wt 70.0 kg
[~2019-08-26 10:42] MED LIST changes: +PHEN-582 PO; +QUET25TA5 PO
[2019-08-26] MEDS ORDERED: TRAZ150T62 PO (10:53)
--- NOTE | 2019-08-26 13:07 | NUR ---
RECEIVED REPORT FROM CYNTHIA SIDDIQUI, ASSUMING CARE OF PT
[2019-08-26 13:31] VITALS: BP 111/60
--- NOTE | 2019-08-26 13:31 | NUR ---
PT SLEEPING IN BED, VSS. PT STILL REQUIRING SUP O2 WHILE SLEEPING TO KEEP SATS WNL. EASILY AROUSED TO VERBAL STIMULI. ALL NEEDS MET AT THIS TIME. CALL LIGHT WITHIN REACH
--- NOTE | 2019-08-26 14:14 | NUR ---
PT GIVEN BROTH PER REQUEST
--- NOTE | 2019-08-26 14:58 | NUR ---
YUE RN: Patient/Caregiver given discharge instructions and they have confirmed that they understand the instructions. Patient ambulatory with steady gait.
== END 2019-08-26 15:01 | disposition home or self-care (01) ==
LOC: ED 12:55
DX: F10.220 Alcohol dependence with intoxication, uncomplicated (principal); R41.82 Altered mental status, unspecified; R04.0 Epistaxis; I45.10 Unspecified right bundle-branch block; I10 Essential (primary) hypertension; Y90.0 Blood alcohol level of less than 20 mg/100 ml
CPT/HCPCS: 36415; 80307; 93005; 99284

== ENCOUNTER 2019-08-28 16:18 | Emergency (ER) | payer MEDICARE, MEDICAID ==
[~2019-08-28] VITALS: Ht 170.2 cm; Wt 68.3 kg
[~2019-08-28 16:18] MED LIST changes: +TRAZ150T62 PO
[2019-08-28] MEDS ORDERED: ACETAMINOPHEN 325 MG TABLET PO ONE (17:00)
[2019-08-28] MEDS ORDERED: ACETAMINOPHEN 325 MG TABLET ONE (17:34)
[2019-08-28 17:37] LABS: ALBUMIN 3.2 g/dL (3.4-5.0); ANION GAP 15 mmol/L (5-15); CALCIUM 8.5 mg/dL (8.5-10.1); CHLORIDE 102 mmol/L (98-107); CREATININE 0.85 mg/dL (0.55-1.02)
[2019-08-28] MEDS ORDERED: LORazepam 1MG TABLET ONE (17:39)
[2019-08-28 17:41] LABS: TROPONIN I 0.031 ng/mL (0.000-0.045)
[2019-08-28] MEDS ORDERED: LORazepam 1MG TABLET PO ONE (18:00)
[2019-08-28 18:14] LABS: MEAN CORPUSCULAR HEMOGLOBIN 24.4 pg (27.0-34.8); MEAN CORPUSCULAR HGB CONC 31.8 g/dL (32.4-35.8); MEAN CORPUSCULAR VOLUME 76.7 fL (80-100); MEAN PLATELET VOLUME 6.9 fL (7.4-10.4); PLATELET COUNT 357 x10^3/uL (130-400); RED BLOOD COUNT 4.05 x10^6/uL (3.82-5.3)
[2019-08-28] MEDS ORDERED: QUETIAPINE 25MG TABLET ONE (18:19)
[2019-08-28 18:21] LABS: MD YES
[2019-08-28 18:23] LABS: LYMPH#(MANUAL) 2.26 x10^3/uL (1-3.4); LYMPHS% (MANUAL) 31 % (22-44); MONOS#(MANUAL) 0.73 x10^3/uL (0.3-2.7); MONOS% (MANUAL) 10 % (2-9); SEG#(MANUAL) 4.31 x10^3/uL (1.8-6.8); SEGS% (MANUAL) 59 % (42-75)
[2019-08-28 18:24] LABS: <PLATELET ESTIMATE> ADEQUATE; <PLT MORPHOLOGY> NORMAL PLT MORPH; ANISOCYTOSIS 2+; HYPOCHROMIA 1+; MICROCYTOSIS 1+; OVALOCYTES 1+
[2019-08-28 18:37] VITALS: BP 122/51
--- NOTE | 2019-08-28 18:55 | NUR ---
REPORT FROM TAYE SIDDIQUI, ASSUMING CARE OF PT AT THIS TIME
--- NOTE | 2019-08-28 19:30 | NUR ---
PT REQUESTING ADDITIONAL MEDICATIONS FOR DC HOME. PROVIDER UPDATED. NEW PAPERS TO BE PRINTED
--- NOTE | 2019-08-28 19:43 | NUR ---
PT NOW REQUESTING ADDITIONAL MEDICATIONS BEFORE LEAVING, PT HAS BEEN EDUCATED THAT SHE IS DISCHARGED ALREADY BUT SHE IS WELCOME TO GET HER MEDS FILLED TONIGHT.
[2019-08-28] MEDS ORDERED: QUETIAPINE 25MG TABLET PO SCH (21:00)
== END 2019-08-28 19:52 | disposition home or self-care (01) ==
LOC: ED 18:17
DX: R06.00 Dyspnea, unspecified (principal); R07.89 Other chest pain; R11.2 Nausea with vomiting, unspecified; R94.31 Abnormal electrocardiogram [ECG] [EKG]; Z76.0 Encounter for issue of repeat prescription; F10.10 Alcohol abuse, uncomplicated; F17.200 Nicotine dependence, unspecified, uncomplicated; Y90.9 Presence of alcohol in blood, level not specified
CPT/HCPCS: 36415; 71045; 80048; 82040; 84484; 85025; 93005; 99285

== ENCOUNTER 2019-08-29 14:27 | Emergency (ER) | payer MEDICARE, MEDICAID ==
[~2019-08-29] VITALS: Ht 170.2 cm; Wt 72.0 kg
[~2019-08-29 14:27] MED LIST changes: +MULT-449 PO; -MULT1TAB60 PO
[2019-08-29] MEDS ORDERED: SULFAMETH./TRIMETHOPRIM DS 800MG/160MG TABLET ONE (14:45)
[2019-08-29] MEDS ORDERED: SODIUM CHLORIDE FLUSH 10ML SYR IVF ONE (15:30)
[2019-08-29] MEDS ORDERED: SODIUM CHLORIDE 0.9% 1,000ML IVBOLUS ONE (15:30)
--- NOTE | 2019-08-29 15:55 | NUR ---
PT MEDICATED PER MD ORDER. PT HAS VARYING COMPLAINTS OF PASSING OUT, FALLING BACKWARD ON HER WHEEL CHAIR AND HITTING HEAD, AND NO COMPLAINTS. PT ON MONITOR. WAITING FOR RESULTS.
[2019-08-29 16:26] LABS: ALBUMIN 3.2 g/dL (3.4-5.0); ANION GAP 10 mmol/L (5-15); CALCIUM 8.1 mg/dL (8.5-10.1); CHLORIDE 102 mmol/L (98-107); CREATININE 0.92 mg/dL (0.55-1.02)
[2019-08-29 16:33] LABS: MEAN CORPUSCULAR HEMOGLOBIN 24.3 pg (27.0-34.8); MEAN CORPUSCULAR HGB CONC 31.3 g/dL (32.4-35.8); MEAN CORPUSCULAR VOLUME 77.8 fL (80-100); MEAN PLATELET VOLUME 6.8 fL (7.4-10.4); PLATELET COUNT 364 x10^3/uL (130-400); RED CELL DISTRIBUTION WIDTH 27.3 % (9.6-15.2)
[2019-08-29 17:00] LABS: ANISOCYTOSIS 2+; BASOPHILS # (AUTO) 0.09 x10^3/uL (0-0.1); BASOPHILS % (AUTO) 1 % (0-1); EOSINOPHILS # (AUTO) 0.07 x10^3/uL (0-0.4); EOSINOPHILS % (AUTO) 1 % (1-7); LYMPHOCYTES # (AUTO) 2.19 x10^3/uL (1-3.4); LYMPHOCYTES % (AUTO) 28 % (22-44); MD MORPH REVIEW ONLY; MICROCYTOSIS 1+; MONOCYTES % (AUTO) 9 % (2-9); NEUTROPHILS # (AUTO) 4.74 x10^3/uL (1.8-6.8); NEUTROPHILS % (AUTO) 61 % (42-75)
[2019-08-29 17:01] LABS: HYPOCHROMIA 1+; OVALOCYTES 1+; POLYCHROMASIA 1+
[2019-08-29 17:02] LABS: <PLATELET ESTIMATE> ADEQUATE; <PLT MORPHOLOGY> NORMAL PLT MORPH
--- NOTE | 2019-08-29 17:19 | NUR ---
DR. POWELL AT BEDSIDE. PT TO BE DISCHARGED. PT DISCONNECTED PER PT RQUEST AND IV REMOVED.
[2019-08-29 18:06] VITALS: BP 99/67
== END 2019-08-29 18:09 | disposition home or self-care (01) ==
LOC: ED 16:00
DX: I95.9 Hypotension, unspecified (principal); E86.0 Dehydration; R94.31 Abnormal electrocardiogram [ECG] [EKG]; F10.220 Alcohol dependence with intoxication, uncomplicated; I10 Essential (primary) hypertension; Y90.9 Presence of alcohol in blood, level not specified
CPT/HCPCS: 36415; 71045; 80048; 80307; 82040; 85025; 93005; 96360; 99285; J7030

== ENCOUNTER 2019-10-29 08:01 | Emergency (ER) | payer MEDICARE, MEDICAID ==
[~2019-10-29] VITALS: Ht 160 cm; Wt 70.0 kg
--- NOTE | 2019-10-29 08:59 | NUR ---
Pt refusing lab draw, provider notified.
== END 2019-10-29 09:05 | disposition left against medical advice (07) ==
LOC: ED 09:01
DX: F10.129 Alcohol abuse with intoxication, unspecified (principal); Y90.9 Presence of alcohol in blood, level not specified; I48.91 Unspecified atrial fibrillation; I25.2 Old myocardial infarction; G40.909 Epilepsy, unspecified, not intractable, without status epilepticus; Z90.49 Acquired absence of other specified parts of digestive tract
CPT/HCPCS: 99283

== ENCOUNTER 2019-10-29 13:31 | Emergency (ER) | payer MEDICARE, MEDICAID ==
[~2019-10-29] VITALS: Ht 165.1 cm; Wt 77.3 kg
--- NOTE | 2019-10-29 13:43 | NUR ---
BETTY HARRISON FROM [facility]. PT ALTERED. AOX3. THINKS THE YEAR IS 2009. + ETOH TODAY PER PT HAD VODKA/TEQUILA. PT RESTING ON GURNEY. NADER. MONITORS APPLIED.
--- NOTE | 2019-10-29 13:53 | NUR ---
TASK RN: XRAY AT BEDSIDE
[2019-10-29 14:16] LABS: BASOPHILS # (AUTO) 0.05 x10^3/uL (0-0.1); BASOPHILS % (AUTO) 1 % (0-1); EOSINOPHILS # (AUTO) 0.05 x10^3/uL (0-0.4); EOSINOPHILS % (AUTO) 1 % (1-7); LYMPHOCYTES % (AUTO) 29 % (22-44); MD MORPH REVIEW ONLY; MEAN CORPUSCULAR HEMOGLOBIN 23.9 pg (27.0-34.8); MEAN CORPUSCULAR HGB CONC 31.1 g/dL (32.4-35.8); MEAN PLATELET VOLUME 5.6 fL (7.4-10.4); MONOCYTES # (AUTO) 0.28 x10^3/uL (0.2-0.8); MONOCYTES % (AUTO) 5 % (2-9); NEUTROPHILS # (AUTO) 3.56 x10^3/uL (1.8-6.8); NEUTROPHILS % (AUTO) 64 % (42-75); PLATELET COUNT 691 x10^3/uL (130-400); RED BLOOD COUNT 4.24 x10^6/uL (3.82-5.3); RED CELL DISTRIBUTION WIDTH 23.5 % (9.6-15.2)
--- NOTE | 2019-10-29 14:22 | NUR ---
PT RESTING ON GURNEY. NADN. DUPONT.
[2019-10-29 14:27] LABS: ALANINE AMINOTRANSFERASE 20 U/L (12-78); ALBUMIN 3.1 g/dL (3.4-5.0); ANION GAP 12 mmol/L (5-15); CALCIUM 7.9 mg/dL (8.5-10.1); CHLORIDE 109 mmol/L (98-107)
[2019-10-29 14:32] LABS: ALKALINE PHOSPHATASE 111 U/L (45-117); BILIRUBIN,TOTAL 0.3 mg/dL (0.2-1.0); TOTAL PROTEIN 8.6 g/dL (6.4-8.2); TROPONIN I < 0.015 ng/mL (0.000-0.045)
[2019-10-29 14:39] LABS: ANISOCYTOSIS 2+; HYPOCHROMIA 1+; MICROCYTOSIS 1+; POLYCHROMASIA 1+
[2019-10-29 14:40] LABS: <PLATELET ESTIMATE> INCREASED; OVALOCYTES 1+; SMALL PLATELETS 1+
[2019-10-29 15:10] VITALS: BP 116/84
--- NOTE | 2019-10-29 16:01 | NUR ---
PT PROVIDED W/ DINNER TRAY. PIV REMOVED. PT RESTING ON DAXA. NADER.
== END 2019-10-29 16:24 | disposition left against medical advice (07) ==
LOC: ED 13:48
DX: F10.120 Alcohol abuse with intoxication, uncomplicated (principal); I10 Essential (primary) hypertension; R07.9 Chest pain, unspecified; I48.91 Unspecified atrial fibrillation; I25.2 Old myocardial infarction; G40.909 Epilepsy, unspecified, not intractable, without status epilepticus; Z90.49 Acquired absence of other specified parts of digestive tract; Y90.9 Presence of alcohol in blood, level not specified
CPT/HCPCS: 36415; 71045; 80053; 80307; 84484; 85025; 93005; 99283; 99285

== ENCOUNTER 2019-12-09 12:49 | Emergency (ER) | payer MEDICARE, MEDICAID ==
[~2019-12-09] VITALS: Ht 165.1 cm; Wt 70.0 kg
--- NOTE | 2019-12-09 12:59 | NUR ---
LYING IN GURNEY QUIETLY WITH EYES CLOSED AT THIS TIME
[2019-12-09] MEDS ORDERED: THIAMINE 100MG TABLET PO ONE (13:30)
--- NOTE | 2019-12-09 14:14 | NUR ---
BREATHING EVEN AND UNLABORED, SLEEPING. WILL CONTINUE TO MONITOR
[2019-12-09 14:29] VITALS: BP 100/61
[2019-12-09] MEDS ORDERED: THIAMINE 100MG TABLET ONE (15:12)
--- NOTE | 2019-12-09 16:40 | NUR ---
PT AMBULATED TO BATHROOM WITHOUT ASSISTANCE AND BACK TO ROOM. PROVIDED SNACKS
--- NOTE | 2019-12-09 17:02 | NUR ---
PT PROVIDED FOOD TRAY TO GO AND BUS PASS. PT ABLE TO WALK WITHOUT ASSISTANCE FROM ER.
== END 2019-12-09 17:01 | disposition home or self-care (01) ==
LOC: ED 13:56
DX: F10.129 Alcohol abuse with intoxication, unspecified (principal); E86.0 Dehydration; I25.2 Old myocardial infarction; I11.9 Hypertensive heart disease without heart failure; I48.91 Unspecified atrial fibrillation; G40.909 Epilepsy, unspecified, not intractable, without status epilepticus; M19.90 Unspecified osteoarthritis, unspecified site; Y90.9 Presence of alcohol in blood, level not specified; Z90.49 Acquired absence of other specified parts of digestive tract
CPT/HCPCS: 99283

== ENCOUNTER 2019-12-26 17:52 | Emergency (ER) | payer MEDICARE, MEDICAID ==
[~2019-12-26] VITALS: Ht 170.2 cm; Wt 70.0 kg
--- NOTE | 2019-12-26 17:59 | NUR ---
DR ORTEGA AT BS. PT C/O PAIN AT PACEMAKER SITE X "A COUPLE DAYS". DENIES OTHER PAIN. RESP EVEN & UNLABORED. PER EMS, PT REPORTED DRINKING VODKA TODAY. PT CURRENTLY DENIES ETOH INTAKE. PT SOMEWHAT UNCOOPERATIVE WITH INSTRUCTIONS.
--- NOTE | 2019-12-26 18:08 | NUR ---
PT ENDORSED TO BREAK RN.
[2019-12-26 18:22] VITALS: BP 120/65
[2019-12-26] MEDS ORDERED: SODIUM CHLORIDE FLUSH 10ML SYR IVF ONE (18:30)
[2019-12-26 18:48] LABS: ALANINE AMINOTRANSFERASE 23 U/L (12-78); ALBUMIN 3.4 g/dL (3.4-5.0); ANION GAP 11 mmol/L (5-15); CALCIUM 8.7 mg/dL (8.5-10.1); CHLORIDE 106 mmol/L (98-107); CREATININE 0.89 mg/dL (0.55-1.02)
--- NOTE | 2019-12-26 18:50 | NUR ---
PT CARE RESUMED. PT RESTING QUIETLY ON [facility].
[2019-12-26 18:54] LABS: ALKALINE PHOSPHATASE 125 U/L (45-117); BILIRUBIN,TOTAL 0.4 mg/dL (0.2-1.0); TOTAL PROTEIN 7.9 g/dL (6.4-8.2); TROPONIN I < 0.015 ng/mL (0.000-0.045)
[2019-12-26 18:58] LABS: MD YES; MEAN CORPUSCULAR HEMOGLOBIN 25.6 pg (27.0-34.8); MEAN CORPUSCULAR HGB CONC 31.5 g/dL (32.4-35.8); MEAN PLATELET VOLUME 6.1 fL (7.4-10.4); PLATELET COUNT 341 x10^3/uL (130-400); RED BLOOD COUNT 4.23 x10^6/uL (3.82-5.3); RED CELL DISTRIBUTION WIDTH 24.4 % (9.6-15.2)
[2019-12-26 19:00] LABS: ANISOCYTOSIS 2+; BASOS#(MANUAL) 0.13 x10^3/uL (0-0.1); BASOS% (MANUAL) 2 % (0-1); LYMPH#(MANUAL) 1.63 x10^3/uL (1-3.4); LYMPHS% (MANUAL) 25 % (22-44); MONOS#(MANUAL) 0.39 x10^3/uL (0.3-2.7); MONOS% (MANUAL) 6 % (2-9); SEG#(MANUAL) 4.36 x10^3/uL (1.8-6.8); SEGS% (MANUAL) 67 % (42-75)
[2019-12-26 19:01] LABS: HYPOCHROMIA 1+
[2019-12-26 19:02] LABS: <PLATELET ESTIMATE> ADEQUATE; <PLT MORPHOLOGY> NORMAL PLT MORPH; MICROCYTOSIS 1+; OVALOCYTES 1+
--- NOTE | 2019-12-26 19:11 | NUR ---
LAB CALLS WITH CRITICAL ETOH .[id number]
--- NOTE | 2019-12-26 19:36 | NUR ---
PT FOUND DRESSED AND WALKING IN THE HALLWAY; GAIT STEADY. PT PULLED IV LOCK OUT; NO ACTIVE BLEEDING AT SITE. REQUESTING TAXI VOUCHER. ERP WILL BE NOTIFIED.
--- NOTE | 2019-12-26 19:57 | NUR ---
UNABLE TO COMPLETE MED REC; PT REFUSED TO ANSWER RELATED QUESTIONS.
== END 2019-12-26 20:00 | disposition home or self-care (01) ==
LOC: ED 18:04
DX: R07.89 Other chest pain (principal); F10.220 Alcohol dependence with intoxication, uncomplicated; I48.91 Unspecified atrial fibrillation; I45.10 Unspecified right bundle-branch block; Z90.49 Acquired absence of other specified parts of digestive tract
CPT/HCPCS: 36415; 71045; 80053; 80307; 83880; 84484; 85025; 93005; 99285

== ENCOUNTER 2020-01-19 19:31 | Emergency (ER) | payer MEDICARE, MEDICAID ==
[~2020-01-19] VITALS: Ht 170.2 cm; Wt 70.0 kg
[2020-01-19] MEDS ORDERED: TRAZ-175 PO (19:45)
[2020-01-19] MEDS ORDERED: OMEP-110 PO (19:45)
[2020-01-19] MEDS ORDERED: RIVA20TA PO (19:45)
--- NOTE | 2020-01-19 19:47 | NUR ---
Pt BIBA for an unknown complaint. Per EMS the patient motioned to bystanders that she was having difficulty breathing. Patient comes in and walks from the ambulance [facility] to hospital bed with steady gait. Patient denies pain, but con't to state she is a little SOB. Pt noted to be 97% on RA. Patient also noted to be intoxicated and states she had a pacemaker put in last month. Patient placed on telemetry monitor and continuous oximeter. Will con't to monitor
[2020-01-19 20:19] LABS: BASOPHILS % (AUTO) 1 % (0-1); EOSINOPHILS % (AUTO) 0 % (1-7); LYMPHOCYTES % (AUTO) 51 % (22-44); MEAN CORPUSCULAR HEMOGLOBIN 25.4 pg (27.0-34.8); MEAN CORPUSCULAR HGB CONC 31.4 g/dL (32.4-35.8); MEAN PLATELET VOLUME 6.6 fL (7.4-10.4); MONOCYTES % (AUTO) 4 % (2-9); NEUTROPHILS % (AUTO) 44 % (42-75); PLATELET COUNT 396 x10^3/uL (130-400); RED BLOOD COUNT 5.08 x10^6/uL (3.82-5.3)
[2020-01-19 20:25] LABS: ALBUMIN 3.9 g/dL (3.4-5.0); ANION GAP 15 mmol/L (5-15); CALCIUM 8.9 mg/dL (8.5-10.1); CHLORIDE 106 mmol/L (98-107)
[2020-01-19 20:40] LABS: MD MORPH REVIEW ONLY
[2020-01-19 20:41] LABS: ANISOCYTOSIS 2+
[2020-01-19 20:42] LABS: <PLATELET ESTIMATE> ADEQUATE; <PLT MORPHOLOGY> NORMAL PLT MORPH; HYPOCHROMIA 1+; MICROCYTOSIS 1+; OVALOCYTES 1+
--- NOTE | 2020-01-19 21:14 | NUR ---
Pt oxygen saturation kept drowing to mid to upper 80's. Place on 2L NC, O2 went up to 97%. Patient resting at this time. Will con't to monitor
[2020-01-20 00:17] VITALS: BP 116/68
--- NOTE | 2020-01-20 01:35 | NUR ---
Pt given discharge instruction but refused to take them. Patient also given taxi vocher. Patient ambulated out of the ER without difficulty and steady gait.
== END 2020-01-20 01:37 | disposition home or self-care (01) ==
LOC: ED 21:44
DX: R07.89 Other chest pain (principal); F10.220 Alcohol dependence with intoxication, uncomplicated; R94.31 Abnormal electrocardiogram [ECG] [EKG]; I10 Essential (primary) hypertension; I25.2 Old myocardial infarction; I48.91 Unspecified atrial fibrillation; M19.90 Unspecified osteoarthritis, unspecified site; Z90.49 Acquired absence of other specified parts of digestive tract; Y90.9 Presence of alcohol in blood, level not specified
CPT/HCPCS: 36415; 71045; 80048; 80307; 82040; 84484; 85025; 93005; 99285

== ENCOUNTER 2020-02-20 19:42 | Emergency (ER) | payer MEDICARE, MEDICAID ==
[~2020-02-20] VITALS: Ht 167.6 cm; Wt 72.0 kg
[~2020-02-20 19:42] MED LIST changes: +RIVA20TA PO
--- NOTE | 2020-02-20 20:25 | NUR ---
PATIENT BIB [facility] WITH CHIEF C/O "I DON'T FEEL GOOD, LIKE THE FLU." PATIENT STATES SHE HAD A PACEMAKER PLACED IN OCTOBER OF 2019 AND JUST DOESN'T FEEL GOOD. PATIENT DENIES N/V/D, DENIES COUGH. PATIENT STATES SHE HAS SOB AND SOME CHEST PAIN. PATIENT'S TEMP IS 97.8, BP 132/73, HR 88, O2 SAT 98% RA. NO SIGNS OF ACUTE DISTRESS, SIDE RAILS UP X2, WARM BLANKET PROVIDED, CALL LIGHT WITHIN REACH.
[2020-02-20 21:36] LABS: BASOPHILS % (AUTO) 3 % (0-1); EOSINOPHILS % (AUTO) 3 % (1-7); LYMPHOCYTES % (AUTO) 39 % (22-44); MEAN CORPUSCULAR HEMOGLOBIN 25.6 pg (27.0-34.8); MEAN CORPUSCULAR HGB CONC 31.7 g/dL (32.4-35.8); MEAN PLATELET VOLUME 6.4 fL (7.4-10.4); MONOCYTES % (AUTO) 7 % (2-9); NEUTROPHILS % (AUTO) 48 % (42-75); PLATELET COUNT 398 x10^3/uL (130-400); RED BLOOD COUNT 5.28 x10^6/uL (3.82-5.3)
[2020-02-20 21:40] LABS: MD NO
[2020-02-20 21:49] LABS: ALBUMIN 3.9 g/dL (3.4-5.0); ANION GAP 9 mmol/L (5-15); CALCIUM 8.9 mg/dL (8.5-10.1); CHLORIDE 109 mmol/L (98-107)
[2020-02-20 21:52] LABS: ALANINE AMINOTRANSFERASE 21 U/L (12-78); ALKALINE PHOSPHATASE 150 U/L (45-117); BILIRUBIN,TOTAL 0.4 mg/dL (0.2-1.0); CREATININE 0.96 mg/dL (0.55-1.02); TOTAL PROTEIN 9.4 g/dL (6.4-8.2); TROPONIN I 0.035 ng/mL (0.000-0.045)
--- NOTE | 2020-02-20 21:53 | NUR ---
Anette rubio in [facility] - 02/20/20 at 2246 by [email or web address] PATIENT MEDICALLY CLEARED. LEFT IN CUSTODY WITH [facility] TO BE TAKEN TO [facility].
[2020-02-20] MEDS ORDERED: FUROSEMIDE 40 MG TABLET ONE (22:25)
[2020-02-20 22:51] VITALS: BP 117/70
[2020-02-21] MEDS ORDERED: FUROSEMIDE 40 MG TABLET PO SCH (09:00)
== END 2020-02-20 22:54 | disposition home or self-care (01) ==
LOC: ED 21:16
DX: R07.89 Other chest pain (principal); R06.00 Dyspnea, unspecified; I11.0 Hypertensive heart disease with heart failure; I50.9 Heart failure, unspecified; I45.10 Unspecified right bundle-branch block; I48.91 Unspecified atrial fibrillation; I25.2 Old myocardial infarction; G40.909 Epilepsy, unspecified, not intractable, without status epilepticus; J44.9 Chronic obstructive pulmonary disease, unspecified
CPT/HCPCS: 36415; 71045; 80053; 83880; 84484; 85025; 93005; 99285